=== PATIENT | female | born 1930 | race Caucasian/White ===

== ENCOUNTER 2020-09-17 20:46 | Inpatient (IN) ==
[2020-09-17] MEDS ORDERED: ONDANSETRON INJ 2 MG/ML 2 ML VIAL IV STA (22:13)
[2020-09-17 22:37] LABS: Basophils # (auto) 0.02 K/uL (0-0.2); Basophils % (auto) 0.2 %; Eosinophils # (auto) 0.04 K/uL (0-0.5); Eosinophils % (auto) 0.3 %; Hematocrit (blood only) 42.7 % (37-47); Hemoglobin 14.4 g/dL (12.0-16.0); Immature Granulocytes # (auto) 0.03 K/uL (0.00-0.02); Immature Granulocytes % (auto) 0.3 %; Lymphocytes # (auto) 1.06 K/uL (1.2-3.4); Mean Corpuscular Hgb Conc 33.7 g/dL (32-36); Mean Corpuscular Volume 94.9 fL (80-100); Monocytes # (auto) 0.58 K/uL (0.11-0.59); Monocytes % (auto) 4.9 %; Neutrophils # (auto) 10.07 K/uL (1.4-6.5); Neutrophils % (auto) 85.3 %; Platelet Count 250 K/uL (130-400); RDW Coefficient of Variation 13.2 % (11.5-14.5); RDW Standard Deviation 45.8 fL (36.4-46.3)
[2020-09-17 22:56] LABS: Appearance Urine Cloudy (Clear); Bacteria Urine Automated 4+ (Negative); Bilirubin Urine Negative (Negative); Blood Urine Trace (Negative); Color Urine Dark Yellow; Epithelial Cell Urine Auto 20-30 /lpf (0-5); Glucose Urine UA Negative (Negative); Ketones Urine Trace (Negative); Leukocyte Esterase Urine Negative (Negative); Nitrite Urine Positive (Negative); Protein Urine 3+ (Negative); RBC Urine Automated 0-4 /hpf (0-4); Specific Gravity Urine 1.024 (1.000-1.030); Urobilinogen Urine Negative (Negative); pH Urine 5.5 (4.5-7.5)
[2020-09-17 22:58] LABS: Albumin Level 3.4 gm/dl (3.4-5.0); BUN Creatinine Ratio 24.5 (10-20); Calcium 9.1 mg/dl (8.5-10.1); Creatinine Clr Calc Pharmacy 27.9 ml/min; Est GFR (Non-African American) 38.9 ml/min; Potassium 3.6 mmol/L (3.5-5.1)
[2020-09-17 23:01] LABS: Albumin Globulin Ratio 0.7 (0.9-2); Bilirubin,Total 0.4 mg/dl (0.2-1); Globulin 4.6 gm/dl (2.5-4.0)
[2020-09-17] MEDS ORDERED: OPTIRAY 320 100ml IV ONE (23:10)
[2020-09-17] MEDS ORDERED: cefTRIAXone SODIUM 1,000 MG/50 ML BAG IV STA (23:12)
[2020-09-17] MEDS ORDERED: SODIUM CHLORIDE 0.9% 500 ML IV ONE (23:12)
[2020-09-17] MEDS ORDERED: DAPTOmycin 350 MG in SYRINGE 0 ML IV ONE (23:23)
--- NOTE | 2020-09-18 00:32 | Emergency Department Note ---
History of Present Illness General Chief complaint: Nausea Stated complaint: n/v/d Time Seen by Provider: 09/17/20 22:03 Source: EMS Mode of arrival: EMS Limitations: other (baseline dementia) History of Present Illness Maximum Pain Intensity: 4 This patient is an 89-year-old female who presents via EMS for evaluation of nausea, vomiting and diarrhea. Patient is a resident at [facility] and staff there reported symptoms started tonight. On arrival, patient was incontinent of stool. Patient has dementia at baseline and is unable to contribute to the history. Home Medications Medication Instructions Recorded Confirmed Type aspirin 81 mg tablet,delayed 81 mg PO QAM 08/27/19 09/17/20 History release (Aspirin Low Dose) metoprolol succinate 25 mg 25 mg PO QAM 08/27/19 09/17/20 History tablet,extended release 24 hr risperidone 0.5 mg tablet 0.5 mg PO BID 08/27/19 09/17/20 History acetaminophen 325 mg tablet 650 mg PO Q8H PRN MDD 3 GMS 11/13/19 09/17/20 History APAP/24 HOURS multivitamin (Daily-Shaunna) 1 tab PO QAM 11/13/19 09/17/20 History melatonin 3 mg tablet 3 mg PO HS 04/09/20 09/17/20 History furosemide 20 mg tablet 20 mg PO MOWEFR 07/30/20 09/17/20 History lorazepam 0.5 mg tablet 0.5 mg PO BID 09/05/20 09/17/20 History mirtazapine 15 mg disintegrating 15 mg PO HS 09/05/20 09/17/20 History tablet Allergies Allergy/AdvReac Type Severity Reaction Status Date / Time clonidine Allergy Unknown Verified 09/17/20 22:07 hydrochlorothiazide Allergy Unknown Verified 09/17/20 22:07 nitrofurantoin Allergy Unknown Verified 09/17/20 22:07 Sulfa (Sulfonamide Allergy Unknown Verified 09/17/20 22:07 Antibiotics) milk AdvReac Gastrointestinal Verified 09/17/20 22:07 Upset Past Med/Surg History Medical History (Updated 09/18/20 @ 06:38 by Shaista Vargas PA-C) Anxiety with depression Dementia Fall HTN (hypertension) Social History Smoking Status: Never smoker Hx Substance Use: No Preferred Language: St Helenian Communication 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 Beliefs That Will Affect Care: None Current Living Situation: Personal Care Facility Feels Safe at Home: Yes Assistive Devices: None Review of Systems A total of 10 systems reviewed and were otherwise negative Physical Exam Vital Signs Vital Signs - 24 hr 09/17/20 20:53 09/17/20 20:56 09/17/20 21:00 Temperature 36.9 C Temperature Source Oral Pulse Rate 88 82 86 Pulse Rate from SpO2 Sensor Pulse Rhythm Irregular Pulse Strength Normal Respiratory Rate 27 H 20 13 Respiratory Effort / Characteristics Non-Labored Respiratory Depth Normal Blood Pressure 180/76 H 180/76 H Blood Pressure Mean 110 110 Blood Pressure Position Lying Pulse Oximetry 98 Oxygen Delivery Method Room Air Sepsis Recent Fever Within 48 Hours No Sepsis New/Unexplained Change in Mental Status No Sepsis Action Taken by Nursing No Action Required 09/17/20 22:01 09/17/20 22:31 09/17/20 23:01 Temperature Temperature Source Pulse Rate 88 89 84 Pulse Rate from SpO2 Sensor 90 110 H Pulse Rhythm Pulse Strength Respiratory Rate 9 L 26 H 27 H Respiratory Effort / Characteristics Respiratory Depth Blood Pressure 193/102 H 211/69 H Blood Pressure Mean 132 116 Blood Pressure Position Pulse Oximetry 97 97 90 Oxygen Delivery Method Room Air Room Air Room Air Sepsis Recent Fever Within 48 Hours Sepsis New/Unexplained Change in Mental Status Sepsis Action Taken by Nursing 09/17/20 23:30 Temperature Temperature Source Pulse Rate 87 Pulse Rate from SpO2 Sensor 85 Pulse Rhythm Pulse Strength Respiratory Rate 0 L Respiratory Effort / Characteristics Respiratory Depth Blood Pressure 211/105 H Blood Pressure Mean 140 Blood Pressure Position Pulse Oximetry 94 Oxygen Delivery Method Sepsis Recent Fever Within 48 Hours Sepsis New/Unexplained Change in Mental Status Sepsis Action Taken by Nursing VITALS: Vitals are noted on the nurse's note and reviewed by myself. GENERAL: This is an 89-year-old female, laying on her side in bed. SKIN: The skin was without rashes. EARS: External auditory canals clear, tympanic membranes pearly christine without erythema or effusion bilaterally. EYES: Pupils equal round and reactive to light and accommodation. NOSE: Patent, turbinates without inflammation or discharge. MOUTH: Mucous membranes slightly dry. NECK: Supple without nuchal rigidity. No lymphadenopathy. HEART: Regular rate and rhythm without murmurs gallops or rubs. LUNGS: Clear to auscultation bilaterally without wheezes, rales or rhonchi. ABDOMEN: Positive bowel sounds x 4. Soft, no apparent tenderness to palpation. NEURO: Patient is oriented to person only. Course Administered Medications Pantoprazole Sodium 40 mg/ (Syringe) 10 mls @ 5 mls/min IV BID MINI Stop: 10/18/20 02:44 Last Admin: 09/18/20 03:20 Dose: 5 mls/min Documented by: [id number] Parenteral Electrolytes (Normosol-R) 1,000 mls @ 100 mls/hr IV .Q10H MINI Stop: 10/18/20 03:29 Last Admin: 09/18/20 04:11 Dose: 100 mls/hr Documented by: [id number] Risperidone (Risperidone 0.5 Mg Tablet) 0.5 mg PO BID MINI Stop: 10/18/20 02:36 Last Admin: 09/18/20 04:00 Dose: Not Given Documented by: [id number] Discontinued Medications Sodium Chloride (Nss) 500 mls @ 999 mls/hr IV .Q31M ONE Stop: 09/17/20 23:42 Last Infusion: 09/18/20 03:00 Dose: 0 mls/hr Documented by: [id number] Admin: 09/18/20 00:29 Dose: 999 mls/hr Documented by: [id number] Ceftriaxone Sodium (Rocephin) 1,000 mg in 50 mls @ 100 mls/hr IV NOW STA Stop: 09/17/20 23:41 Last Infusion: 09/18/20 00:58 Dose: 0 mls/hr Documented by: [id number] Admin: 09/18/20 00:27 Dose: 100 mls/hr Documented by: [id number] Daptomycin 350 mg/ Syringe 7 mls @ 3.5 mls/min IV NOW ONE; Protocol Stop: 09/17/20 23:24 Last Admin: 09/18/20 00:22 Dose: 3.5 mls/min Documented by: [id number] Sodium Chloride (Nss 1000ml) 1,000 mls @ 100 mls/hr IV .Q10H MINI Stop: 10/18/20 03:14 Last Admin: 09/18/20 04:02 Dose: Not Given Documented by: [id number] Desmopressin Acetate 18 mcg/ (Sodium Chloride) 54.5 mls @ 100 mls/hr IV NOW STA Stop: 09/18/20 03:48 Last Infusion: 09/18/20 04:44 Dose: 0 mls/hr Documented by: [id number] Admin: 09/18/20 04:09 Dose: 100 mls/hr Documented by: [id number] Ioversol (Optiray 320 100ml) 94 ml IV ONCE ONE Stop: 09/17/20 23:11 Last Admin: 09/17/20 23:11 Dose: 94 ml Documented by: [id number] Metoprolol Tartrate (Metoprolol Tartrate 1 Mg/Ml Vial) 5 mg IV NOW STA Stop: 09/18/20 01:40 Last Admin: 09/18/20 01:53 Dose: 5 mg Documented by: [id number] Ondansetron HCl (Ondansetron Inj 2 Mg/Ml 2 Ml Vial) 4 mg IV NOW STA Stop: 09/17/20 22:14 Last Admin: 09/17/20 22:31 Dose: 4 mg Documented by: [id number] Medical Decision Making Differential Diagnosis Sepsis, UTI, pneumonia, metabolic, electrolyte abnormalities, cardiac sources, intracerebral event, toxicologic, neurologic, as well as other pathologies. Home Medications Current Medication List: was personally reviewed by me Laboratory Data Attestation: I reviewed the patient's lab results. Result diagrams: 09/18/20 03:07 09/17/20 22:28 Lab Results 09/17/20 09/17/20 09/17/20 Range/Units 20:15 20:20 22:25 WBC (4.8-10.8) K/uL RBC (4.2-5.4) M/uL Hgb (12.0-16.0) g/dL Hct (37-47) % MCV (80-100) fL MCH (25-34) pg MCHC (32-36) g/dL RDW Std Deviation (36.4-46.3) fL RDW Coeff of Lissa (11.5-14.5) % Plt Count (130-400) K/uL MPV (7.4-10.4) fL Immature Gran % (Auto) % Neut % (Auto) % Lymph % (Auto) % [place] % (Auto) % Eos % (Auto) % Baso % (Auto) % Neut # (Auto) (1.4-6.5) K/uL Lymph # (Auto) (1.2-3.4) K/uL [place] # (Auto) (0.11-0.59) K/uL Eos # (Auto) (0-0.5) K/uL Baso # (Auto) (0-0.2) K/uL Immature Gran # (Auto) (0.00-0.02) K/uL Sodium (136-145) mmol/L Potassium (3.5-5.1) mmol/L Chloride (98-107) mmol/L Carbon Dioxide (21-32) mmol/L Anion Gap (3-11) BUN (7-18) mg/dl Creatinine (0.6-1.2) mg/dl Est Cr Clr Drug Dosing ml/min Est GFR ( Amer) ml/min Est GFR (Non-Af Amer) ml/min BUN/Creatinine Ratio (10-20) Glucose (70-99) mg/dl Lactate (0.4-2.0) mmol/L Calcium (8.5-10.1) mg/dl Total Bilirubin (0.2-1) mg/dl AST (15-37) U/L ALT (12-78) U/L Alkaline Phosphatase (45-117) U/L Total Protein (6.4-8.2) gm/dl Albumin (3.4-5.0) gm/dl Globulin (2.5-4.0) gm/dl Albumin/Globulin Ratio (0.9-2) Lipase (73-393) U/L Urine Color Dark Yellow Urine Appearance Cloudy A (Clear) Urine pH 5.5 (4.5-7.5) Ur Specific [place] 1.024 (1.000-1.030) Urine Protein 3+ H (Negative) Urine Glucose (UA) Negative (Negative) Urine Ketones Trace H (Negative) Urine Blood Trace H (Negative) Urine Nitrite Positive A (Negative) Urine Bilirubin Negative (Negative) Urine Urobilinogen Negative (Negative) Ur Leukocyte Esterase Negative (Negative) Urine WBC (Auto) 10-30 H (0-5) /hpf Urine RBC (Auto) 0-4 (0-4) /hpf U Hyaline Cast (Auto) 1-5 (0-5) /lpf U Epithel Cells (Auto) 20-30 H (0-5) /lpf Urine Bacteria (Auto) 4+ H (Negative) Urine Yeast Not Reportable Stl C. diff Tox B Gene Negative Cdiff Gene (Neg) COVID-19 Eval Order Covid19 at [facility] SARS-CoV-2 (PCR) (Negative) 09/17/20 09/17/20 09/17/20 Range/Units 22:25 22:28 22:28 WBC 11.80 H (4.8-10.8) K/uL RBC 4.50 (4.2-5.4) M/uL Hgb 14.4 (12.0-16.0) g/dL Hct 42.7 (37-47) % MCV 94.9 (80-100) fL MCH 32.0 (25-34) pg MCHC 33.7 (32-36) g/dL RDW Std Deviation 45.8 (36.4-46.3) fL RDW Coeff of Lissa 13.2 (11.5-14.5) % Plt Count 250 (130-400) K/uL MPV 10.0 (7.4-10.4) fL Immature Gran % (Auto) 0.3 % Neut % (Auto) 85.3 % Lymph % (Auto) 9.0 % [place] % (Auto) 4.9 % Eos % (Auto) 0.3 % Baso % (Auto) 0.2 % Neut # (Auto) 10.07 H (1.4-6.5) K/uL Lymph # (Auto) 1.06 L (1.2-3.4) K/uL [place] # (Auto) 0.58 (0.11-0.59) K/uL Eos # (Auto) 0.04 (0-0.5) K/uL Baso # (Auto) 0.02 (0-0.2) K/uL Immature Gran # (Auto) 0.03 H (0.00-0.02) K/uL Sodium 139 (136-145) mmol/L Potassium 3.6 (3.5-5.1) mmol/L Chloride 108 H (98-107) mmol/L Carbon Dioxide 22 (21-32) mmol/L Anion Gap 10.0 (3-11) BUN 30 H (7-18) mg/dl Creatinine 1.23 H (0.6-1.2) mg/dl Est Cr Clr Drug Dosing 27.9 ml/min Est GFR ( Amer) 45.0 ml/min Est GFR (Non-Af Amer) 38.9 ml/min BUN/Creatinine Ratio 24.5 H (10-20) Glucose 177 H (70-99) mg/dl Lactate (0.4-2.0) mmol/L Calcium 9.1 (8.5-10.1) mg/dl Total Bilirubin 0.4 (0.2-1) mg/dl AST 65 H (15-37) U/L ALT 26 (12-78) U/L Alkaline Phosphatase 95 (45-117) U/L Total Protein 8.0 (6.4-8.2) gm/dl Albumin 3.4 (3.4-5.0) gm/dl Globulin 4.6 H (2.5-4.0) gm/dl Albumin/Globulin Ratio 0.7 L (0.9-2) Lipase 238 (73-393) U/L Urine Color Urine Appearance (Clear) Urine pH (4.5-7.5) Ur Specific [place] (1.000-1.030) Urine Protein (Negative) Urine Glucose (UA) (Negative) Urine Ketones (Negative) Urine Blood (Negative) Urine Nitrite (Negative) Urine Bilirubin (Negative) Urine Urobilinogen (Negative) Ur Leukocyte Esterase (Negative) Urine WBC (Auto) (0-5) /hpf Urine RBC (Auto) (0-4) /hpf U Hyaline Cast (Auto) (0-5) /lpf U Epithel Cells (Auto) (0-5) /lpf Urine Bacteria (Auto) (Negative) Urine Yeast Stl C. diff Tox B Gene (Neg) COVID-19 Eval Order SARS-CoV-2 (PCR) NEGATIVE (Negative) 09/17/20 09/18/20 Range/Units 22:28 00:29 WBC (4.8-10.8) K/uL RBC (4.2-5.4) M/uL Hgb (12.0-16.0) g/dL Hct (37-47) % MCV (80-100) fL MCH (25-34) pg MCHC (32-36) g/dL RDW Std Deviation (36.4-46.3) fL RDW Coeff of Lissa (11.5-14.5) % Plt Count (130-400) K/uL MPV (7.4-10.4) fL Immature Gran % (Auto) % Neut % (Auto) % Lymph % (Auto) % [place] % (Auto) % Eos % (Auto) % Baso % (Auto) % Neut # (Auto) (1.4-6.5) K/uL Lymph # (Auto) (1.2-3.4) K/uL [place] # (Auto) (0.11-0.59) K/uL Eos # (Auto) (0-0.5) K/uL Baso # (Auto) (0-0.2) K/uL Immature Gran # (Auto) (0.00-0.02) K/uL Sodium (136-145) mmol/L Potassium (3.5-5.1) mmol/L Chloride (98-107) mmol/L Carbon Dioxide (21-32) mmol/L Anion Gap (3-11) BUN (7-18) mg/dl Creatinine (0.6-1.2) mg/dl Est Cr Clr Drug Dosing ml/min Est GFR ( Amer) ml/min Est GFR (Non-Af Amer) ml/min BUN/Creatinine Ratio (10-20) Glucose (70-99) mg/dl Lactate 3.0 H* 3.4 H* (0.4-2.0) mmol/L Calcium (8.5-10.1) mg/dl Total Bilirubin (0.2-1) mg/dl AST (15-37) U/L ALT (12-78) U/L Alkaline Phosphatase (45-117) U/L Total Protein (6.4-8.2) gm/dl Albumin (3.4-5.0) gm/dl Globulin (2.5-4.0) gm/dl Albumin/Globulin Ratio (0.9-2) Lipase (73-393) U/L Urine Color Urine Appearance (Clear) Urine pH (4.5-7.5) Ur Specific [place] (1.000-1.030) Urine Protein (Negative) Urine Glucose (UA) (Negative) Urine Ketones (Negative) Urine Blood (Negative) Urine Nitrite (Negative) Urine Bilirubin (Negative) Urine Urobilinogen (Negative) Ur Leukocyte Esterase (Negative) Urine WBC (Auto) (0-5) /hpf Urine RBC (Auto) (0-4) /hpf U Hyaline Cast (Auto) (0-5) /lpf U Epithel Cells (Auto) (0-5) /lpf Urine Bacteria (Auto) (Negative) Urine Yeast Stl C. diff Tox B Gene (Neg) COVID-19 Eval Order SARS-CoV-2 (PCR) (Negative) Imaging Data Attestation: I personally reviewed and interpreted this imaging study as follows: Radiologist's Impression: CT ABDOMEN & PELVIS With Contrast: Small hiatal hernia. No obstruction. The solid organs are within normal limits. Age-indeterminate T12, L2, L3 and L4 compression fractures. Radiologist: Toshia Cooper MD MDM Narrative Continuous cardiac exercise physiologist: Order was placed for continuous cardiac exercise physiologist. Patient was placed on the cardiac exercise physiologist. Patient was noted to be in normal sinus rhythm at an initial rate of 90 bpm. The patient is an 89-year-old female who presents today for evaluation of nausea/vomiting and diarrhea. Patient appears dehydrated on exam. Her lactate was found to be elevated at 3.0. Urinalysis is suggestive of infection. Patient treated with Rocephin and daptomycin. She was given a 500 mL fluid bolus, further fluids held due to atrial fibrillation. [facility], who agreed to evaluate the patient for further care. Impression & Plan Urinary tract infection, Elevated lactic acid level Discharge Plan Visit Data Chief Complaint: Nausea Stated Complaint: n/v/d ED Provider: Glenn Zamorano ED Midlevel Provider: Shaista aVrgas Discharge Problem: Urinary tract infection, Elevated lactic acid level Patient Disposition: Admitted As Inpatient Discharge Instructions Interventions: ED Discharge Assessment Last Done: 09/18/20 02:01 Discharge Problem: Urinary tract infection Qualifiers: Urinary tract infection type: site unspecified Hematuria presence: without hematuria Qualified Code(s): N39.0 - Urinary tract infection, site not specified
--- NOTE | 2020-09-18 01:04 | History & Physical Report ---
Date of Service September 18, 2020 Assessment & Plan (1) Urinary tract infection: Plan: Follow urine culture and sensitivity Empiric ceftriaxone 1 g IV daily NSS + KCl 20 mEq at 100 mils per hour (2) HTN (hypertension): Plan: Given Lopressor 5 mg IV in ED with improved control. If able to swallow, continue metoprolol succinate 25 mg every morning if not, will switch to IV treatment. (3) AMS (altered mental status): Plan: Mental status change/underlying dementia- Continue usual medications as long as able to take p.o. in the morning (4) Dementia: (5) Anxiety with depression: Plan: Continue usual medications (6) Diarrhea: Plan: Stool for C. difficile negative. Stool culture pending Placed on cholestyramine 4 g p.o. twice daily with meals Famotidine 20 mg IV every 12 hours History of Present Illness Chief Complaint: The patient is referred to the emergency department from [facility] due to issues with nausea, vomiting and diarrhea which occurred earlier in the day today [facility] The patient is an 89 yo female with a PMH including HTN, AMS, COVID-19, insomnia, dementia, CHF, anxiety with depression who is referred from [facility] due to the above symptoms.. Work-up in the emergency department included the following abnormalities: AST 65, creatinine 1.23, glucose 177, WBC 11.80, C. difficile negative. Urinalysis was positive for UTI, and patient received ceftriaxone 1 g IV in the ED Allergies Allergy/AdvReac Type Severity Reaction Status Date / Time clonidine Allergy Unknown Verified 09/17/20 22:07 hydrochlorothiazide Allergy Unknown Verified 09/17/20 22:07 nitrofurantoin Allergy Unknown Verified 09/17/20 22:07 Sulfa (Sulfonamide Allergy Unknown Verified 09/17/20 22:07 Antibiotics) milk AdvReac Gastrointestinal Verified 09/17/20 22:07 Upset Home Medications Medication Instructions Recorded Confirmed Type aspirin 81 mg tablet,delayed 81 mg PO QAM 08/27/19 09/17/20 History release (Aspirin Low Dose) metoprolol succinate 25 mg 25 mg PO QAM 08/27/19 09/17/20 History tablet,extended release 24 hr risperidone 0.5 mg tablet 0.5 mg PO BID 08/27/19 09/17/20 History acetaminophen 325 mg tablet 650 mg PO Q8H PRN MDD 3 GMS 11/13/19 09/17/20 History APAP/24 HOURS multivitamin (Daily-Shaunna) 1 tab PO QAM 11/13/19 09/17/20 History melatonin 3 mg tablet 3 mg PO HS 04/09/20 09/17/20 History furosemide 20 mg tablet 20 mg PO MOWEFR 07/30/20 09/17/20 History lorazepam 0.5 mg tablet 0.5 mg PO BID 09/05/20 09/17/20 History mirtazapine 15 mg disintegrating 15 mg PO HS 09/05/20 09/17/20 History tablet Past Med/Surg History Medical History (Updated 09/18/20 @ 02:[address]man MD) Anxiety with depression Dementia Fall HTN (hypertension) Social History Smoking Status: Never smoker Hx Substance Use: No Preferred Language: Lithuanian Communication Ability: Effective Current Living Situation: [facility] Feels Safe at Home: Yes Assistive Devices: None Review of Systems Review of Systems: Unobtainable due to cognitive status Physical Exam Physical Exam: The patient is awake and unresponsive, normocephalic and atraumatic, lying in bed and in no acute distress. HEENT--PERRL, EOMI, mucous membranes and oropharynx dry. Neck--supple. No JVD. No bruits. Thyroid normal, trachea midline, no adenopathy. Heart--normal S1 and S2. No murmurs, rubs or gallops. Lungs--clear bilaterally, no respiratory distress, no accessory muscle use. Abdomen--normal bowel sounds and soft. Nontender. Nondistended, no hernias or masses, no organomegaly. Extremities--no cyanosis or clubbing. No edema. Dermatologic--normal skin turgor, normal color, no abnormal lymph nodes, no rash. Neurologic--cranial nerves II through XII grossly intact. Rheumatologic--limited exam Psychiatric--unresponsive Results & Data Results & Data ([facility]) Vital Signs (Past 12 Hours) Vital Signs Temp Pulse Resp BP Pulse Ox 09/17/20 23:30 87 0 L 211/105 H 94 09/17/20 23:01 84 27 H 211/69 H 90 09/17/20 22:31 89 26 H 97 09/17/20 22:01 88 9 L 193/102 H 97 09/17/20 21:00 86 13 09/17/20 20:56 98.4 F 82 20 180/76 H 98 09/17/20 20:53 88 27 H 180/76 H Laboratory Results Laboratory Results WBC 11.80 K/uL (4.8-10.8) H 09/17/20 22:28 RBC 4.50 M/uL (4.2-5.4) 09/17/20 22:28 Hgb 14.4 g/dL (12.0-16.0) 09/17/20 22: Hct 42.7 % (37-47) 09/17/20 22: MCV 94.9 fL (80-100) 09/17/20 22: MCH 32.0 pg (25-34) 09/17/20 22: MCHC 33.7 g/dL (32-36) 09/17/20 22: RDW Std Deviation 45.8 fL (36.4-46.3) 09/17/20 22: RDW Coeff of Lissa 13.2 % (11.5-14.5) 09/17/20 22: Plt Count 250 K/uL (130-400) 09/17/20 22: MPV 10.0 fL (7.4-10.4) 09/17/20 22: Immature Gran % (Auto) 0.3 % 09/17/20 22: Neut % (Auto) 85.3 % 09/17/20 22: Lymph % (Auto) 9.0 % 09/17/20: [place] % (Auto) 4.9 % 09/17/20 22: Eos % (Auto) 0.3 % 09/17/20 22: Baso % (Auto) 0.2 % 09/17/20: Neut # (Auto) 10.07 K/uL (1.4-6.5) H 09/17/20 22: Lymph # (Auto) 1.06 K/uL (1.2-3.4) L 09/17/20 22: [place] # (Auto) 0.58 K/uL (0.11-0.59) 09/17/20 22:28 Eos # (Auto) 0.04 K/uL (0-0.5) 09/17/20 22:28 Baso # (Auto) 0.02 K/uL (0-0.2) 09/17/20 22:28 Immature Gran # (Auto) 0.03 K/uL (0.00-0.02) H 09/17/20 22:28 Sodium 139 mmol/L (136-145) 09/17/20 22:28 Potassium 3.6 mmol/L (3.5-5.1) 09/17/20 22:28 Chloride 108 mmol/L (98-107) H 09/17/20 22:28 Carbon Dioxide 22 mmol/L (21-32) 09/17/20 22:28 Anion Gap 10.0 (3-11) 09/17/20 22:28 BUN 30 mg/dl (7-18) H 09/17/20 22:28 Creatinine 1.23 mg/dl (0.6-1.2) H 09/17/20 22:28 Est Cr Clr Drug Dosing 27.9 ml/min 09/17/20 22:28 Est GFR ( Amer) 45.0 ml/min 09/17/20 22:28 Est GFR (Non-Af Amer) 38.9 ml/min 09/17/20 22:28 BUN/Creatinine Ratio 24.5 (10-20) H 09/17/20 22:28 Glucose 177 mg/dl (70-99) H 09/17/20 22:28 Lactate 3.4 mmol/L (0.4-2.0) H* 09/18/20 00:29 Calcium 9.1 mg/dl (8.5-10.1) 09/17/20 22: Total Bilirubin 0.4 mg/dl (0.2-1) 09/17/20 22:28 AST 65 U/L (15-37) H 09/17/20 22:28 ALT 26 U/L (12-78) 09/17/20 22:28 Alkaline Phosphatase 95 U/L (45-117) 09/17/20 22:28 Total Protein 8.0 gm/dl (6.4-8.2) 09/17/20 22:28 Albumin 3.4 gm/dl (3.4-5.0) 09/17/20 22:28 Globulin 4.6 gm/dl (2.5-4.0) H 09/17/20 22:28 Albumin/Globulin Ratio 0.7 (0.9-2) L 09/17/20 22:28 Lipase 238 U/L (73-393) 09/17/20 22:28 Urine Color Dark Yellow 09/17/20 20:20 Urine Appearance Cloudy (Clear) A 09/17/20 20:20 Urine pH 5.5 (4.5-7.5) 09/17/20 20:20 Ur Specific [place] 1.024 (1.000-1.030) 09/17/20 20:20 Urine Protein 3+ (Negative) H 09/17/20 20:20 Urine Glucose (UA) Negative (Negative) 09/17/20 20:20 Urine Ketones Trace (Negative) H 09/17/20 20:20 Urine Blood Trace (Negative) H 09/17/20 20:20 Urine Nitrite Positive (Negative) A 09/17/20 20:20 Urine Bilirubin Negative (Negative) 09/17/20 20:20 Urine Urobilinogen Negative (Negative) 09/17/20 20:20 Ur Leukocyte Esterase Negative (Negative) 09/17/20 20:20 Urine WBC (Auto) 10-30 /hpf (0-5) H 09/17/20 20:20 Urine RBC (Auto) 0-4 /hpf (0-4) 09/17/20 20:20 U Hyaline Cast (Auto) 1-5 /lpf (0-5) 09/17/20 20:20 U Epithel Cells (Auto) 20-30 /lpf (0-5) H 09/17/20 20:20 Urine Bacteria (Auto) 4+ (Negative) H 09/17/20 20:20 Urine Yeast Not Reportable 09/17/20 20:20 Stl C. diff Tox B Gene Negative Cdiff Gene (Neg) 09/17/20 20:15 COVID-19 Eval Order Cov[facility]19 at [facility] 09/17/20 22:25 SARS-CoV-2 (PCR) NEGATIVE (Negative) 09/17/20 22:25 Code Status & VTE Plan Code Status DNR/DNI VTE Prophylaxis Plan VTE Prophylaxis will be ordered: Yes PG Care Time/CCT Total # of Minutes Spent Total Time Spent with Patient: Total time spent is greater than 50% in coordination of care (as documented) at patient's floor/unit and/or counseling patient: Coding Level of Care Code 77781 Initial Inpt Care Lvl 2 Diagnoses HTN (hypertension) I10 AMS (altered mental status) R41.82 Dementia F03.90 Dementia behavioral disturbance: without behavioral disturbance Dementia type: unspecified type Urinary tract infection N39.0 Anxiety with depression F41.8 Diarrhea R19.7 (1) Dementia Dementia behavioral disturbance: without behavioral disturbance Dementia type: unspecified type Qualified Code(s): F03.90 - Unspecified dementia without behavioral disturbance
[2020-09-18] MEDS ORDERED: METOPROLOL TARTRATE 1 MG/ML VIAL IV STA (01:39)
[2020-09-18] MEDS ORDERED: ACETAMINOPHEN 325 MG TAB PO PRN ×2 (02:37)
[2020-09-18] MEDS ORDERED: ONDANSETRON INJ 2 MG/ML 2 ML VIAL IV PRN (02:37)
[2020-09-18 03:15] LABS: Hematocrit (blood only) 43.8 % (37-47); Hemoglobin 14.1 g/dL (12.0-16.0)
[2020-09-18] MEDS ORDERED: SODIUM CHLORIDE 0.9% 1000ML 1,000 ML IV SCH (03:15)
[2020-09-18] MEDS ORDERED: DESMOPRESSIN ACETATE 18 MCG in SODIUM CHLORIDE 0.9% 50 ML IV STA (03:19)
[2020-09-18] MEDS: PANTOprazole 40 MG in SYRINGE 0 ML IV SCH ×2 (03:20→08:38)
[2020-09-18] MEDS ORDERED: NORMOSOL-R 1,000 ML IV SCH (03:30)
[2020-09-18] MEDS: risperiDONE 0.5 MG TABLET PO SCH ×2 (04:00→20:23)
[2020-09-18] MEDS: MULTIVITAMIN TAB PO SCH (08:17)
[2020-09-18] MEDS ORDERED: PANTOPRAZOLE BOLUS/DRIP 1 EA IV STA (08:33)
[2020-09-18] MEDS ORDERED: hydrALAZINE HCL 20 MG/ML VIAL IV ONE (08:43)
[2020-09-18] MEDS ORDERED: hydrALAZINE HCL 20 MG/ML VIAL IV PRN (08:44)
[2020-09-18] MEDS ORDERED: PANTOprazole 80 MG in DEXTROSE 5% 100 ML IV ONE (08:45)
--- NOTE | 2020-09-18 08:53 | CT Scan Report ---
ABDOMEN AND PELVIS CT WITH IV CONTRAST CT DOSE: 328.55 mGy.cm HISTORY: Acute generalized abdominal pain with vomiting abdominal pain, vomiting TECHNIQUE: Multiaxial CT images of the abdomen and pelvis were performed following the IV administrat ion of 93 cc of Optiray, A dose lowering technique was utilized adhering to the principles of ALARA. COMPARISON STUDY: CT abdomen and pelvis 08/29/2019 FINDINGS: Cardiomegaly. Extensive coronary artery calcifications. Bibasilar bronchial wall thickening with opacities suggestive of atelectasis. Limited study secondary to upper extremity positioning and respiratory motion artifact. No pneumatosis or pneumoperitoneum. Unremarkable spleen, pancreas, adre nal glands and gallbladder. Unremarkable liver. Patency of the hepatic and portal veins. The kidneys are within normal limits. There is no hydronephrosis. Mild urinary bladder distention. Vascular calci fications of the uterus. Extensive atherosclerotic plaque of the aorta. No aneurysm. No adenopathy. Small to moderate hiatal hernia. Mild circumferential wall thickening of the rectum. Scattered large bowel air-fluid levels. No bowel obstruction. Mild colonic diverticulosis. The appendix is not diagno stically visualized. Scattered small bowel air-fluid levels. Degenerative changes of the spine, pelvi s and hips. Demineralized appearance of the bones. Chronic L3 and T12 compression deformities. Mild i nferior endplate compression of less than 20% at L2 with 30% L4 compression deformities, new from [facility]. IMPRESSION: 1. No bowel obstruction or pneumoperitoneum. 2. Scattered small large bowel air-fluid levels may be physiologic or represent enteritis with diarrh eal illness. 3. Mild rectal wall thickening. Correlate clinically to exclude proctitis. 4. Small to moderate hiatal hernia. 5. Age-indeterminate mild inferior compression of L2 with L4 compression deformity, new from 0. Correlate with point tenderness and patient history. 6. Additional findings as above. ACT 112: Negative or not required by law. The above report was generated using voice recognition software. It may contain grammatical, syntax o r spelling errors. Electronically signed by: Solis Bustillos M.D. 09/18/2020 8:51 AM
[2020-09-18] MEDS ORDERED: HEPARIN SOD 5,000 UNIT/0.5 ML VIAL SQ SCH (09:00)
[2020-09-18] MEDS ORDERED: METOPROLOL SUCC 25MG EXT REL TAB PO SCH (09:00)
[2020-09-18] MEDS ORDERED: ASPIRIN 81 MG ECTAB PO SCH (09:00)
[2020-09-18 09:03] LABS: Hematocrit (blood only) 43.1 % (37-47); Mean Corpuscular Hemoglobin 31.7 pg (25-34); Mean Corpuscular Hgb Conc 32.5 g/dL (32-36); Mean Corpuscular Volume 97.7 fL (80-100); Mean Platelet Volume 10.3 fL (7.4-10.4); Platelet Count 248 K/uL (130-400); RDW Coefficient of Variation 13.4 % (11.5-14.5); RDW Standard Deviation 47.8 fL (36.4-46.3); Red Blood Count 4.41 M/uL (4.2-5.4); White Blood Count 13.74 K/uL (4.8-10.8)
[2020-09-18 09:18] LABS: Albumin Level 3.2 gm/dl (3.4-5.0); BUN Creatinine Ratio 22.8 (10-20); Est GFR (African American) 48.3 ml/min; Est GFR (Non-African American) 41.7 ml/min; Potassium 3.9 mmol/L (3.5-5.1)
[2020-09-18 09:21] LABS: Albumin Globulin Ratio 0.7 (0.9-2); Bilirubin,Total 0.4 mg/dl (0.2-1); Globulin 4.3 gm/dl (2.5-4.0); Total Protein 7.5 gm/dl (6.4-8.2)
[2020-09-18] MEDS: SODIUM CHLORIDE 0.9% 1000ML 1,000 ML IV SCH ×2 (09:28→17:08)
[2020-09-18] MEDS: PANTOprazole 40 MG in DEXTROSE 5% 100 ML IV SCH ×3 (09:28→20:39)
--- NOTE | 2020-09-18 09:49 | Gastrointestinal Consultation ---
Date of Consultation September 18, 2020 Assessment & Plan (1) Rectal bleeding: Protonix Drip. Spoke with Granddaughter who lives in [place]. Explained indication for EGD, that if upper GI bleeding is present then we would likely be able to stop the bleeding during the EGD. Risks discussed. She is definitely at higher risk due to age, and demented patient sometimes have increased confusion for a few days after sedation. Given the alternative of protonix drip, IV fluids and continuing to watch the pt, and reconsider EGD later if bleeding worsens. The Granddaughter is unsure if the family wants to go forward with an EGD. She will speak to the pt's son who is her uncle, then get back to us. While family deciding on EGD, will arrange GI bleeding scan. If the source of the bleeding is identified on the scan than we could reconsider targeted procedures for the site of bleeding. Supervising Physician Co-Signing Physician Notes I saw and evaluated the patient. We were consulted for question of melena and is elderly patient with an underlying history of severe dementia. After discussion with the patient's family they would like us to proceed with upper endoscopy for further evaluation. We have discussed the risks and benefits to include bleeding, infection, perforation and need for follow-up studies Physical examination Elderly female no obvious distress No scleral icterus Impression: Patient presenting with symptoms suggestive of a gastrointestinal bleed we will proceed with upper endoscopy this afternoon to ensure she does not have an upper GI source. If the upper endoscopy is negative then perhaps the patient would benefit from a GI bleeding scan to look for an alternate etiology. Recommendations Upper endoscopy pending today, consent obtained from the patient's granddaughter via telephone earlier this afternoon. History of Present Illness Reason for Consultation: GI bleeding Requesting Physician: Dr. Zhao Attending Physician: Radha Martinez, History of Present Illness Ms. Deedee Max is an 89 yr old female pt of Dr. Beckman who lives at [facility] and was transferred here early today for maroon diarrhea. There was also note of nausea/vomiting prior to arrival. She carries a hx of dementia, HTN. Since arrival, several loose michaela BMs. BUN is mildly elevated at 30 but Hb remains stable at 14. She is not verbal and not able to provide a history. She is hypertensive with irregular HR in the 90's. O2 sat is 96%on room air. Allergies Allergy/AdvReac Type Severity Reaction Status Date / Time clonidine Allergy Unknown Verified 09/17/20 22:07 hydrochlorothiazide Allergy Unknown Verified 09/17/20 22:07 nitrofurantoin Allergy Unknown Verified 09/17/20 22:07 Sulfa (Sulfonamide Allergy Unknown Verified 09/17/20 22:07 Antibiotics) milk AdvReac Gastrointestinal Verified 09/17/20 22:07 Upset Home Medications Medication Instructions Recorded Confirmed Type aspirin 81 mg tablet,delayed 81 mg PO QAM 08/27/19 09/17/20 History release (Aspirin Low Dose) metoprolol succinate 25 mg 25 mg PO QAM 08/27/19 09/17/20 History tablet,extended release 24 hr risperidone 0.5 mg tablet 0.5 mg PO BID 08/27/19 09/17/20 History acetaminophen 325 mg tablet 650 mg PO Q8H PRN MDD 3 GMS 11/13/19 09/17/20 History APAP/24 HOURS multivitamin (Daily-Shaunna) 1 tab PO QAM 11/13/19 09/17/20 History melatonin 3 mg tablet 3 mg PO HS 04/09/20 09/17/20 History furosemide 20 mg tablet 20 mg PO MOWEFR 07/30/20 09/17/20 History lorazepam 0.5 mg tablet 0.5 mg PO BID 09/05/20 09/17/20 History mirtazapine 15 mg disintegrating 15 mg PO HS 09/05/20 09/17/20 History tablet Patient History Medical History Anxiety with depression Dementia Fall HTN (hypertension) Social History Smoking Status: Never smoker Hx Substance Use: No Preferred Language: Azeri Communication Ability: Impaired Truck Loader Required: No Beliefs That Will Affect Care: None Current Living Situation: Personal Care Facility Feels Safe at Home: Yes Assistive Devices: None Review of Systems Review of Systems: Unable to obtain ROS from pt. Physical Exam Constitutional: Frail white female who is reactive to sound, touch but not verbal and does not attempt to answer any questions. ENMT: Ears: no external ear abnormality Nose: + external nose abnormality Neck: trachea midline, no thyromegaly Thyroid: normal thyroid; no thyroid nodules and thyroid nontender Respiratory: normal respiratory effort, lungs clear to auscultation Cardiovascular: Irregular, rate in the 90's, no murmurs; no significant peripheral edema Gastrointestinal (Abdomen): normal bowel sounds, soft, nontender, no hepatosplenomegaly Skin: warm, dry, no pallor, no skin breakdown/ulcerations Neurologic: Does not attempt to speak or communicate non verbally. Results & Data ([facility]) Vital Signs (Past 12 Hours) Vital Signs Temp Pulse Pulse Resp BP BP BP 09/18/20 08:01 36.8 C 91 H 16 194/112 H 09/18/20 04:12 36.6 C 88 16 09/18/20 03:11 36.4 C L 96 H 18 176/59 H 09/18/20 02:38 36.4 C L 98 H 20 166/86 H 09/18/20 02:01 113 H 22 216/116 H 09/18/20 01:58 89 22 214/86 H 09/18/20 01:53 93 H 206/115 H 09/18/20 01:31 99 H 23 206/115 H 09/17/20 23:30 87 0 L 211/105 H 09/17/20 23:01 84 27 H 211/69 H 09/17/20 22:31 89 26 H 09/17/20 22:01 88 9 L 193/102 H BP Pulse Ox 09/18/20 08:01 205/119 H 96 09/18/20 04:12 189/74 H 95 09/18/20 03:11 96 09/18/20 02:38 95 09/18/20 02:01 96 09/18/20 01:58 95 09/18/20 01:53 09/18/20 01:31 96 09/17/20 23:30 94 09/17/20 23:01 90 09/17/20 22:31 97 09/17/20 22:01 97 Laboratory Results WBC 11, Hb 14, Hct 43, Plts 250, Na 139, K 3.6, BUN 30, Cr 1.23 Diagnostic Findings CTAP 09/17/20: 1. No bowel obstruction or pneumoperitoneum. 2. Scattered small large bowel air-fluid levels may be physiologic or represent enteritis with diarrheal illness. 3. Mild rectal wall thickening. Correlate clinically to exclude proctitis. 4. Small to moderate hiatal hernia. 5. Age-indeterminate mild inferior compression of L2 with L4 compression deformity, new from 08/29/2019. Correlate with point tenderness and patient history. 6. Additional findings as above. Medications Administered Protonix drip started
[2020-09-18] MEDS ORDERED: SODIUM CHLORIDE 0.9% 1000ML 250 ML IV ONE (10:12)
[2020-09-18] MEDS: CHOLESTYRAMINE LIGHT 4 GM PKT PO SCH ×2 (10:14→23:19)
--- NOTE | 2020-09-18 10:54 | Anesthesiology Consultation ---
Date of Service September 18, 2020 History Height/Weight Height: 5 ft 2 in Weight: 59.5 kg Allergies Allergy/AdvReac Type Severity Reaction Status Date / Time clonidine Allergy Unknown Verified 09/17/20 22:07 hydrochlorothiazide Allergy Unknown Verified 09/17/20 22:07 nitrofurantoin Allergy Unknown Verified 09/17/20 22:07 Sulfa (Sulfonamide Allergy Unknown Verified 09/17/20 22:07 Antibiotics) milk AdvReac Gastrointestinal Verified 09/17/20 22:07 Upset Medications Home Medications Medication Instructions Recorded Confirmed Last Taken aspirin 81 mg tablet,delayed 81 mg PO QAM 08/27/19 09/17/20 09/17/20 08:00 release (Aspirin Low Dose) metoprolol succinate 25 mg 25 mg PO QAM 08/27/19 09/17/20 09/17/20 08:00 tablet,extended release 24 hr risperidone 0.5 mg tablet 0.5 mg PO BID 08/27/19 09/17/20 09/17/20 08:00 acetaminophen 325 mg tablet 650 mg PO Q8H PRN MDD 3 GMS 11/13/19 09/17/20 Unkn own APAP/24 HOURS multivitamin (Daily-Shaunna) 1 tab PO QAM 11/13/19 09/17/20 09/17/20 08:00 melatonin 3 mg tablet 3 mg PO HS 04/09/20 09/17/20 09/16/20 19:00 furosemide 20 mg tablet 20 mg PO MOWEFR 07/30/20 09/17/20 09/16/20 08:00 lorazepam 0.5 mg tablet 0.5 mg PO BID 09/05/20 09/17/20 09/17/20 08:00 mirtazapine 15 mg disintegrating 15 mg PO HS 09/05/20 09/17/20 09/16/20 19:00 tablet Active Medications Generic Name Dose Route Start Last Admin Trade Name Freq PRN Reason Stop Dose Admin Cholestyramine Resin 4 gm 09/18/20 10:00 09/18/20 10:14 Cholestyramine Light 4 Gm Pkt PO 10/18/20 09:59 Not Given BID@1000,2200 MINI Pantoprazole Sodium 40 mg/ 100 mls @ 20 mls/hr 09/18/20 09:00 09/18/20 09:28 Dextrose IV 10/18/20 08:59 8 mg/hr Q5H MINI 20 mls/hr Administration 8 MG/HR Sodium Chloride 1,000 mls @ 125 mls/hr 09/18/20 08:45 09/18/20 09:28 Nss 1000ml IV 10/18/20 08:44 125 mls/hr .Q8H MINI Administration Multivitamins 1 tab 09/18/20 09:00 09/18/20 08:17 Multivitamin Tab PO 10/18/20 08:59 Not Given QAM MINI Risperidone 0.5 mg 09/18/20 02:37 09/18/20 04:00 Risperidone 0.5 Mg Tablet PO 10/18/20 02:36 Not Given BID MINI Past Medical History Medical History Anxiety with depression Dementia Fall HTN (hypertension) Social History Smoking Status: Never smoker Hx Substance Use: No substance use type: does not use Physical Exam Vital Signs Last Vital Signs Temp 97.9 F 09/18/20 10:17 Pulse 122 H 09/18/20 10:17 Resp 22 09/18/20 10:17 BP 96/78 L 09/18/20 10:17 Pulse Ox 95 09/18/20 10:17 Testing Laboratory Results 09/18/20 08:37 09/18/20 08:37 Urine Color Dark Yellow 09/17/20 20:20 Urine Appearance Cloudy (Clear) A 09/17/20 20:20 Urine pH 5.5 (4.5-7.5) 09/17/20 20:20 Ur Specific [place] 1.024 (1.000-1.030) 09/17/20 20:20 Urine Protein 3+ (Negative) H 09/17/20 20:20 Urine Glucose (UA) Negative (Negative) 09/17/20 20:20 Urine Ketones Trace (Negative) H 09/17/20 20:20 Urine Nitrite Positive (Negative) A 09/17/20 20:20 Ur Leukocyte Esterase Negative (Negative) 09/17/20 20:20 Urine WBC (Auto) 10-30 /hpf (0-5) H 09/17/20 20:20 Urine RBC (Auto) 0-4 /hpf (0-4) 09/17/20 20:20 U Hyaline Cast (Auto) 1-5 /lpf (0-5) 09/17/20 20:20 U Epithel Cells (Auto) 20-30 /lpf (0-5) H 09/17/20 20:20 Urine Bacteria (Auto) 4+ (Negative) H 09/17/20 20:20 Blood Type A Positive 09/17/20 23:35 Antibody Screen NEGATIVE 09/17/20 23:35 Laboratory Tests 09/17/20 22:25 SARS-CoV-2 (PCR) NEGATIVE Electrocardiogram Date: 09/17/20 Atrial fibrillation, rate 91 bpm Rightward axis Anterior infarct , age undetermined ST & T wave abnormality, consider inferior ischemia Abnormal ECG When compared with ECG of 05-SEP-2020 14:01, T wave inversion now evident in Inferior leads Chest X-Ray Date: 07/28/20 IMPRESSION: 1. Cardiomegaly. 2. Slight elevation of interstitium. Mild pulmonary vascular congestion not excluded 2. Increase left mid and lower lung zone markings likely atelectatic.
[2020-09-18] MEDS: METOPROLOL TARTRATE 1 MG/ML VIAL IV SCH ×3 (11:52→23:20)
--- NOTE | 2020-09-18 13:15 | Electrocardiogram Report ---
Test Reason : Blood Pressure : / mmHG Vent. Rate : 091 BPM Atrial Rate : 087 BPM P-R Int : 000 ms QRS Dur : 094 ms QT Int : 378 ms P-R-T Axes : 000 106 -62 degrees QTc Int : 464 ms Atrial fibrillation Rightward axis Abnormal ECG When compared with ECG of 05-SEP-2020 14:01, T wave inversion now evident in Inferior leads Confirmed by Lenin Alves ([id number]) on 09/18/2020 1:15:02 PM [facility] By: [email or web address] Confirmed By:Brent Alves
--- NOTE | 2020-09-18 14:02 | Communication Note ---
Date of Service: September 18, 2020 The patient underwent upper endoscopy this afternoon after consent was obtained from her family. She was found to have a medium size hiatal hernia of appro ximately 5 cm. She was found to have severe gastritis of the gastric body, biopsies were obtained. Recommendations Protonix 40 mg twice daily for 4 weeks then 1 time daily thereafter Carafate 1 g 4 times daily for 2 weeks Await pathology results Consider a repeat upper endoscopy in 8 to 12 weeks If significant hematochezia persists would consider a tagged RBC study
[2020-09-18] MEDS ORDERED: PROPOFOL IV EMULSION 10 MG/ML 20 ML VIAL IV ONE (14:03)
[2020-09-18] MEDS ORDERED: LIDOCAINE 2% 2 ML VIAL/AMP(20MG/ML) INFIL ONE (14:03)
--- NOTE | 2020-09-18 14:10 | GI REPORT ---
Patient Name: Deedee Max Procedure Date: 09/18/2020 1:33 PM Date of : 1930 Admit Type: Inpatient Age: 89 Gender: Female Attending MD: Dustin Steiner DO Procedure: Upper GI endoscopy Providers: Dustin Steiner DO Referring MD: Augustine Zhao Indications: Melena Medicines: Monitored Anesthesia Care Complications: No immediate complications. Estimated blood loss: Minimal. Estimated Blood Loss: Estimated blood loss was minimal. Procedure: Pre-Anesthesia Assessment: - Prior to the procedure, a History and Physical was performed, and patient medications, allergies and sensitivities were reviewed. The patient's tolerance of previous anesthesia was reviewed. - The patient is unable to give consent secondary to the patient's altered mental status. The alternatives, risks and benefits of the procedure were discussed at length with the patient's relative. The patient's proxy verbalized understanding of the risks as well as the alternatives and wished to proceed with the procedure. - Patient identification and proposed procedure were verified prior to the procedure by the physician, the nurse and the pole cutter. The procedure was verified in the procedure room. - Pre-procedure physical examination revealed no contraindications to sedation. - ASA Grade Assessment: IV - A patient with severe systemic disease that is a constant threat to life. - After reviewing the risks and benefits, the patient was deemed in satisfactory condition to undergo the procedure. - The anesthesia plan was to use monitored anesthesia care (MAC). - Immediately prior to administration of medications, the patient was re-assessed for adequacy to receive sedatives. - The heart rate, respiratory rate, oxygen saturations, blood pressure, adequacy of pulmonary ventilation, and response to care were monitored throughout the procedure. After obtaining informed consent, the endoscope was passed under direct vision. Throughout the procedure, the patient's blood pressure, pulse, and oxygen saturations were monitored continuously. The Scope was introduced through the mouth, and advanced to the third part of duodenum. The upper GI endoscopy was accomplished without difficulty. The patient tolerated the procedure well. Findings: The middle third of the esophagus and lower third of the esophagus were moderately tortuous. A medium-sized hiatal hernia was found. The proximal extent of the gastric folds (end of tubular esophagus) was 33 cm from the incisors. The hiatal narrowing was 38 cm from the incisors. The Z-line was 33 cm from the incisors. Localized severe inflammation characterized by adherent blood, congestion (edema), erythema and granularity was found on the greater curvature of the gastric body. Biopsies were taken with a cold forceps for histology. The pathology specimen was placed into Bottle B. Estimated blood loss was minimal. The gastric fundus, gastric antrum and pylorus were normal. The examined duodenum was normal. A non-obstructing Schatzki ring was found at the gastroesophageal junction. Impression: - Tortuous esophagus. - Medium-sized hiatal hernia. - Gastritis. Biopsied. - Normal gastric fundus, antrum and pylorus. - Normal examined duodenum. - Non-obstructing Schatzki ring. Recommendation: - [facility]. - Use Protonix (pantoprazole) 40 mg PO BID for 4 weeks to reduce to 20 mg per day. - Use sucralfate tablets 1 gram PO QID for 2 weeks. - Await pathology results. - Would normally recommend a repeat upper endoscopy in 8 to 12 weeks for surveillance however given the patient's age comorbidities this may not be in her best interest. Would defer this decision to her primary care provider Dustin Steiner D.O. Dustin Steiner, 09/18/2020 2:09:24 PM This report has been signed electronically. Note Initiated On: 09/18/2020 1:33 PM Number of Addenda: 0 I attest to the content of the Intraoperative Record and orders documented therein, exceptions below {[id number]}
--- NOTE | 2020-09-18 14:17 | Anesthesiology Progress Note ---
Date of Service September 18, 2020 Anesthesia Post Procedure Vital Signs Vital Signs: Temp Pulse Pulse Resp BP BP BP 09/18/20 14:07 98.1 F 117 H 16 09/18/20 13:30 98.1 F 112 H 20 09/18/20 12:36 92 H 09/18/20 12:05 114 H 18 127/62 09/18/20 11:52 110 H 146/56 H 09/18/20 11:51 110 H 09/18/20 11:33 112 H 09/18/20 10:17 97.9 F 122 H 22 09/18/20 08:01 98.2 F 91 H 16 194/112 H 09/18/20 04:12 97.9 F 88 16 09/18/20 03:11 97.5 F L 96 H 18 176/59 H 09/18/20 02:38 97.5 F L 98 H 20 166/86 H 09/18/20 02:01 113 H 22 216/116 H 09/18/20 01:58 89 22 214/86 H 09/18/20 01:53 93 H 206/115 H 09/18/20 01:31 99 H 23 206/115 H 09/17/20 23:30 87 0 L 211/105 H 09/17/20 23:01 84 27 H 211/69 H 09/17/20 22:31 89 26 H 09/17/20 22:01 88 9 L 193/102 H 09/17/20 21:00 86 13 09/17/20 20:56 98.4 F 82 20 180/76 H 09/17/20 20:53 88 27 H 180/76 H BP Pulse Ox 09/18/20 14:07 143/99 H 97 09/18/20 13:30 158/95 H 97 09/18/20 12:36 138/71 09/18/20 12:05 96 09/18/20 11:52 09/18/20 11:51 146/56 H 09/18/20 11:33 09/18/20 10:17 96/78 L 95 09/18/20 08:01 205/119 H 96 09/18/20 04:12 189/74 H 95 09/18/20 03:11 96 09/18/20 02:38 95 09/18/20 02:01 96 09/18/20 01:58 95 07/16/21 01:53 09/18/20 01:31 96 09/17/20 23:30 94 09/17/20 23:01 90 09/17/20 22:31 97 09/17/20 22:01 97 09/17/20 21:00 09/17/20 20:56 98 09/17/20 20:53 Pain Intensity Abdomen: Pain Intensity: 5 Transfer of Care Handoff Completed per policy Notes Mental Status: alert / awake / arousable and participated in evaluation Patient Amnestic to Procedure: Yes Nausea / Vomiting: adequately controlled Pain: adequately controlled Airway Patency, RR, SpO2: stable & adequate BP & HR: stable & adequate Hydration State: stable & adequate Anesthetic Complications: no major complications apparent and Pt Satisfied with anesthetic care
[2020-09-18] MEDS: SUCRALFATE 1 GM TAB PO SCH ×2 (16:38→21:12)
[2020-09-18 18:08] LABS: Hematocrit (blood only) 39.8 % (37-47)
--- NOTE | 2020-09-18 18:29 | Hospitalist Progress Note ---
Date of Service September 18, 2020 Assessment & Plan (1) GI bleed: Plan: In 10-year-old female with history of dementia and atrial fibrillation on aspirin presenting with diarrhea and melena. Acute GI bleed Hemoglobin stable around 14 Monitor every 6 hours Status post EGD: Positive for medium sized hiatal hernia, gastritis, nonobstructing Schatzi's ring Biopsy result pending Maintain Protonix IV tonight, transition to 40 mg p.o. twice daily tomorrow (x4 weeks then 20 mg daily) Sucralfate 1 g p.o. 4 times daily x2 weeks GI recommending decision for repeat EGD in 8 to 12 weeks to be determined by PCP given advanced age Diarrhea Likely secondary to #1 C. difficile negative Stool cultures pending Possible UTI Urine culture pending Continue ceftriaxone Hypertension Patient noted to be hypotensive systolic 80s to 90s after hydralazine 5 mg IV given this morning Hydralazine 2.5 mg IV as needed, monitor for hypotension Chronic A. fib No other anticoagulation secondary to bleeding Usually on metoprolol p.o. and aspirin Convert metoprolol to IV for now Aspirin unknown secondary to GI bleed Dementia Monitor for delirium Disposition Return to care home facility when medically stable Follow-up with PCP in 1 week Admission and Anticipated Discharge Date Admission Date: September 18, 2020 Subjective Follow-up for diarrhea, GI bleed, etc. Seen resting in bed, awake and alert, but confused, not in distress Was having loose stools, melanotic per RN, every hour Blood pressure also elevated, hydralazine IV given Review of systems unobtainable secondary to patient's underlying dementia No signs of distress, pain, shortness of breath No other issues per ostomy care nurse of Systems Review of Systems: Unable to obtain secondary to dementia Physical Exam Physical Exam: General-awake, alert, confused, not in distress, speaks in sentences with no effort or accessory muscle use Head- atraumatic Eyes- PERRL, EOMI, anicteric ENT- oropharynx clear Neck- supple, no JVD, no adenopathy, no thyromegaly; carotids +2/2, no bruits appreciated Lungs- clear to auscultation bilaterally, no rales/wheezes Heart- normal rate, regular rhythm; no murmur, no gallop, no rub appreciated Abdomen- normal bowel sounds, nondistended, soft, nontender, no masses or hepatosplenomegaly Extremities- no pretibial edema, no calf tenderness; peripheral pulses intact Neuro- alert, oriented x 0; no gross focal neurologic deficit noted Skin- warm & dry Results & Data Results & Data ([facility]) Vital Signs (Past 12 Hours) Vital Signs Temp Pulse Pulse Resp BP BP BP 09/18/20 17:04 110 H 158/80 H 09/18/20 15:04 36.2 C L 119 H 18 167/94 H 09/18/20 14:36 105 H 18 143/79 H 09/18/20 14:21 112 H 16 135/52 L 09/18/20 14:07 36.7 C 117 H 16 143/99 H 09/18/20 13:30 36.7 C 112 H 20 158/95 H 09/18/20 12:36 92 H 138/71 09/18/20 12:05 114 H 18 127/62 09/18/20 11:52 110 H 146/56 H 09/18/20 11:51 110 H 146/56 H 09/18/20 11:33 112 H 09/18/20 10:17 36.6 C 122 H 22 96/78 L 09/18/20 08:01 36.8 C 91 H 16 194/112 H 205/119 H Pulse Ox 09/18/20 17:04 09/18/20 15:04 97 09/18/20 14:36 99 09/18/20 14:21 98 09/18/20 14:07 97 09/18/20 13:30 97 09/18/20 12:36 09/18/20 12:05 96 09/18/20 11:52 09/18/20 11:51 09/18/20 11:33 09/18/20 10:17 95 09/18/20 08:01 96 all noted and reviewed including below
[2020-09-18 18:30] LABS: BUN Creatinine Ratio 22.1 (10-20); Calcium 8.2 mg/dl (8.5-10.1); Creatinine Clr Calc Pharmacy 25.1 ml/min; Est GFR (African American) 46.4 ml/min; Potassium 3.8 mmol/L (3.5-5.1)
[2020-09-18] MEDS: cefTRIAXone SODIUM 1,000 MG in DEXTROSE 5% 50 ML IV SCH (20:22)
[2020-09-18] MEDS: MELATONIN 3 MG TAB PO SCH (20:23)
[2020-09-18] MEDS: MIRTAZAPINE SOLTAB 15 MG PO SCH (20:23)
[2020-09-19 00:44] LABS: Hematocrit (blood only) 37.9 % (37-47); Hemoglobin 12.5 g/dL (12.0-16.0)
[2020-09-19] MEDS: SODIUM CHLORIDE 0.9% 1000ML 1,000 ML IV SCH ×2 (01:20→11:17)
[2020-09-19] MEDS: PANTOprazole 40 MG in DEXTROSE 5% 100 ML IV SCH ×2 (01:20→06:02)
[2020-09-19] MEDS: METOPROLOL TARTRATE 1 MG/ML VIAL IV SCH ×4 (06:02→23:22)
[2020-09-19 06:14] LABS: Basophils # (auto) 0.01 K/uL (0-0.2); Basophils % (auto) 0.1 %; Hematocrit (blood only) 37.3 % (37-47); Hemoglobin 12.3 g/dL (12.0-16.0); Immature Granulocytes # (auto) 0.06 K/uL (0.00-0.02); Immature Granulocytes % (auto) 0.4 %; Lymphocytes # (auto) 0.89 K/uL (1.2-3.4); Lymphocytes % (auto) 5.7 %; Mean Corpuscular Hemoglobin 31.5 pg (25-34); Mean Corpuscular Volume 95.6 fL (80-100); Mean Platelet Volume 10.3 fL (7.4-10.4); Monocytes # (auto) 1.37 K/uL (0.11-0.59); Monocytes % (auto) 8.8 %; Neutrophils # (auto) 13.32 K/uL (1.4-6.5); Platelet Count 220 K/uL (130-400); RDW Coefficient of Variation 13.8 % (11.5-14.5); RDW Standard Deviation 48.2 fL (36.4-46.3); White Blood Count 15.65 K/uL (4.8-10.8)
[2020-09-19 06:49] LABS: Albumin Level 2.8 gm/dl (3.4-5.0); BUN Creatinine Ratio 23.5 (10-20); Calcium 7.9 mg/dl (8.5-10.1); Creatinine Clr Calc Pharmacy 32.4 ml/min; Est GFR (African American) 63.2 ml/min; Est GFR (Non-African American) 54.5 ml/min; Potassium 3.3 mmol/L (3.5-5.1)
[2020-09-19 06:59] LABS: Albumin Globulin Ratio 0.8 (0.9-2); Bilirubin,Total 0.6 mg/dl (0.2-1); Globulin 3.4 gm/dl (2.5-4.0); Total Protein 6.2 gm/dl (6.4-8.2)
[2020-09-19] MEDS: hydrALAZINE HCL 20 MG/ML VIAL IV PRN ×2 (07:36→16:17)
[2020-09-19] MEDS: POTASSIUM CHLORIDE / WTR 10 MEQ/100 ML PLCT IV SCH ×4 (08:43→12:57)
[2020-09-19] MEDS ORDERED: PANTOprazole 40 MG TAB PO SCH (09:00)
[2020-09-19] MEDS: risperiDONE 0.5 MG TABLET PO SCH ×2 (10:13→20:31)
[2020-09-19] MEDS: MULTIVITAMIN TAB PO SCH (10:13)
[2020-09-19] MEDS: SUCRALFATE 1 GM TAB PO SCH ×4 (10:13→20:32)
[2020-09-19] MEDS: CHOLESTYRAMINE LIGHT 4 GM PKT PO SCH ×2 (10:14→20:32)
[2020-09-19] MEDS: PANTOprazole 40 MG in SYRINGE 0 ML IV SCH ×2 (11:28→20:29)
[2020-09-19 12:07] LABS: Hematocrit (blood only) 37.5 % (37-47); Hemoglobin 12.5 g/dL (12.0-16.0)
--- NOTE | 2020-09-19 18:05 | Hospitalist Progress Note ---
Date of Service September 19, 2020 Assessment & Plan (1) GI bleed: Plan: In 10-year-old female with history of dementia and atrial fibrillation on aspirin presenting with diarrhea and melena. Acute GI bleed, likely from Gastritis Hemoglobin 14 --> 12, 12 Status post EGD: Positive for medium sized hiatal hernia, gastritis, nonobstructing Schatzi's ring Biopsy result pending Protonix IV--> 40 mg IV twice daily tomorrow (x4 weeks then 20 mg daily) Sucralfate 1 g p.o. 4 times daily x2 weeks GI recommending decision for repeat EGD in 8 to 12 weeks to be determined by PCP given advanced age Diarrhea Likely secondary to #1 C. difficile negative Stool cultures pending Possible UTI Urine culture gram negative bacilli Continue ceftriaxone Hypertension PRN Hydralazine Chronic A. fib No anticoagulation secondary to bleeding Usually on metoprolol p.o. and aspirin Convert metoprolol to IV for now Aspirin on hold secondary to GI bleed Dementia Monitor for delirium [facility] Follow-up with PCP in 1 week Admission and Anticipated Discharge Date Admission Date: September 18, 2020 Subjective ff up for GI bleed, etc seen resting in bed, sleeping, easily awakened mostly staring, does not follow simple commands no signs of new focal neurologic deficit had maroon colored stools in AM per RN no other issues Review of Systems Review of Systems: all negative except above Physical Exam Physical Exam: General- awake, not in distress Eyes- anicteric Neck- no JVD Lungs- clear breath sounds bilaterally, no rales/wheezes Heart- normal rate, regular rhythm; no murmurs Abdomen- normal bowel sounds, nondistended, soft, nontender Extremities- no pretibial edema, no calf tenderness Neuro- alert, oriented x 0; no new gross focal neurologic deficits Skin- warm & dry Results & Data Results & Data ([facility]) Vital Signs (Past 12 Hours) Vital Signs Temp Pulse Pulse Resp BP BP BP 09/19/20 17:24 101 H 125/90 09/19/20 15:59 37.1 C 110 H 20 190/85 H 09/19/20 14:20 108 H 09/19/20 11:31 37.1 C 111 H 16 187/88 H 09/19/20 11:22 108 H 187/88 H 09/19/20 07:41 36.7 C 99 H 20 172/102 H 195/85 H 09/19/20 07:00 93 H 09/19/20 06:02 102 H 188/93 H Pulse Ox 09/19/20 17:24 09/19/20 15:59 96 09/19/20 14:20 09/19/20 11:31 95 09/19/20 11:22 09/19/20 07:41 94 09/19/20 07:00 09/19/20 06:02
[2020-09-19 18:38] LABS: Hematocrit (blood only) 38.9 % (37-47); Hemoglobin 12.8 g/dL (12.0-16.0)
[2020-09-19] MEDS: cefTRIAXone SODIUM 1,000 MG in DEXTROSE 5% 50 ML IV SCH (20:29)
[2020-09-19] MEDS: MIRTAZAPINE SOLTAB 15 MG PO SCH (20:31)
[2020-09-19] MEDS: MELATONIN 3 MG TAB PO SCH (20:31)
[2020-09-20] MEDS: SODIUM CHLORIDE 0.9% 1000ML 1,000 ML IV SCH (03:20)
[2020-09-20] MEDS: hydrALAZINE HCL 20 MG/ML VIAL IV PRN ×3 (04:04→12:56)
[2020-09-20] MEDS: METOPROLOL TARTRATE 1 MG/ML VIAL IV SCH ×3 (05:01→13:09)
[2020-09-20 06:55] LABS: Hematocrit (blood only) 39.1 % (37-47); Hemoglobin 12.7 g/dL (12.0-16.0); Mean Corpuscular Hemoglobin 31.2 pg (25-34); Mean Corpuscular Hgb Conc 32.5 g/dL (32-36); Mean Corpuscular Volume 96.1 fL (80-100); Mean Platelet Volume 10.4 fL (7.4-10.4); Platelet Count 197 K/uL (130-400); RDW Coefficient of Variation 14.2 % (11.5-14.5); RDW Standard Deviation 50.4 fL (36.4-46.3); Red Blood Count 4.07 M/uL (4.2-5.4); White Blood Count 14.64 K/uL (4.8-10.8)
[2020-09-20 07:23] LABS: Basophils # (auto) 0.01 K/uL (0-0.2); Basophils % (auto) 0.1 %; Dohle Bodies 1+; Immature Granulocytes # (auto) 0.09 K/uL (0.00-0.02); Immature Granulocytes % (auto) 0.6 %; Lymphocytes # (auto) 1.01 K/uL (1.2-3.4); Lymphocytes % (auto) 6.9 %; Monocytes % (auto) 8.2 %; Neutrophils # (auto) 12.33 K/uL (1.4-6.5); Neutrophils % (auto) 84.2 %
[2020-09-20 07:31] LABS: Albumin Level 2.4 gm/dl (3.4-5.0); BUN Creatinine Ratio 24.2 (10-20); Calcium 8.2 mg/dl (8.5-10.1); Creatinine Clr Calc Pharmacy 33.9 ml/min; Est GFR (African American) 66.6 ml/min; Est GFR (Non-African American) 57.5 ml/min; Potassium 3.4 mmol/L (3.5-5.1)
[2020-09-20 07:34] LABS: Albumin Globulin Ratio 0.6 (0.9-2); Bilirubin,Total 0.4 mg/dl (0.2-1); Globulin 3.8 gm/dl (2.5-4.0); Total Protein 6.2 gm/dl (6.4-8.2)
[2020-09-20] MEDS: MULTIVITAMIN TAB PO SCH (08:09)
[2020-09-20] MEDS: SUCRALFATE 1 GM TAB PO SCH ×4 (08:10→21:52)
[2020-09-20] MEDS: risperiDONE 0.5 MG TABLET PO SCH (08:10)
[2020-09-20] MEDS: PANTOprazole 40 MG in SYRINGE 0 ML IV SCH ×2 (08:40→22:40)
[2020-09-20] MEDS: POTASSIUM CHLORIDE / WTR 10 MEQ/100 ML PLCT IV SCH ×4 (09:13→13:26)
--- NOTE | 2020-09-20 10:10 | CT Scan Report ---
CT OF THE HEAD WITHOUT CONTRAST CLINICAL HISTORY: altered mental status, r/o CVA COMPARISON STUDY: Head CT September 05, 2020. CT DOSE: 614.27 mGy.cm TECHNIQUE: Helical axial images of the head were obtained without IV contrast. Automated exposure con trol was utilized for the study. A dose lowering technique was utilized adhering to the principles o f ALARA. FINDINGS: No acute intracranial, midline shift or mass effect is present. Ventricular system is stabl e. Basal cisterns are patent. There are no extra-axial collections. Extensive white matter hypodensit ies are similar to prior exam. These favor small vessel disease. There are no findings to suggest acu te dural sinus thrombosis or acute territorial infarct. There are no significant calvarial abnormalit ies. There is mild ethmoid sinus mucosal thickening. IMPRESSION: No acute intracranial findings. No change in appearance of the brain. ACT 112: Negative or not required by law. Electronically signed by: Mick Serrano M.D. 09/20/2020 10:08 AM
[2020-09-20] MEDS: risperiDONE ODT 0.5 MG SOLTAB PO SCH ×2 (12:37→21:52)
[2020-09-20] MEDS: METOPROLOL SUCC 25MG EXT REL TAB PO SCH (14:37)
[2020-09-20] MEDS: D5NSS + 20MEQ KCL 20 MEQ/1,000 ML BAG IV SCH (15:29)
[2020-09-20] MEDS ORDERED: MICONAZOLE NITRATE POWDER 43 GM EXT PRN (16:42)
[2020-09-20 17:01] LABS: Hematocrit (blood only) 38.7 % (37-47); Hemoglobin 12.6 g/dL (12.0-16.0)
--- NOTE | 2020-09-20 17:12 | Hospitalist Progress Note ---
Date of Service September 20, 2020 Assessment & Plan (1) GI bleed: Plan: In 10-year-old female with history of dementia and atrial fibrillation on aspirin presenting with diarrhea and melena. Acute GI bleed, likely from Gastritis Hemoglobin 14 --> 12, 12 Status post EGD: Positive for medium sized hiatal hernia, gastritis, nonobstructing Schatzi's ring Biopsy result pending Protonix IV--> 40 mg IV twice daily (x4 weeks then 20 mg daily) Sucralfate 1 g p.o. 4 times daily x2 weeks GI recommending decision for repeat EGD in 8 to 12 weeks to be determined by PCP given advanced age Diarrhea Likely secondary to #1 C. difficile negative Stool cultures negative Possible UTI Urine culture E. coli Ceftriaxone day #3 Hypertension PRN Hydralazine We will add amlodipine 5 mg p.o. daily Chronic A. fib No anticoagulation secondary to bleeding Usually on metoprolol p.o. and aspirin Continue usual metoprolol 25 mg p.o. daily Aspirin on hold secondary to GI bleed Dementia Patient mostly lethargic since last night Risperidone ordered to be sublingual, with improvement of mental status Always assist with feeding Disposition Return to [facility] facility when medically stable Follow-up with PCP in 1 week Admission and Anticipated Discharge Date Admission Date: September 18, 2020 Subjective Follow-up for acute GI bleed, etc. Seen resting bed, sleeping, arousable to verbal stimuli Patient opens eyes, said good morning, otherwise no verbal output today, does not follow commands Occasionally moves extremities, no signs of focal deficits Mostly lethargic, not able to take p.o. medications or meals per RN since last night Discussed with [facility] nursing [facility] Patient has baseline dementia, has episodes of lethargy-related to not taking her risperidone No other issues per bathhouse keeper of Systems Review of Systems: Noted and reviewed, negative except for above Physical Exam Physical Exam: General-not oriented, not in distress, breathing with no effort or accessory muscle use Eyes- anicteric Neck- no JVD Lungs- clear breath sounds bilaterally, no crackles Heart- normal rate, regular rhythm; no murmurs Abdomen- normal bowel sounds, nondistended, soft, nontender Extremities- no pretibial edema, no calf tenderness Neuro- alert, oriented x 0; no new gross focal neurologic deficits Skin- warm & dry Results & Data Results & Data ([facility]) Vital Signs (Past 12 Hours) Vital Signs Temp Pulse Pulse Resp BP BP Pulse Ox 09/20/20 15:57 37.3 C 114 H 16 156/97 H 95 09/20/20 13:09 140 H 174/75 H 09/20/20 12:55 84 174/75 H 09/20/20 11:28 37.2 C 133 H 16 179/83 H 97 09/20/20 11:20 133 H 179/83 H 09/20/20 08:42 96 H 149/92 H 09/20/20 07:22 37.4 C 97 H 20 194/106 H 92 09/20/20 07:15 99 H 09/20/20 06:02 163/82 H
[2020-09-20 17:13] LABS: Magnesium 1.7 mg/dl (1.8-2.4)
[2020-09-20] MEDS ORDERED: PANTOprazole 40 MG in SYRINGE 0 ML IV SCH (17:15)
[2020-09-20] MEDS: cefTRIAXone SODIUM 1,000 MG in DEXTROSE 5% 50 ML IV SCH (19:53)
[2020-09-20] MEDS: MIRTAZAPINE SOLTAB 15 MG PO SCH (21:50)
[2020-09-20] MEDS: MELATONIN 3 MG TAB PO SCH (21:53)
[2020-09-20] MEDS: MAGNESIUM OXIDE 400 MG TAB PO SCH (21:53)
[2020-09-21] MEDS: METOPROLOL TARTRATE 1 MG/ML VIAL IV PRN ×2 (01:07→17:08)
[2020-09-21] MEDS: D5NSS + 20MEQ KCL 20 MEQ/1,000 ML BAG IV SCH (04:29)
[2020-09-21] MEDS: hydrALAZINE HCL 20 MG/ML VIAL IV PRN (04:30)
[2020-09-21 09:08] LABS: Hematocrit (blood only) 36.4 % (37-47); Hemoglobin 11.6 g/dL (12.0-16.0); Mean Corpuscular Hemoglobin 30.8 pg (25-34); Mean Corpuscular Hgb Conc 31.9 g/dL (32-36); Mean Corpuscular Volume 96.6 fL (80-100); Mean Platelet Volume 10.8 fL (7.4-10.4); Platelet Count 210 K/uL (130-400); RDW Coefficient of Variation 14.3 % (11.5-14.5); RDW Standard Deviation 51.1 fL (36.4-46.3); Red Blood Count 3.77 M/uL (4.2-5.4); White Blood Count 9.38 K/uL (4.8-10.8)
[2020-09-21 09:26] LABS: ALC (manual) 0.83 K/uL (1.2-3.4); ANC (manual) 7.57 K/uL (1.4-6.5); Dohle Bodies 1+; Lymphocytes # (manual) 0.83 K/uL (1.2-3.4); Lymphocytes % (manual) 8.8 %; Monocytes # (manual) 0.98 K/uL (0.11-0.59); Monocytes % (manual) 10.5 %; Neutrophils # (manual) 7.57 K/uL (1.4-6.5); Neutrophils % (manual) 80.7 %
[2020-09-21 09:27] LABS: BUN Creatinine Ratio 24.5 (10-20); Calcium 8.4 mg/dl (8.5-10.1); Est GFR (African American) 58.6 ml/min; Est GFR (Non-African American) 50.5 ml/min; Magnesium 2.1 mg/dl (1.8-2.4); Potassium 3.7 mmol/L (3.5-5.1)
[2020-09-21] MEDS: SUCRALFATE 1 GM TAB PO SCH ×4 (10:10→20:49)
[2020-09-21] MEDS: PANTOprazole 40 MG in SYRINGE 0 ML IV SCH ×2 (10:10→20:39)
[2020-09-21] MEDS: MULTIVITAMIN TAB PO SCH (10:10)
[2020-09-21] MEDS: amLODIPine BESYLATE 5 MG TAB PO SCH (10:10)
[2020-09-21] MEDS: MAGNESIUM OXIDE 400 MG TAB PO SCH ×2 (10:10→20:50)
[2020-09-21] MEDS: METOPROLOL SUCC 25MG EXT REL TAB PO SCH (10:10)
[2020-09-21] MEDS: risperiDONE ODT 0.5 MG SOLTAB PO SCH ×2 (10:11→20:49)
--- NOTE | 2020-09-21 17:16 | Hospitalist Progress Note ---
Date of Service September 21, 2020 Assessment & Plan (1) GI bleed: Plan: In 10-year-old female with history of dementia and atrial fibrillation on aspirin presenting with diarrhea and melena. Acute GI bleed, likely from Gastritis Hemoglobin 14 --> 12, 12--11.6 Status post EGD: Positive for medium sized hiatal hernia, gastritis, nonobstructing Schatzi's ring Biopsy result pending Protonix IV--> 40 mg IV twice daily (x4 weeks then 20 mg daily) Sucralfate 1 g p.o. 4 times daily x2 weeks GI recommending decision for repeat EGD in 8 to 12 weeks to be determined by PCP given advanced age Hemoglobin slightly decreased but no signs of repeat GI bleed Repeat H&H tomorrow Diarrhea Likely secondary to #1 C. difficile negative Stool cultures negative E. coli UTI Urine culture E. coli Ceftriaxone day #4/5 Hypertension PRN Hydralazine Increase hydralazine to 10 mg p.o. daily Chronic A. fib No anticoagulation secondary to bleeding Usually on metoprolol p.o. and aspirin Continue usual metoprolol 25 mg p.o. daily Aspirin on hold secondary to GI bleed Dementia Patient mostly lethargic since last night Risperidone ordered to be sublingual, with improvement of mental status Always assist with feeding --Mental status improving Disposition Return to nursing home facility when medically stable Follow-up with PCP in 1 week Admission and Anticipated Discharge Date Admission Date: September 18, 2020 Subjective Follow-up for acute GI bleed, etc. Seen resting in bed, sleeping but easily awakened Opens eyes but does not follow commands, but seems to be moving all extremities equally Was able to take medications for this morning No report of melena or hematochezia No other symptoms Review of Systems Review of Systems: All other negative except for above Physical Exam Physical Exam: General- oriented x 0, not in distress, breathing with no effort or accessory muscle use Eyes- anicteric Neck- no JVD Lungs- clear breath sounds bilaterally, no crackles or wheezing noted Heart- normal rate, regular rhythm; no murmurs Abdomen- normal bowel sounds, nondistended, soft, nontender Extremities- no pretibial edema, no calf tenderness Neuro-no new neurologic deficits Skin- warm & dry Results & Data Results & Data ([facility]) Vital Signs (Past 12 Hours) Vital Signs Temp Pulse Pulse Pulse Resp BP BP 07/19/21 15:50 36.3 C L 116 H 19 176/75 H 09/21/20 15:11 109 H 09/21/20 11:49 36.7 C 111 H 20 161/62 H 09/21/20 08:36 37.2 C 115 H 19 170/85 H 09/21/20 07:10 100 H Pulse Ox 09/21/20 15:50 96 09/21/20 15:11 09/21/20 11:49 97 09/21/20 08:36 96 09/21/20 07:10 all noted and reviewed including below
[2020-09-21] MEDS ORDERED: amLODIPine BESYLATE 5 MG TAB PO ONE (17:30)
[2020-09-21] MEDS: cefTRIAXone SODIUM 1,000 MG in DEXTROSE 5% 50 ML IV SCH (20:32)
[2020-09-21] MEDS: MIRTAZAPINE SOLTAB 15 MG PO SCH (20:49)
[2020-09-21] MEDS: MELATONIN 3 MG TAB PO SCH (20:50)
[2020-09-22] MEDS: amLODIPine BESYLATE 5 MG TAB PO SCH (08:12)
[2020-09-22] MEDS: METOPROLOL SUCC 25MG EXT REL TAB PO SCH (08:12)
[2020-09-22] MEDS: SUCRALFATE 1 GM TAB PO SCH ×4 (08:12→19:44)
[2020-09-22 08:13] LABS: Hematocrit (blood only) 36.5 % (37-47); Hemoglobin 11.4 g/dL (12.0-16.0); Mean Corpuscular Hemoglobin 30.5 pg (25-34); Mean Corpuscular Hgb Conc 31.2 g/dL (32-36); Mean Corpuscular Volume 97.6 fL (80-100); Mean Platelet Volume 9.6 fL (7.4-10.4); Platelet Count 202 K/uL (130-400); RDW Coefficient of Variation 14.6 % (11.5-14.5); RDW Standard Deviation 52.8 fL (36.4-46.3); Red Blood Count 3.74 M/uL (4.2-5.4)
[2020-09-22] MEDS: MAGNESIUM OXIDE 400 MG TAB PO SCH ×2 (08:13→19:44)
[2020-09-22] MEDS: risperiDONE ODT 0.5 MG SOLTAB PO SCH ×2 (08:13→19:44)
[2020-09-22] MEDS: MULTIVITAMIN TAB PO SCH (08:13)
[2020-09-22] MEDS: PANTOprazole 40 MG in SYRINGE 0 ML IV SCH (08:17)
[2020-09-22 08:48] LABS: ALC (manual) 0.93 K/uL (1.2-3.4); ANC (manual) 5.88 K/uL (1.4-6.5); Dohle Bodies 1+; Lymphocytes # (manual) 0.93 K/uL (1.2-3.4); Lymphocytes % (manual) 10.4 %; Metamyelocytes # (manual) 0.08 K/uL (0-0); Metamyelocytes % (manual) 0.9 %; Monocytes # (manual) 1.86 K/uL (0.11-0.59); Monocytes % (manual) 20.9 %; Myelocytes # (manual) 0.15 K/uL (0-0); Myelocytes % (manual) 1.7 %; Neutrophils # (manual) 5.88 K/uL (1.4-6.5); Neutrophils % (manual) 66.1 %
[2020-09-22 09:53] LABS: Calcium 8.5 mg/dl (8.5-10.1); Creatinine Clr Calc Pharmacy 32.6 ml/min; Est GFR (African American) 57.2 ml/min; Est GFR (Non-African American) 49.3 ml/min; Potassium 3.7 mmol/L (3.5-5.1)
[2020-09-22] MEDS: DEXTROSE 5% 1,000 ML IV SCH (15:57)
--- NOTE | 2020-09-22 17:42 | Hospitalist Progress Note ---
Date of Service September 22, 2020 Assessment & Plan (1) GI bleed: Plan: In 10-year-old female with history of dementia and atrial fibrillation on aspirin presenting with diarrhea and melena. Acute GI bleed, likely from Gastritis Hemoglobin 14 --> 11 Hemoglobin slightly decreased , occasional maroon stools- likely residual Hg stable around 11 for 2 days now Status post EGD: Positive for medium sized hiatal hernia, gastritis, nonobstructing Schatzi's ring Biopsy result pending Protonix IV--> 40 mg PO twice daily x4 weeks, then 20 mg daily Sucralfate 1 g p.o. 4 times daily x2 weeks GI recommending decision for repeat EGD in 8 to 12 weeks to be determined by PCP given advanced age Repeat H&H tomorrow Diarrhea Likely secondary to #1 C. difficile negative Stool cultures negative resolved E. coli UTI Urine culture E. coli Ceftriaxone day #07/08 Hypertension PRN Hydralazine Added Amlodipine 10 mg p.o. daily BP improving Chronic A. fib No anticoagulation secondary to bleeding Usually on metoprolol p.o. and aspirin Continue usual metoprolol 25 mg p.o. daily Aspirin on hold secondary to GI bleed discuss with GI re: timing of Aspirin resumption Dementia Patient lethargic when unable to take Risperidone per [facility] staff, patient is mostly awake but can be lethargic at time Always assist with feeding --Mental status improving Hypernatremia Na 141--> 150 D5W at 60cc/hr PRP daily Disposition Return to long-term facility when medically stable, Na normalizes Follow-up with PCP in 1 week Admission and Anticipated Discharge Date Admission Date: September 18, 2020 Subjective ff up for GI bleed, etc seen resting in bed, awake, but no eye contact, speaks random words does not follow commands not in distress, no signs of pain had maroon colored stools today again- Hg stable minimal food intake, taking oral medications no other symptoms Review of Systems Review of Systems: all noted and negative except for above Physical Exam Physical Exam: General- oriented x 0, not in distress, speaks in phrases with no effort or accessory muscle use Eyes- anicteric Neck- no JVD Lungs- clear breath sounds bilaterally Heart- normal rate, regular rhythm; no murmurs Abdomen- normal bowel sounds, nondistended, soft, nontender Extremities- no pretibial edema, no calf tenderness Neuro- alert, oriented x 0; no new gross focal neurologic deficits Skin- warm & dry Results & Data Results & Data ([facility]) Vital Signs (Past 12 Hours) Vital Signs Temp Pulse Pulse Pulse Resp BP Pulse Ox 09/22/20 15:32 37.2 C 101 H 18 147/68 H 96 09/22/20 15:18 97 H 09/22/20 11:50 36.9 C 106 H 20 129/76 95 09/22/20 09:25 117 H 09/22/20 07:46 36.7 C 53 L 109 H 20 147/75 H 96 all noted and reviewed including below
[2020-09-22] MEDS: cefTRIAXone SODIUM 1,000 MG in DEXTROSE 5% 50 ML IV SCH (19:41)
[2020-09-22] MEDS: PANTOprazole 40 MG TAB PO SCH (19:44)
[2020-09-22] MEDS: MIRTAZAPINE SOLTAB 15 MG PO SCH (19:44)
[2020-09-22] MEDS: METOPROLOL TARTRATE 1 MG/ML VIAL IV PRN (23:52)
[2020-09-23] MEDS: amLODIPine BESYLATE 5 MG TAB PO SCH (08:33)
[2020-09-23] MEDS: SUCRALFATE 1 GM TAB PO SCH ×4 (08:33→22:03)
[2020-09-23] MEDS: PANTOprazole 40 MG TAB PO SCH (08:33)
[2020-09-23] MEDS: METOPROLOL SUCC 25MG EXT REL TAB PO SCH (08:33)
[2020-09-23] MEDS: MAGNESIUM OXIDE 400 MG TAB PO SCH ×2 (08:33→22:03)
[2020-09-23] MEDS: MULTIVITAMIN TAB PO SCH (08:33)
[2020-09-23] MEDS: risperiDONE ODT 0.5 MG SOLTAB PO SCH ×2 (08:33→22:03)
[2020-09-23 08:42] LABS: BUN Creatinine Ratio 28.3 (10-20); Calcium 8.2 mg/dl (8.5-10.1); Creatinine Clr Calc Pharmacy 32.1 ml/min; Est GFR (African American) 62.3 ml/min; Est GFR (Non-African American) 53.8 ml/min; Potassium 3.3 mmol/L (3.5-5.1)
[2020-09-23] MEDS ORDERED: POTASSIUM CHLORIDE CRTAB 20 MEQ TABCR PO STA (09:08)
--- NOTE | 2020-09-23 09:11 | Hospitalist Progress Note ---
Date of Service September 23, 2020 Assessment & Plan (1) GI bleed: Plan: In 10-year-old female with history of dementia and atrial fibrillation on aspirin presenting with diarrhea and melena. Acute GI bleed, likely from Gastritis Hemoglobin 14 --> 11 Hemoglobin slightly decreased , occasional maroon stools- likely residual Hg stable around 11 for 2 days now Status post EGD: Positive for medium sized hiatal hernia, gastritis, nonobstructing Schatzi's ring Biopsy result pending Protonix IV--> 40 mg PO twice daily x4 weeks, then daily Sucralfate 1 g p.o. 4 times daily x2 weeks GI recommending decision for repeat EGD in 8 to 12 weeks to be determined by PCP given advanced age Repeat H&H tomorrow Aspiration? 09/23/2020 -This morning observed by nursing staff that patient had difficulty swallowing, and sounded gurgly She was suctioned by nursing staff Speech therapist was contacted, and speech eval obtained at bedside recommend n.p.o. Contacted pt's granddaughter, she says no to any feeding tubes Asked her about palliative medicine consultation She is especially concerned about her psychiatric medications, says that this has been been managed and sometimes changed without psychiatry notice Reports that pt had a catatonic episode in May, and so psychiatry consultation requested Update: In the evening of September 23 patient developed fever Blood cultures, urine, stool cultx, c. diff, chest x-ray obtained Antibiotics changed to Zosyn from ceftriaxone for poss. aspiration Diarrhea Likely secondary to #1 C. difficile negative Stool cultures negative resolved E. coli UTI Urine culture E. coli Ceftriaxone day #5/5 - finished (now antibiotics broadened) Hypertension PRN Hydralazine Added Amlodipine 10 mg p.o. daily BP was improving Now BP low Chronic A. fib No anticoagulation secondary to bleeding Usually on metoprolol p.o. and aspirin Continue usual metoprolol 25 mg p.o. daily (now NPO) Aspirin on hold secondary to GI bleed discuss with GI re: timing of Aspirin resumption Dementia Patient lethargic when unable to take Risperidone per [facility] staff, patient is mostly awake but can be lethargic at time Always assist with feeding --Mental status improving - Now npo d/t high risk of aspiration Hypernatremia Na 141--> 150 D5W at 60cc/hr PRP daily Now Na 146 -147 Disposition Not clear at this time Previous plan was Return to [facility] facility when medically stable, Na normalizes Follow-up with PCP in 1 week Admission and Anticipated Discharge Date Admission Date: September 18, 2020 Subjective Pt seen in follow-up for GI bleed, etc Patient is sitting up in bed, in no acute distress however her eyes are closed, and she is barely responsive She was also having difficulty with swallowing any liquids, speech does not follow commands not in distress, no signs of pain had maroon colored stools today again- Hg stable minimal food intake, taking oral medications no other symptoms Ask for speech evaluation, patient is currently n.p.o. Updated granddaughter, about current status, per granddaughter no feeding tubes She is worried that it could be caused by her psychiatric medications, and is requesting psychiatry eval, reports that patient had a "catatonic episode in May" Review of Systems Review of Systems: Unable to obtain review of systems from this patient Physical Exam Physical Exam: General- elderly F, not in distress, however barely responsive Eyes- anicteric Neck- no JVD Lungs- clear breath sounds bilaterally Heart- normal rate, regular rhythm; no murmurs Abdomen- normal bowel sounds, nondistended, soft, nontender Extremities- no pretibial edema, no calf tenderness Neuro- barely responsive, only answers very few questions, gives 1 word answers Skin- warm & dry Results & Data Results & Data ([facility]) Vital Signs (Past 12 Hours) Vital Signs Temp Pulse Pulse Resp BP BP BP 09/23/20 08:35 36.5 C 106 H 20 145/67 H 09/23/20 07:14 93 H 09/23/20 03:22 36.9 C 98 H 19 143/69 H 09/23/20 00:00 101 H 18 120/65 09/22/20 23:52 120 H 134/74 09/22/20 23:00 98 H 09/22/20 22:13 37 C 98 H 18 131/64 Pulse Ox 09/23/20 08:35 96 09/23/20 07:14 09/23/20 03:22 95 09/23/20 00:00 09/22/20 23:52 09/22/20 23:00 09/22/20 22:13 95 Laboratory Results 09/23/20 09/22/20 Range/Units 07:47 08:00 Sodium 148 H 150 H (136-145) mmol/L Potassium 3.3 L 3.7 (3.5-5.1) mmol/L Chloride 122 H 124 H (98-107) mmol/L Carbon Dioxide 20 L 19 L (21-32) mmol/L Anion Gap 7.0 8.0 (3-11) BUN 27 H 28 H (7-18) mg/dl Creatinine 0.94 1.01 (0.6-1.2) mg/dl Est Cr Clr Drug Dosing 32.1 32.6 ml/min Est GFR ( Amer) 62.3 57.2 ml/min Est GFR (Non-Af Amer) 53.8 49.3 ml/min BUN/Creatinine Ratio 28.3 H 28.0 H (10-20) Glucose 113 H 87 (70-99) mg/dl Calcium 8.2 L 8.5 (8.5-10.1) mg/dl Medications Administered Current Inpatient Medications Acetaminophen (Acetaminophen 325 Mg Tab) 650 mg PO Q4H PRN PRN Reason: pain/fever Stop: 10/18/20 02:36 Amlodipine Besylate (Amlodipine Besylate 5 Mg Tab) 5 mg PO QAM [facility] Stop: 10/21/20 08:59 Last Admin: 09/23/20 08:33 Dose: 5 mg Documented by: Hydralazine HCl (Hydralazine Hcl 20 Mg/Ml Vial) 2.5 mg IV Q6H PRN PRN Reason: hypertension Stop: 10/18/20 08:44 Last Admin: 09/21/20 04:30 Dose: 2.5 mg Documented by: Ceftriaxone Sodium 1,000 mg/ (Dextrose) 50 mls @ 100 mls/hr IV Q24H [facility]; Protocol Stop: 09/27/20 19:59 Last Infusion: 09/22/20 20:15 Dose: Infused Documented by: Dextrose (D5w) 1,000 mls @ 60 mls/hr IV .[id number] [facility] Stop: 10/22/20 15:29 Last Infusion: 09/23/20 07:41 Dose: Infused Documented by: Magnesium Oxide (Magnesium Oxide 400 Mg Tab) 400 mg PO BID [facility] Stop: 10/20/20 20:59 Last Admin: 09/23/20 08:33 Dose: 400 mg Documented by: Melatonin (Melatonin 3 Mg Tab) 3 mg PO HS [facility] Stop: 10/18/20 20:59 Last Admin: 09/21/20 20:50 Dose: Not Given Documented by: Metoprolol Succinate (Metoprolol Succ 25mg Ext Rel Tab) 25 mg PO QAM [facility] Stop: 10/20/20 13:44 Last Admin: 09/23/20 08:33 Dose: 25 mg Documented by: Metoprolol Tartrate (Metoprolol Tartrate 1 Mg/Ml Vial) 2.5 mg IV Q6 PRN PRN Reason: tachycardia Stop: 10/18/20 11:29 Last Admin: 09/22/20 23:52 Dose: 2.5 mg Documented by: Miconazole Nitrate (Miconazole Nitrate Powder 43 Gm) 1 appln EXT PRN PRN PRN Reason: Affected Skin Folds Stop: 10/20/20 16:41 Mirtazapine (Mirtazapine Soltab 15 Mg) 15 mg PO [facility] Stop: 10/18/20 20:59 Last Admin: 09/22/20 19:44 Dose: 15 mg Documented by: Multivitamins (Multivitamin Tab) [facility] Stop: 10/18/20 08:59 Last Admin: 09/23/20 08:33 Dose: 1 tab Documented by: Ondansetron HCl (Ondansetron Inj 2 Mg/Ml 2 Ml Vial) 4 mg IV Q6H PRN PRN Reason: Nausea Stop: 10/18/20 02:36 Pantoprazole Sodium (Pantoprazole 40 Mg Tab) 40 mg PO BID [facility] Stop: 10/22/20 20:59 Last Admin: 09/23/20 08:33 Dose: 40 mg Documented by: Potassium Chloride (Potassium Chloride Crtab 20 Meq Tabcr) 40 meq PO NOW STA Stop: 09/23/20 09:09 Risperidone (Risperidone Odt 0.5 Mg Soltab) 0.5 mg PO BID [facility] Stop: 10/20/20 12:29 Last Admin: 09/23/20 08:33 Dose: 0.5 mg Documented by: Sucralfate (Sucralfate 1 Gm Tab) 1 gm PO QID [facility] Stop: 10/18/20 16:59 Last Admin: 09/23/20 08:33 Dose: 1 gm Documented by:
[2020-09-23] MEDS ORDERED: CONSULT PHARMACY STA (18:56)
[2020-09-23 19:06] LABS: Appearance Urine Clear (Clear); Bacteria Urine Automated 1+ (Negative); Blood Urine Trace (Negative); Color Urine Dark Yellow; Epithelial Cell Urine Auto >30 /lpf (0-5); Glucose Urine UA Negative (Negative); Ketones Urine Trace (Negative); Leukocyte Esterase Urine Trace (Negative); Nitrite Urine Positive (Negative); Protein Urine 2+ (Negative); Specific Gravity Urine 1.034 (1.000-1.030); Urobilinogen Urine Negative (Negative)
[2020-09-23 19:09] LABS: Bilirubin Urine 1+ (Negative)
[2020-09-23] MEDS ORDERED: ACETAMINOPHEN 1000 MG/100 ML IV IV PRN (19:18)
[2020-09-23 19:25] LABS: Mucus Urine Present (None Prsent); RBC Urine Automated 0-4 /hpf (0-4)
--- NOTE | 2020-09-23 19:36 | XRay Report ---
XR chest 1V portable CLINICAL HISTORY: fever, poss. aspiration COMPARISON STUDY: Chest radiograph July 28, 2020. FINDINGS: Patient is rotated. There is no pneumothorax or pleural effusion. There is pulmonary vascul ar congestion with suspected mild pulmonary edema. Mild left lower lung opacities are present. Cardio mediastinal silhouette is stable. IMPRESSION: 1. Interstitial thickening suggestive of mild pulmonary edema. 2. Mild left lower lung opacities. This could reflect an infectious process or atelectasis. ACT 112: Negative or not required by law. Electronically signed by: Mick Serrano M.D. 09/23/2020 7:34 PM
[2020-09-23] MEDS ORDERED: PIPERACILL/TAZOBAC CONSULT ACTIVE PRN (19:43)
[2020-09-23] MEDS ORDERED: PIPERACILLIN/TAZOBACTAM 3.375 GM in DEXTROSE 5% 100 ML IV ONE (20:00)
[2020-09-23] MEDS: cefTRIAXone SODIUM 1,000 MG in DEXTROSE 5% 50 ML IV SCH (20:48)
[2020-09-23] MEDS: MIRTAZAPINE SOLTAB 15 MG PO SCH (22:02)
[2020-09-23] MEDS: PANTOprazole 40 MG in SYRINGE 0 ML IV SCH (22:13)
[2020-09-24] MEDS ORDERED: SODIUM CHLORIDE 0.9% 500 ML IV SCH ×2 (00:16→04:45)
[2020-09-24] MEDS ORDERED: VANCOMYCIN CONSULT ACTIVE PRN (01:12)
[2020-09-24] MEDS ORDERED: VANCOMYCIN HCL 1,000 MG in SODIUM CHLORIDE 0.9% 250 ML IV SCH (01:15)
[2020-09-24] MEDS ORDERED: VANCOMYCIN HCL 1,250 MG in SODIUM CHLORIDE 0.9% 250 ML IV STA (01:15)
[2020-09-24 01:39] LABS: Hematocrit (blood only) 29.7 % (37-47); Hemoglobin 9.4 g/dL (12.0-16.0); Mean Corpuscular Hemoglobin 31.2 pg (25-34); Mean Corpuscular Hgb Conc 31.6 g/dL (32-36); Mean Corpuscular Volume 98.7 fL (80-100); Mean Platelet Volume 9.7 fL (7.4-10.4); Platelet Count 178 K/uL (130-400); RDW Coefficient of Variation 14.5 % (11.5-14.5); RDW Standard Deviation 52.1 fL (36.4-46.3); Red Blood Count 3.01 M/uL (4.2-5.4); White Blood Count 9.16 K/uL (4.8-10.8)
[2020-09-24 01:44] LABS: Base Excess ABG -4.5 mEq/L (-9-1.8); HCO3 ABG 20 mmol/L (19-24); Oxygen Saturation ABG 98.2 % (90-95); PCO2 ABG 32 mmHg (35-46); PO2 ABG 110 mmHg (80-95)
[2020-09-24 01:48] LABS: Allen Test POS (Pos)
[2020-09-24] MEDS: PIPERACILLIN/TAZOBACTAM 3.375 GM in DEXTROSE 5% 100 ML IV SCH ×2 (01:54→09:43)
[2020-09-24 02:00] LABS: Albumin Level 1.6 gm/dl (3.4-5.0); BUN Creatinine Ratio 22.4 (10-20); Calcium 7.6 mg/dl (8.5-10.1); Creatinine Clr Calc Pharmacy 22.5 ml/min; Est GFR (African American) 40.6 ml/min
[2020-09-24 02:04] LABS: ALC (manual) 0.95 K/uL (1.2-3.4); ANC (manual) 7.09 K/uL (1.4-6.5); Dohle Bodies 3+; Eosinophils # (manual) 0.32 K/uL (0-0.5); Eosinophils % (manual) 3.5 %; Lymphocytes # (manual) 0.95 K/uL (1.2-3.4); Lymphocytes % (manual) 10.4 %; Metamyelocytes # (manual) 0.08 K/uL (0-0); Metamyelocytes % (manual) 0.9 %; Monocytes # (manual) 0.71 K/uL (0.11-0.59); Monocytes % (manual) 7.8 %; Neutrophils # (manual) 7.09 K/uL (1.4-6.5); Neutrophils % (manual) 77.4 %
[2020-09-24 02:06] LABS: Albumin Globulin Ratio 0.5 (0.9-2); Bilirubin,Total 0.7 mg/dl (0.2-1); Globulin 3.3 gm/dl (2.5-4.0); Total Protein 4.9 gm/dl (6.4-8.2)
[2020-09-24] MEDS: DEXTROSE 5% 1,000 ML IV SCH ×2 (02:34→17:52)
--- NOTE | 2020-09-24 05:32 | Pharmacy Report ---
Pharmacy Abx Dose Short Note - Date of Service September 24, 2020 - Assessment & Plan Assessment 89 year old F admitted on 09/18/20 from [facility] secondary to nausea/vomiting/diarrhea. * PMHx significant for HTN, dementia, Covid-19 history * Found to have a UTI upon admission which grew E. coli that was resistant to Augmentin, Ampicillin, Unasyn and intermediated to Zosyn. She received 6 days of Rocephin to treat this infection. * This evening, patient was febrile x 1 at 38.3oC and she was hypotensive. Her renal fxn was significantly worse today. * Repeat cultures were drawn and patient was started on empiric Vancomycin and Zosyn. * If renal fxn continues to worsen, would recommend against the combination of Vancomycin and Zosyn. Plan Vancomycin * Loading Dose: 1250 mg (22 mg/kg) IV x 1 * Maintenance Dose: 750 mg (13 mg/kg) IV every 24 hours * Goal trough level: ~ 15 mcg/mL * No trough level was ordered at this time. If Vancomycin is to continue beyond 48 hours of therapy, will order a trough level. Zosyn * 3.375 g IV bolus over 30 minutes followed by 3.375 g IV every 8 hours for CrCl greater than 20 mL/min Pharmacy will continue to follow and will adjust dose/frequency as necessary. Thank you.
--- NOTE | 2020-09-24 07:03 | CT Scan Report ---
CT OF THE HEAD WITHOUT CONTRAST CLINICAL HISTORY: Altered mental status. COMPARISON STUDY: Head CT September 20, 2020. CT DOSE: 844.62 mGy.cm TECHNIQUE: Helical axial images of the head were obtained without IV contrast. Automated exposure con trol was utilized for the study. A dose lowering technique was utilized adhering to the principles o f ALARA. FINDINGS: No acute intracranial hemorrhage, midline shift or mass effect is present. The ventricular system is stable. Extensive atrophy and White matter small vessel disease is again noted. The basal c isterns are patent. No extra-axial collections are present. There are no findings to suggest acute du ral sinus thrombosis or acute territorial infarct. No significant calvarial abnormalities are present . IMPRESSION: No acute intracranial findings. No change in appearance of the brain. ACT 112: Negative or not required by law. Electronically signed by: Mick Serrano M.D. 09/24/2020 7:02 AM
[2020-09-24 08:24] LABS: Hematocrit (blood only) 32.3 % (37-47); Hemoglobin 10.3 g/dL (12.0-16.0); Mean Corpuscular Hemoglobin 31.9 pg (25-34); Mean Corpuscular Hgb Conc 31.9 g/dL (32-36); Mean Platelet Volume 10.2 fL (7.4-10.4); Platelet Count 174 K/uL (130-400); RDW Coefficient of Variation 14.7 % (11.5-14.5); RDW Standard Deviation 53.2 fL (36.4-46.3); Red Blood Count 3.23 M/uL (4.2-5.4); White Blood Count 9.68 K/uL (4.8-10.8)
[2020-09-24 08:41] LABS: BUN Creatinine Ratio 23.4 (10-20); Calcium 7.8 mg/dl (8.5-10.1); Est GFR (African American) 41.7 ml/min; Potassium 3.9 mmol/L (3.5-5.1)
[2020-09-24] MEDS: risperiDONE ODT 0.5 MG SOLTAB PO SCH ×2 (08:44→20:21)
[2020-09-24] MEDS: MAGNESIUM OXIDE 400 MG TAB PO SCH ×2 (08:44→20:19)
[2020-09-24] MEDS: MULTIVITAMIN TAB PO SCH (08:44)
[2020-09-24] MEDS: SUCRALFATE 1 GM TAB PO SCH ×4 (08:44→20:21)
[2020-09-24] MEDS: amLODIPine BESYLATE 5 MG TAB PO SCH (08:44)
[2020-09-24] MEDS: METOPROLOL SUCC 25MG EXT REL TAB PO SCH (08:44)
[2020-09-24] MEDS: PANTOprazole 40 MG in SYRINGE 0 ML IV SCH ×2 (08:44→22:47)
[2020-09-24] MEDS: ALBUMIN 25% 12.5 GM/50 ML VIAL IV SCH ×2 (10:43→11:29)
--- NOTE | 2020-09-24 10:49 | Hospitalist Progress Note ---
Date of Service September 24, 2020 Assessment & Plan (1) GI bleed: Plan: In 10-year-old female with history of dementia and atrial fibrillation on aspirin presenting with diarrhea and melena. Acute GI bleed, likely from Gastritis Hemoglobin 14 --> 11 Hemoglobin slightly decreased , occasional maroon stools- likely residual Hg around 9-10, cont. to monitor Status post EGD: Positive for medium sized hiatal hernia, gastritis, nonobstructing Schatzi's ring Biopsy result pending Protonix IV--> 40 mg PO twice daily x4 weeks, then daily Sucralfate 1 g p.o. 4 times daily x2 weeks GI recommending decision for repeat EGD in 8 to 12 weeks to be determined by PCP given advanced age Aspiration? 09/23/2020 - AM observed by nursing staff that patient had difficulty swallowing, and sounded gurgly She was suctioned by nursing staff Speech therapist was contacted, and speech eval obtained at bedside recommend n.p.o. Contacted pt's granddaughter, she says "no" to any feeding tubes Asked her about palliative medicine consultation She is especially concerned about her psychiatric medications, says that this has been been managed and sometimes changed without psychiatry notice Reports that pt had a catatonic episode in May, and so psychiatry consultation requested Psych consulted - Hold risperidone for now. Hold Remeron for now. No need for urgent psychiatric medication administration. Continue to search for and treat sources of infection Continue to correct patient's electrolytes, there are numerous abnormalities that may be contributing to her poor mental state including hypocalcemia, hypernatremia. Consider palliative consult Palliative medicine consulted - appreciate their help Add glycopyrrolate to reduce secretions as she is aspiration risk and unable to clear her secretions Fever In the evening of September 23 patient developed fever Blood cultures, urine, stool cultx, c. diff, chest x-ray obtained Antibiotics changed to Zosyn from ceftriaxone for poss. aspiration, received dose of vancomycin No other fever Blood cultx - NGTD UA c/w UTI U cultx - pending Stool cultx - pending CXR 1. Interstitial thickening suggestive of mild pulmonary edema. 2. Mild left lower lung opacities. This could reflect an infectious process or atelectasis. Diarrhea Likely secondary to #1 C. difficile negative Stool cultures negative resolved Stool cultx repeated and pending d/t fever E. coli UTI Urine culture E. coli Ceftriaxone day #5/ - finished (now antibiotics broadened) Follow repeat UA, U cultx Hypertension PRN Hydralazine Added Amlodipine 10 mg p.o. daily BP was improving Now BP low Chronic A. fib No anticoagulation secondary to bleeding Usually on metoprolol p.o. and aspirin Continue usual metoprolol 25 mg p.o. daily (now NPO) Aspirin on hold secondary to GI bleed discuss with GI re: timing of Aspirin resumption Dementia Patient lethargic when unable to take Risperidone per [facility] staff, patient is mostly awake but can be lethargic at time Always assist with feeding --Mental status improving - Now npo d/t high risk of aspiration Hypernatremia Na 141--> 150 D5W at 60cc/hr PRP daily Now Na 146 -147 Disposition Not clear at this time Previous plan was Return to [facility] facility when medically stable, Na normalizes Follow-up with PCP in 1 week Admission and Anticipated Discharge Date Admission Date: September 18, 2020 Subjective Pt seen in follow-up for GI bleed, UTI, ?aspiration Patient is sitting up in bed, in no acute distress sleeping soundly however able to awake and she answers a few simple questions appropriately, she gives mostly one-word answers Yesterday noted significant difficulty with swallowing Speech therapist evaluated the patient and recommended n.p.o. as she is very high risk for aspiration Currently not in distress, no signs of pain She also denies any pain or discomfort Yesterday updated granddaughter over the phone, about current status, per granddaughter no feeding tubes She is worried that it could be caused by her psychiatric medications, requested psychiatry eval, reports that patient had a "catatonic episode in May" Palliative medicine also consulted Review of Systems Review of Systems: Unable to obtain full review of system due to cognitive status, however patient denies any pain or discomfort Physical Exam Physical Exam: General- elderly F, not in distress, however difficult to respond, only answers in 1 word answers Eyes- anicteric Neck- no JVD Lungs- + mild rhonchi/ +upper breath sounds Heart- normal rate, regular rhythm; no murmurs Abdomen- normal bowel sounds, nondistended, soft, nontender Extremities- no pretibial edema, no calf tenderness Neuro-responds only after little prompting, only answers very few questions, gives 1 word answers Skin- warm & dry Results & Data Results & Data ([facility]) Vital Signs (Past 12 Hours) Vital Signs Temp Pulse Pulse Resp BP BP Pulse Ox 09/24/20 07:57 36.7 C 89 20 90/54 L 97 09/24/20 07:18 88 09/24/20 06:41 89 16 132/63 09/24/20 05:56 91 H 18 120/70 110/72 09/24/20 04:43 74 16 88/52 L 80/42 L 94 09/24/20 03:07 37.0 C 82 15 88/50 L 90/52 L 97 09/24/20 01:40 75 15 121/71 110/75 99 09/23/20 23:57 88 09/23/20 23:10 89 95/65 L 09/23/20 22:56 37.5 C 92 H 16 99/63 L 94 Laboratory Results 09/24/20 09/24/20 09/24/20 Range/Units 07:35 07:35 01:27 WBC 9.68 (4.8-10.8) K/uL RBC 3.23 L (4.2-5.4) M/uL Hgb 10.3 L (12.0-16.0) g/dL Hct 32.3 L (37-47) % MCV 100.0 (80-100) fL MCH 31.9 (25-34) pg MCHC 31.9 L (32-36) g/dL RDW Std Deviation 53.2 H (36.4-46.3) fL RDW Coeff of Lissa 14.7 H (11.5-14.5) % Plt Count 174 (130-400) K/uL MPV 10.2 (7.4-10.4) fL Neutrophils % (Manual) % Lymphocytes % (Manual) % Monocytes % (Manual) % Eosinophils % (Manual) % Metamyelocytes % (Man) % Neutrophils # (Manual) (1.4-6.5) K/uL Total Absolute Neuts (1.4-6.5) K/uL Lymphocytes # (Manual) (1.2-3.4) K/uL Total Abs Lymphocytes (1.2-3.4) K/uL Monocytes # (Manual) (0.11-0.59) K/uL Eosinophils # (Manual) (0-0.5) K/uL Metamyelocytes # (Man) (0-0) K/uL Dohle Bodies ABG pH (7.35-7.45) ABG pCO2 (35-46) mmHg ABG pO2 (80-95) mmHg ABG HCO3 (19-24) mmol/L ABG O2 Saturation (90-95) % ABG Base Excess (-9-1.8) mEq/L Huan Test (Pos) Barometric Pressure mm/Hg Oxygen Given Sodium 147 H (136-145) mmol/L Potassium 3.9 (3.5-5.1) mmol/L Chloride 120 H (98-107) mmol/L Carbon Dioxide 20 L (21-32) mmol/L Anion Gap 6.0 (3-11) BUN 31 H (7-18) mg/dl Creatinine 1.31 H (0.6-1.2) mg/dl Est Cr Clr Drug Dosing 23.0 ml/min Est GFR ( Amer) 41.7 ml/min Est GFR (Non-Af Amer) 36.0 ml/min BUN/Creatinine Ratio 23.4 H (10-20) Glucose 116 H (70-99) mg/dl Lactate (0.4-2.0) mmol/L Calcium 7.8 L (8.5-10.1) mg/dl Total Bilirubin (0.2-1) mg/dl AST (15-37) U/L ALT (12-78) U/L Alkaline Phosphatase (45-117) U/L Ammonia 17.0 (11-32) umol/L Total Protein (6.4-8.2) gm/dl Albumin (3.4-5.0) gm/dl Globulin (2.5-4.0) gm/dl Albumin/Globulin Ratio (0.9-2) Urine Color Urine Appearance (Clear) Urine pH (4.5-7.5) Ur Specific [place] (1.000-1.030) Urine Protein (Negative) Urine Glucose (UA) (Negative) Urine Ketones (Negative) Urine Blood (Negative) Urine Nitrite (Negative) Urine Bilirubin (Negative) Urine Urobilinogen (Negative) Ur Leukocyte Esterase (Negative) Urine WBC (Auto) (0-5) /hpf Urine RBC (Auto) (0-4) /hpf U Hyaline Cast (Auto) (0-5) /lpf U Epithel Cells (Auto) (0-5) /lpf Urine Bacteria (Auto) (Negative) Ur Renal Epithelial Cell Urine Mucus (None Prsent) Urine Yeast Stl C. diff Tox B Gene (Neg) 09/24/20 09/24/20 09/24/20 Range/Units 01:27 01:27 01:27 WBC 9.16 (4.8-10.8) K/uL RBC 3.01 L (4.2-5.4) M/uL Hgb 9.4 L (12.0-16.0) g/dL Hct 29.7 L (37-47) % MCV 98.7 (80-100) fL MCH 31.2 (25-34) pg MCHC 31.6 L (32-36) g/dL RDW Std Deviation 52.1 H (36.4-46.3) fL RDW Coeff of Lissa 14.5 (11.5-14.5) % Plt Count 178 (130-400) K/uL MPV 9.7 (7.4-10.4) fL Neutrophils % (Manual) 77.4 % Lymphocytes % (Manual) 10.4 % Monocytes % (Manual) 7.8 % Eosinophils % (Manual) 3.5 % Metamyelocytes % (Man) 0.9 % Neutrophils # (Manual) 7.09 H (1.4-6.5) K/uL Total Absolute Neuts 7.09 H (1.4-6.5) K/uL Lymphocytes # (Manual) 0.95 L (1.2-3.4) K/uL Total Abs Lymphocytes 0.95 L (1.2-3.4) K/uL Monocytes # (Manual) 0.71 H (0.11-0.59) K/uL Eosinophils # (Manual) 0.32 (0-0.5) K/uL Metamyelocytes # (Man) 0.08 H (0-0) K/uL Dohle Bodies 3+ ABG pH 7.40 (7.35-7.45) ABG pCO2 32 L (35-46) mmHg ABG pO2 110 H (80-95) mmHg ABG HCO3 20 (19-24) mmol/L ABG O2 Saturation 98.2 H (90-95) % ABG Base Excess -4.5 (-9-1.8) mEq/L Huan Test POS (Pos) Barometric Pressure 735.1 mm/Hg Oxygen Given 2 L Sodium 146 H (136-145) mmol/L Potassium 4.0 D (3.5-5.1) mmol/L Chloride 121 H (98-107) mmol/L Carbon Dioxide 23 (21-32) mmol/L Anion Gap 2.0 L (3-11) BUN 30 H (7-18) mg/dl Creatinine 1.34 H D (0.6-1.2) mg/dl Est Cr Clr Drug Dosing 22.5 ml/min Est GFR ( Amer) 40.6 ml/min Est GFR (Non-Af Amer) 35.0 ml/min BUN/Creatinine Ratio 22.4 H (10-20) Glucose 117 H (70-99) mg/dl Lactate (0.4-2.0) mmol/L Calcium 7.6 L (8.5-10.1) mg/dl Total Bilirubin 0.7 (0.2-1) mg/dl AST 44 H (15-37) U/L ALT 29 (12-78) U/L Alkaline Phosphatase 89 (45-117) U/L Ammonia (11-32) umol/L Total Protein 4.9 L (6.4-8.2) gm/dl Albumin 1.6 L (3.4-5.0) gm/dl Globulin 3.3 (2.5-4.0) gm/dl Albumin/Globulin Ratio 0.5 L (0.9-2) Urine Color Urine Appearance (Clear) Urine pH (4.5-7.5) Ur Specific [place] (1.000-1.030) Urine Protein (Negative) Urine Glucose (UA) (Negative) Urine Ketones (Negative) Urine Blood (Negative) Urine Nitrite (Negative) Urine Bilirubin (Negative) Urine Urobilinogen (Negative) Ur Leukocyte Esterase (Negative) Urine WBC (Auto) (0-5) /hpf Urine RBC (Auto) (0-4) /hpf U Hyaline Cast (Auto) (0-5) /lpf U Epithel Cells (Auto) (0-5) /lpf Urine Bacteria (Auto) (Negative) Ur Renal Epithelial Cell Urine Mucus (None Prsent) Urine Yeast Stl C. diff Tox B Gene (Neg) 09/24/20 09/24/20 09/23/20 Range/Units 01:27 01:00 Unknown WBC (4.8-10.8) K/uL RBC (4.2-5.4) M/uL Hgb (12.0-16.0) g/dL Hct (37-47) % MCV (80-100) fL MCH (25-34) pg MCHC (32-36) g/dL RDW Std Deviation (36.4-46.3) fL RDW Coeff of Lissa (11.5-14.5) % Plt Count (130-400) K/uL MPV (7.4-10.4) fL Neutrophils % (Manual) % Lymphocytes % (Manual) % Monocytes % (Manual) % Eosinophils % (Manual) % Metamyelocytes % (Man) % Neutrophils # (Manual) (1.4-6.5) K/uL Total Absolute Neuts (1.4-6.5) K/uL Lymphocytes # (Manual) (1.2-3.4) K/uL Total Abs Lymphocytes (1.2-3.4) K/uL Monocytes # (Manual) (0.11-0.59) K/uL Eosinophils # (Manual) (0-0.5) K/uL Metamyelocytes # (Man) (0-0) K/uL Dohle Bodies ABG pH (7.35-7.45) ABG pCO2 (35-46) mmHg ABG pO2 (80-95) mmHg ABG HCO3 (19-24) mmol/L ABG O2 Saturation (90-95) % ABG Base Excess (-9-1.8) mEq/L Huan Test (Pos) Barometric Pressure mm/Hg Oxygen Given Sodium (136-145) mmol/L Potassium (3.5-5.1) mmol/L Chloride (98-107) mmol/L Carbon Dioxide (21-32) mmol/L Anion Gap (3-11) BUN (7-18) mg/dl Creatinine (0.6-1.2) mg/dl Est Cr Clr Drug Dosing ml/min Est GFR ( Amer) ml/min Est GFR (Non-Af Amer) ml/min BUN/Creatinine Ratio (10-20) Glucose (70-99) mg/dl Lactate 1.1 (0.4-2.0) mmol/L Calcium (8.5-10.1) mg/dl Total Bilirubin (0.2-1) mg/dl AST (15-37) U/L ALT (12-78) U/L Alkaline Phosphatase (45-117) U/L Ammonia (11-32) umol/L Total Protein (6.4-8.2) gm/dl Albumin (3.4-5.0) gm/dl Globulin (2.5-4.0) gm/dl Albumin/Globulin Ratio (0.9-2) Urine Color Dark Yellow Urine Appearance Clear (Clear) Urine pH 6.0 (4.5-7.5) Ur Specific [place] 1.034 H (1.000-1.030) Urine Protein 2+ H (Negative) Urine Glucose (UA) Negative (Negative) Urine Ketones Trace H (Negative) Urine Blood Trace H (Negative) Urine Nitrite Positive A (Negative) Urine Bilirubin 1+ H (Negative) Urine Urobilinogen Negative (Negative) Ur Leukocyte Esterase Trace H (Negative) Urine WBC (Auto) 1-5 (0-5) /hpf Urine RBC (Auto) 0-4 (0-4) /hpf U Hyaline Cast (Auto) 10-30 H (0-5) /lpf U Epithel Cells (Auto) >30 H (0-5) /lpf Urine Bacteria (Auto) 1+ H (Negative) Ur Renal Epithelial Cell Not Reportable Urine Mucus Present A (None Prsent) Urine Yeast Not Reportable Stl C. diff Tox B Gene Negative Cdiff Gene (Neg) Medications Administered Current Inpatient Medications Acetaminophen (Acetaminophen 325 Mg Tab) 650 mg PO Q4H PRN PRN Reason: pain/fever Stop: 10/18/20 02:36 Acetaminophen (Acetaminophen 1000 Mg/100 Ml Iv) 1,000 mg IV Q8H PRN PRN Reason: pain, fever, discomfort Stop: 09/26/20 19:17 Last Admin: 09/23/20 20:05 Dose: 1,000 mg Documented by: Amlodipine Besylate (A[facility]odipine Besylate 5 Mg Tab) [facility] Stop: 10/21/20 08:59 Last Admin: 09/24/20 08:44 Dose: Not Given Documented by: Hydralazine HCl (Hydralazine Hcl 20 Mg/Ml Vial) 2.5 mg IV Q6H PRN PRN Reason: hypertension Stop: 10/18/20 08:44 Last Admin: 09/21/20 04:30 Dose: 2.5 mg Documented by: Dextrose (D5w) 1,000 mls @ 60 mls/hr IV .[id number] [facility] Stop: 10/22/20 15:29 Last Admin: 09/24/20 02:34 Dose: 60 mls/hr Documented by: Pantoprazole Sodium 40 mg/ (Syringe) 10 mls @ 5 mls/min IV BID [facility] Stop: 10/23/20 20:59 Last Admin: 09/24/20 08:44 Dose: Not Given Documented by: Piperacillin Sod/Tazobactam (Sod 3.375 gm/ Dextrose) 115 mls @ 28.75 mls/hr IV Q8H [facility]; Protocol Stop: 09/26/20 01:59 Last Admin: 09/24/20 09:43 Dose: 28.8 mls/hr Documented by: Vancomycin HCl 750 mg/ Sodium (Chloride) 265 mls @ 200 mls/hr IV UD [facility] Stop: 09/25/20 02:20 Albumin Human (Albumin 25%) 12.5 gm in 50 mls @ 50 mls/hr IV Q1H [facility] Stop: 09/24/20 12:44 Last Admin: 09/24/20 10:43 Dose: 50 mls/hr Documented by: Magnesium Oxide (Magnesium Oxide 400 Mg Tab) 400 mg PO BID [facility] Stop: 10/20/20 20:59 Last Admin: 09/24/20 08:44 Dose: Not Given Documented by: Melatonin (Melatonin 3 Mg Tab) 3 mg PO HS [facility] Stop: 10/18/20 20:59 Last Admin: 09/21/20 20:50 Dose: Not Given Documented by: Metoprolol Succinate (Metoprolol Succ 25mg Ext Rel Tab) 25 mg PO QAM [facility] Stop: 10/20/20 13:44 Last Admin: 09/24/20 08:44 Dose: Not Given Documented by: Metoprolol Tartrate (Metoprolol Tartrate 1 Mg/Ml Vial) 2.5 mg IV Q6 PRN PRN Reason: tachycardia Stop: 10/18/20 11:29 Last Admin: 09/22/20 23:52 Dose: 2.5 mg Documented by: Miconazole Nitrate (Miconazole Nitrate Powder 43 Gm) 1 appln EXT PRN PRN PRN Reason: Affected Skin Folds Stop: 10/20/20 16:41 Mirtazapine (Mirtazapine Soltab 15 Mg) 15 mg PO HS [facility] Stop: 10/18/20 20:59 Last Admin: 09/23/20 22:02 Dose: Not Given Documented by: Miscellaneous Information (Piperacill/Tazobac Consult Active) 1 ea N/A UD PRN PRN Reason: Consult Stop: 10/23/20 19:42 Miscellaneous Information (Vancomycin Consult Active) 1 ea N/A UD PRN PRN Reason: Consult Stop: 10/24/20 01:11 Multivitamins (Multivitamin Tab) 1 tab PO QAM [facility] Stop: 10/18/20 08:59 Last Admin: 09/24/20 08:44 Dose: Not Given Documented by: Ondansetron HCl (Ondansetron Inj 2 Mg/Ml 2 Ml Vial) 4 mg IV Q6H PRN PRN Reason: Nausea Stop: 10/18/20 02:36 Risperidone (Risperidone Odt 0.5 Mg Soltab) 0.5 mg PO BID [facility] Stop: 10/20/20 12:29 Last Admin: 09/24/20 08:44 Dose: Not Given Documented by: Sucralfate (Sucralfate 1 Gm Tab) 1 gm PO QID [facility] Stop: 10/18/20 16:59 Last Admin: 09/24/20 08:44 Dose: Not Given Documented by:
[2020-09-24] MEDS ORDERED: CEFEPIME CONSULT ACTIVE PRN (12:10)
[2020-09-24] MEDS: metroNIDAZOLE 500 MG/100 ML BAG IV SCH ×2 (12:54→22:46)
[2020-09-24] MEDS ORDERED: CEFEPIME 2,000 MG in SYRINGE 0 ML IV SCH (13:00)
[2020-09-24] MEDS ORDERED: GLYCOPYRROLATE 0.2 MG/ML VIAL IV PRN (14:19)
--- NOTE | 2020-09-24 14:19 | Palliative Care Consultation ---
Date of Consultation September 24, 2020 Assessment & Plan (1) Palliative care encounter: Mrs. Max is not able to participate in goals of care discussion. I did reach out to her granddaughter, Maya, who is her POA several times but was unable to connect with her. Palliative care will follow. (2) Increased tracheal secretions: Add glycopyrrolate to reduce secretions as she is aspiration risk and unable to clear her secretions (3) GI bleed: (4) Diarrhea: (5) Anxiety with depression: (6) Dementia: Dementia behavioral disturbance: without behavioral disturbance Dementia type: unspecified type Qualified Code(s): F03.90 - Unspecified dementia without behavioral disturbance (7) AMS (altered mental status): History of Present Illness Reason for Consultation: goals of care Requesting Physician: Dr. Calixto Attending Physician: Sky Calixto MD History of Present Illness 89 yo lady with dementia who resides at [facility]. She has a history of covid pneumonia and heart failure. She has admitted with nausea, vomiting and diarrhea and mental status change. She was found to have UTI and is currently on cefipime. During her stay she is noted to have maroon stools. Her hemoglobin has been stable but she has had hypotension. She did have an EGD which showed gastritis and is on protonix. Unfortunately it appears that she has also aspirated. She is lethargic and unable to provide any history. Per RN, her baseline is that she is somewhat verbal. Allergies Allergy/AdvReac Type Severity Reaction Status Date / Time clonidine Allergy Unknown Unknown Verified 09/20/20 13:40 hydrochlorothiazide Allergy Unknown Unknown Verified 09/20/20 13:40 nitrofurantoin Allergy Unknown Unknown Verified 09/20/20 13:40 Sulfa (Sulfonamide Allergy Unknown Unknown Verified 09/20/20 13:40 Antibiotics) milk AdvReac Mild Gastrointestinal Verified 09/20/20 13:40 Upset Home Medications Medication Instructions Recorded Confirmed Type aspirin 81 mg tablet,delayed 81 mg PO QAM 08/27/19 09/17/20 History release (Aspirin Low Dose) metoprolol succinate 25 mg 25 mg PO QAM 08/27/19 09/17/20 History tablet,extended release 24 hr risperidone 0.5 mg tablet 0.5 mg PO BID 08/27/19 09/17/20 History acetaminophen 325 mg tablet 650 mg PO Q8H PRN MDD 3 GMS 09/09/20 07/15/21 History APAP/24 HOURS multivitamin (Daily-Shaunna) 1 tab PO QAM 11/13/19 09/17/20 History melatonin 3 mg tablet 3 mg PO HS 04/09/20 09/17/20 History furosemide 20 mg tablet 20 mg PO MOWEFR 07/30/20 09/17/20 History lorazepam 0.5 mg tablet 0.5 mg PO BID 09/05/20 09/17/20 History mirtazapine 15 mg disintegrating 15 mg PO HS 09/05/20 09/17/20 History tablet Patient History Medical History Anxiety with depression Dementia Fall HTN (hypertension) Social History Smoking Status: Never smoker Hx Substance Use: No Preferred Language: Syriac Communication Ability: Unable Outside [employer] Required: No Beliefs That Will Affect Care: None Current Living Situation: Personal Care Facility Feels Safe at Home: Yes Assistive Devices: Denture - Upper, Denture - Lower and Oxygen - Continuous Review of Systems Review of Systems: Unobtainable due to cognitive status and Unobtainable due to reduced consciousness [place] Symptom Assessment Scale PainAD 1/3 Dyspnea by observation 03/08 Palliative Performance Score 20% Physical Exam Constitutional: + ill appearing furrowed brow Respiratory: + labored breathing and + uses accessory muscles audible rhonchi Gastrointestinal (Abdomen): Percussion/Palpation: + abdomen tender Neurologic: + not awake Speech / Cognition: + abnormal cognition Results & Data ([facility]) Vital Signs (Past 12 Hours) Vital Signs Temp Pulse Pulse Resp BP BP Pulse Ox 09/24/20 11:58 97.9 F 90 20 112/67 97 09/24/20 11:55 97.9 F 88 20 103/68 97 09/24/20 11:30 97.9 F 100 H 20 105/67 97 09/24/20 11:25 97.9 F 91 H 20 115/75 98 09/24/20 10:48 94 H 20 136/65 95 09/24/20 07:57 98.1 F 89 20 90/54 L 97 09/24/20 07:18 88 09/24/20 06:41 89 16 132/63 09/24/20 05:56 91 H 18 120/70 110/72 09/24/20 04:43 74 16 88/52 L 80/42 L 94 09/24/20 03:07 98.6 F 82 15 88/50 L 90/52 L 97 09/24/20 01:40 75 15 121/71 110/75 99 PG Care Time/CCT Total # of Minutes Spent Total Time Spent with Patient: Total time spent is greater than 50% in coordination of care (as documented) at patient's floor/unit and/or counseling patient: Coding Level of Care Code 67363 Initial Inpt Care Lvl 2 Diagnoses Palliative care encounter Z51.5 Increased tracheal secretions J39.8 GI bleed K92.2 Diarrhea R19.7 Anxiety with depression F41.8 Dementia F03.90 Dementia behavioral disturbance: without behavioral disturbance Dementia type: unspecified type AMS (altered mental status) R41.82
--- NOTE | 2020-09-24 14:53 | Psychiatric Consultation ---
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 Patient recently was treated for UTI infection and is likely still delirious from that episode. Looking at past psychiatric records there is a history of catatonia which appears to have been responsive to Ativan. Sap Senior Developer believes it is unlikely that this is catatonia responsible for patient's current clinical picture. Furthermore her standing medications of risperidone and Remeron seem unnecessary given her current state. In case patient were to become agitated we can substitute risperidone for IV Haldol, although there has been no reported agitation since being in the hospital. Ativan can be switched to IV formulation as opposed to p.o., although the utility of this is questionable since patient is currently nonverbal and appears obtunded. Recommendations: Hold risperidone for now. Hold Remeron for now. No need for urgent psychiatric medication administration. Continue to search for and treat sources of infection Continue to correct patient's electrolytes, there are numerous abnormalities that may be contributing to her poor mental state including hypocalcemia, hypernatremia. Consider palliative consult Psych History Identifying Data 89 year old female who presented with severe infection now currently nonverbal and unable to swallow PO medications. Psychiatry consulted for medication recommendations Chief Complaint Patient non-verbal currently History of Present Illness Hpi as per psychiatric liaison "Received call from Dr. Calixto earlier in shift regarding reason for consult for patient. Pt. currently having difficulty swallowing at this time. She is unable to take her PO medications at this time without difficulty. She has been consulted for medication recommendations and is prescribed Remeron, and Risperdal as well as other PO medications. It was recommended to get updated list from [facility] or [facility] to confirm medications. It was also reported that Pt's granddaughter is person of contact. Patient is an 89 y/o female from [facility]. She was admitted for diarrhea, a UTI and having a GI work-up. Patient is unable to engage with meaningful conversation. Patient was consulted for catatonia and did have a previous work-up for catatonia on 05/25/[address] Lin Valladares. Patient has a past medical history of Afib, dementia and covid + on 02/2020. Current psychiatric medications are risperdal 0.5 mg BID, Remeron 15 mg HS, and ativan 0.5 mg bid. patient is currently NPO" Upon evaluation patient is nonverbal. Per nursing report patient has been calm and cooperative without any episodes of agitation or aggression. She continues to not be able to tolerate p.o. medication at this time. Nursing is reporting no change in behavior since having stopped psychiatric medications. Allergies Allergy/AdvReac Type Severity Reaction Status Date / Time clonidine Allergy Unknown Unknown Verified 09/20/20 13:40 hydrochlorothiazide Allergy Unknown Unknown Verified 09/20/20 13:40 nitrofurantoin Allergy Unknown Unknown Verified 09/20/20 13:40 Sulfa (Sulfonamide Allergy Unknown Unknown Verified 09/20/20 13:40 Antibiotics) milk AdvReac Mild Gastrointestinal Verified 09/20/20 13:40 Upset Home Medications Medication Instructions Recorded Confirmed Type aspirin 81 mg tablet,delayed 81 mg PO QAM 08/27/19 09/17/20 History release (Aspirin Low Dose) metoprolol succinate 25 mg 25 mg PO QAM 08/27/19 09/17/20 History tablet,extended release 24 hr risperidone 0.5 mg tablet 0.5 mg PO BID 08/27/19 09/17/20 History acetaminophen 325 mg tablet 650 mg PO Q8H PRN MDD 3 GMS 11/13/19 09/17/20 History APAP/24 HOURS multivitamin (Daily-Shaunna) 1 tab PO QAM 11/13/19 09/17/20 History melatonin 3 mg tablet 3 mg PO HS 04/09/20 09/17/20 History furosemide 20 mg tablet 20 mg PO MOWEFR 07/30/20 09/17/20 History lorazepam 0.5 mg tablet 0.5 mg PO BID 09/05/20 09/17/20 History mirtazapine 15 mg disintegrating 15 mg PO HS 09/05/20 09/17/20 History tablet Personal History Beliefs That Will Affect Care: None Patient History Medical History Anxiety with depression Dementia Fall HTN (hypertension) Social History Smoking Status: Never smoker Hx Substance Use: No Preferred Language: Azeri Communication Ability: Unable Military Technician Required: No Beliefs That Will Affect Care: None Current Living Situation: Personal Care Facility Feels Safe at Home: Yes Assistive Devices: Denture - Upper, Denture - Lower and Oxygen - Continuous Physical Exam Psychiatric: Orientation: + not alert and + not oriented to place cachectic appearing Eye Contact: + poor eye contact Motor Behavior: + psychomotor retardation Speech: + mute Cognition: + attention not intact Vital Signs (Past 24 Hours): Last Vital Signs Temp 36.6 C 09/24/20 11:58 Pulse 90 09/24/20 11:58 Resp 20 09/24/20 11:58 BP 112/67 09/24/20 11:58 Pulse Ox 97 09/24/20 11:58 Review of Systems Unobtainable due to reduced consciousness Results & Data (PSY) Medications Administered Acetaminophen (Acetaminophen 1000 Mg/100 Ml Iv) 1,000 mg IV Q8H PRN PRN Reason: pain, fever, discomfort Stop: 09/26/20 19:17 Last Admin: 09/23/20 20:05 Dose: 1,000 mg Documented by: [id number] Amlodipine Besylate (Amlodipine Besylate 5 Mg Tab) 5 mg PO QAM [facility] Stop: 10/21/20 08:59 Last Admin: 09/24/20 08:44 Dose: Not Given Documented by: [id number] Admin: 09/23/20 08:33 Dose: 5 mg Documented by: [id number] Admin: 09/22/20 08:12 Dose: 5 mg Documented by: [id number] Admin: 09/21/20 10:10 Dose: 5 mg Documented by: [id number] Hydralazine HCl (Hydralazine Hcl 20 Mg/Ml Vial) 2.5 mg IV Q6H PRN PRN Reason: hypertension Stop: 10/18/20 08:44 Last Admin: 09/21/20 04:30 Dose: 2.5 mg Documented by: [id number] Admin: 09/20/20 12:56 Dose: 2.5 mg Documented by: [id number] Admin: 09/20/20 07:30 Dose: 2.5 mg Documented by: [id number] Admin: 09/20/20 04:04 Dose: 2.5 mg Documented by: [id number] Admin: 09/19/20 16:17 Dose: 2.5 mg Documented by: [id number] Admin: 09/19/20 07:36 Dose: 2.5 mg Documented by: [id number] Dextrose (D5w) 1,000 mls @ 60 mls/hr IV .[id number] [facility] Stop: 10/22/20 15:29 Last Admin: 09/24/20 02:34 Dose: 60 mls/hr Documented by: [id number] Infusion: 09/23/20 07:41 Dose: 0 mls/hr Documented by: [id number] Admin: 09/22/20 15:57 Dose: 60 mls/hr Documented by: [id number] Pantoprazole Sodium 40 mg/ (Syringe) 10 mls @ 5 mls/min IV BID [facility] Stop: 10/23/20 20:59 Last Admin: 09/24/20 08:44 Dose: Not Given Documented by: [id number] Admin: 09/23/20 22:13 Dose: 5 mls/min Documented by: [id number] Cefepime HCl 2,000 mg/ Syringe 20 mls @ 5 mls/min IV Q24H [facility]; Protocol Stop: 09/26/20 12:59 Last Admin: 09/24/20 12:54 Dose: 5 mls/min Documented by: [id number] Metronidazole (Flagyl) 500 mg in 100 mls @ 100 mls/hr IV Q8 [facility] Stop: 09/26/20 13:59 Last Infusion: 09/24/20 13:54 Dose: 0 mls/hr Documented by: [id number] Admin: 09/24/20 12:54 Dose: 100 mls/hr Documented by: [id number] Magnesium Oxide (Magnesium Oxide 400 Mg Tab) 400 mg PO BID [facility] Stop: 10/20/20 20:59 Last Admin: 09/24/20 08:44 Dose: Not Given Documented by: [id number] Admin: 09/23/20 22:03 Dose: Not Given Documented by: [id number] Admin: 09/23/20 08:33 Dose: 400 mg Documented by: [id number] Admin: 09/22/20 19:44 Dose: 400 mg Documented by: [id number] Admin: 09/22/20 08:13 Dose: 400 mg Documented by: [id number] Admin: 09/21/20 20:50 Dose: Not Given Documented by: [id number] Admin: 09/21/20 10:10 Dose: 400 mg Documented by: [id number] Admin: 09/20/20 21:53 Dose: 400 mg Documented by: [id number] Melatonin (Melatonin 3 Mg Tab) 3 mg PO HS MINI Stop: 10/18/20 20:59 Last Admin: 09/21/20 20:50 Dose: Not Given Documented by: [id number] Admin: 09/20/20 21:53 Dose: 3 mg Documented by: [id number] Admin: 09/19/20 20:31 Dose: Not Given Documented by: [id number] Admin: 09/18/20 20:23 Dose: 3 mg Documented by: [id number] Metoprolol Succinate (Metoprolol Succ 25mg Ext Rel Tab) 25 mg PO QAM [facility] Stop: 10/20/20 13:44 Last Admin: 09/24/20 08:44 Dose: Not Given Documented by: [id number] Admin: 09/23/20 08:33 Dose: 25 mg Documented by: [id number] Admin: 09/22/20 08:12 Dose: 25 mg Documented by: [id number] Admin: 09/21/20 10:10 Dose: 25 mg Documented by: [id number] Admin: 09/20/20 14:37 Dose: 25 mg Documented by: [id number] Metoprolol Tartrate (Metoprolol Tartrate 1 Mg/Ml Vial) 2.5 mg IV Q6 PRN PRN Reason: tachycardia Stop: 10/18/20 11:29 Last Admin: 09/22/20 23:52 Dose: 2.5 mg Documented by: [id number] Admin: 09/21/20 17:08 Dose: 2.5 mg Documented by: [id number] Admin: 09/21/20 01:07 Dose: 2.5 mg Documented by: [id number] Mirtazapine (Mirtazapine Soltab 15 Mg) 15 mg PO [facility] Stop: 10/18/20 20:59 Last Admin: 09/23/20 22:02 Dose: Not Given Documented by: [id number] Admin: 09/22/20 19:44 Dose: 15 mg Documented by: [id number] Admin: 09/21/20 20:49 Dose: Not Given Documented by: [id number] Admin: 09/20/20 21:50 Dose: 15 mg Documented by: [id number] Admin: 09/19/20 20:31 Dose: Not Given Documented by: [id number] Admin: 09/18/20 20:23 Dose: 15 mg Documented by: [id number] Multivitamins (Multivitamin Tab) 1 [facility] [place] Stop: 10/18/20 08:59 Last Admin: 09/24/20 08:44 Dose: Not Given Documented by: [id number] Admin: 09/23/20 08:33 Dose: 1 tab Documented by: [id number] Admin: 09/22/20 08:13 Dose: 1 tab Documented by: [id number] Admin: 09/21/20 10:10 Dose: 1 tab Documented by: [id number] Admin: 09/20/20 08:09 Dose: Not Given Documented by: [id number] Admin: 09/19/20 10:13 Dose: Not Given Documented by: [id number] Admin: 09/18/20 08:17 Dose: Not Given Documented by: [id number] Risperidone (Risperidone Odt 0.5 Mg Soltab) 0.5 mg PO BID [facility] Stop: 10/20/20 12:29 Last Admin: 09/24/20 08:44 Dose: Not Given Documented by: [id number] Admin: 09/23/20 22:03 Dose: Not Given Documented by: [id number] Admin: 09/23/20 08:33 Dose: 0.5 mg Documented by: [id number] Admin: 09/22/20 19:44 Dose: 0.5 mg Documented by: [id number] Admin: 09/22/20 08:13 Dose: 0.5 mg Documented by: [id number] Admin: 09/21/20 20:49 Dose: Not Given Documented by: [id number] Admin: 09/21/20 10:11 Dose: 0.5 mg Documented by: [id number] Admin: 09/20/20 21:52 Dose: 0.5 mg Documented by: [id number] Admin: 09/20/20 12:37 Dose: 0.5 mg Documented by: [id number] Sucralfate (Sucralfate 1 Gm Tab) 1 gm PO QID [facility] Stop: 10/18/20 16:59 Last Admin: 09/24/20 12:36 Dose: Not Given Documented by: [id number] Admin: 09/24/20 08:44 Dose: Not Given Documented by: [id number] Admin: 09/23/20 22:03 Dose: Not Given Documented by: [id number] Admin: 09/23/20 16:35 Dose: Not Given Documented by: [id number] Admin: 09/23/20 13:19 Dose: Not Given Documented by: [id number] Admin: 09/23/20 08:33 Dose: 1 gm Documented by: [id number] Admin: 09/22/20 19:44 Dose: 1 gm Documented by: [id number] Admin: 09/22/20 17:17 Dose: Not Given Documented by: [id number] Admin: 09/22/20 13:03 Dose: 1 gm Documented by: [id number] Admin: 09/22/20 08:12 Dose: 1 gm Documented by: [id number] Admin: 09/21/20 20:49 Dose: Not Given Documented by: [id number] Admin: 09/21/20 16:14 Dose: 1 gm Documented by: [id number] Admin: 09/21/20 12:28 Dose: 1 gm Documented by: [id number] Admin: 09/21/20 10:10 Dose: 1 gm Documented by: [id number] Admin: 09/20/20 21:52 Dose: 1 gm Documented by: [id number] Admin: 09/20/20 18:28 Dose: Not Given Documented by: [id number] Admin: 09/20/20 12:41 Dose: 1 gm Documented by: [id number] Admin: 09/20/20 08:10 Dose: Not Given Documented by: [id number] Admin: 09/19/20 20:32 Dose: Not Given Documented by: [id number] Admin: 09/19/20 16:18 Dose: Not Given Documented by: [id number] Admin: 09/19/20 12:58 Dose: Not Given Documented by: [id number] Admin: 09/19/20 10:13 Dose: Not Given Documented by: [id number] Admin: 09/18/20 21:12 Dose: 1 gm Documented by: [id number] Admin: 09/18/20 16:38 Dose: 1 gm Documented by: [id number] Coding Level of Care Code 45011 [facility] Lvl 2
[2020-09-24] MEDS: MIRTAZAPINE SOLTAB 15 MG PO SCH (20:21)
[2020-09-25] MEDS ORDERED: SODIUM CHLORIDE 0.9% 500 ML IV SCH (00:15)
[2020-09-25] MEDS ORDERED: VANCOMYCIN HCL 750 MG in SODIUM CHLORIDE 0.9% 250 ML IV SCH ×2 (01:00→20:00)
[2020-09-25] MEDS ORDERED: VANCOMYCIN HCL 750 MG in SODIUM CHLORIDE 0.9% 250 ML IV ONE (01:30)
--- NOTE | 2020-09-25 02:15 | Pharmacy Report ---
Pharmacy Abx Dose Short Note - Date of Service September 25, 2020 - Assessment & Plan Assessment 89 year old F receiving Vancomycin, Cefepime, and Flagyl for empiric abx therapy Day #2 of antimicrobial therapy. SABINE developed overnight so trough was ordered after loading dose to assess patient's clearance Plan Vancomycin * Trough level of 8.9 mcg/mL is subtherapeutic * Give 750 mg IV x 1 dose now - this will be last dose for empiric indication (48 hr stop date) * Primary team to reassess in the AM if Vancomycin to be continued * Goal trough level: 15 mcg/mL * No further levels will be ordered unless Vancomycin duration is extended Pharmacy will continue to follow and will adjust dose/frequency as necessary. Thank you.
[2020-09-25] MEDS: metroNIDAZOLE 500 MG/100 ML BAG IV SCH ×3 (05:46→21:57)
[2020-09-25 06:27] LABS: Hematocrit (blood only) 30.8 % (37-47); Hemoglobin 9.8 g/dL (12.0-16.0); Mean Corpuscular Hemoglobin 30.8 pg (25-34); Mean Corpuscular Hgb Conc 31.8 g/dL (32-36); Mean Corpuscular Volume 96.9 fL (80-100); Mean Platelet Volume 10.2 fL (7.4-10.4); Platelet Count 188 K/uL (130-400); RDW Coefficient of Variation 14.6 % (11.5-14.5); RDW Standard Deviation 52.4 fL (36.4-46.3); Red Blood Count 3.18 M/uL (4.2-5.4); White Blood Count 7.21 K/uL (4.8-10.8)
[2020-09-25 07:06] LABS: BUN Creatinine Ratio 24.6 (10-20); Calcium 7.6 mg/dl (8.5-10.1); Creatinine Clr Calc Pharmacy 31.1 ml/min; Est GFR (Non-African American) 51.8 ml/min; Magnesium 2.3 mg/dl (1.8-2.4); Phosphorus 2.4 mg/dl (2.5-4.9); Potassium 3.5 mmol/L (3.5-5.1)
[2020-09-25] MEDS: PANTOprazole 40 MG in SYRINGE 0 ML IV SCH ×2 (09:35→20:33)
[2020-09-25] MEDS: CEFEPIME 2,000 MG in SYRINGE 0 ML IV SCH ×2 (09:35→20:24)
[2020-09-25] MEDS: SUCRALFATE 1 GM TAB PO SCH ×5 (09:36→20:33)
[2020-09-25] MEDS: amLODIPine BESYLATE 5 MG TAB PO SCH ×2 (09:36→11:26)
[2020-09-25] MEDS: METOPROLOL SUCC 25MG EXT REL TAB PO SCH (09:37)
[2020-09-25] MEDS: risperiDONE ODT 0.5 MG SOLTAB PO SCH ×3 (09:37→20:32)
[2020-09-25] MEDS: MULTIVITAMIN TAB PO SCH ×2 (09:37→11:26)
[2020-09-25] MEDS: MAGNESIUM OXIDE 400 MG TAB PO SCH ×3 (09:38→20:33)
[2020-09-25] MEDS: DEXTROSE 5% 1,000 ML IV SCH (09:46)
[2020-09-25] MEDS ORDERED: POTASSIUM PHOS 3 MMOL/1 ML INFUSION IV STA (10:59)
--- NOTE | 2020-09-25 11:17 | Hospitalist Progress Note ---
Date of Service September 25, 2020 Assessment & Plan (1) GI bleed: Plan: Pt is 89-year-old female with history of dementia and atrial fibrillation on aspirin presenting with diarrhea and melena. Acute GI bleed, likely from Gastritis Hemoglobin 14 --> 11 Hemoglobin slightly decreased , occasional maroon stools- likely residual Hg around 9-10, cont. to monitor Status post EGD: Positive for medium sized hiatal hernia, gastritis, nonobstructing Schatzi's ring Biopsy result pending Protonix IV--> 40 mg PO twice daily x4 weeks, then daily Sucralfate 1 g p.o. 4 times daily x2 weeks GI recommending decision for repeat EGD in 8 to 12 weeks to be determined by PCP given advanced age Aspiration? poss. aspiration PNA 09/23/2020 - AM observed by nursing staff that patient had difficulty swallowing, and sounded gurgly She was suctioned by nursing staff Speech therapist was contacted, and speech eval obtained at bedside recommend n.p.o. Contacted pt's granddaughter, she says "no" to any feeding tubes Asked her about palliative medicine consultation She is especially concerned about her psychiatric medications, says that this has been been managed and sometimes changed without psychiatry notice Reports that pt had a catatonic episode in May, and so psychiatry consultation requested Psych consulted - Hold risperidone for now. Hold Remeron for now. No need for urgent psychiatric medication administration. Continue to search for and treat sources of infection Continue to correct patient's electrolytes, there are numerous abnormalities that may be contributing to her poor mental state including hypocalcemia, hypernatremia. Consider palliative consult Palliative medicine consulted - appreciate their help Add glycopyrrolate to reduce secretions as she is aspiration risk and unable to clear her secretions Fever In the evening of September 23 patient developed fever Blood cultures, urine, stool cultx, c. diff, chest x-ray obtained Antibiotics changed to Zosyn from ceftriaxone for poss. aspiration, received dose of vancomycin Now on cefepime + Flagyl for poss. aspiration No other fever Blood cultx - NGTD UA c/w UTI U cultx - pending Stool cultx - pending CXR 1. Interstitial thickening suggestive of mild pulmonary edema. 2. Mild left lower lung opacities. This could reflect an infectious process or atelectasis. Diarrhea Likely secondary to #1 C. difficile negative Stool cultures negative resolved Stool cultx repeated and pending d/t fever E. coli UTI Urine culture E. coli Ceftriaxone day #5/5 - finished (now antibiotics broadened) Follow repeat UA, U cultx Hypertension PRN Hydralazine Added Amlodipine 10 mg p.o. daily BP was improving Now BP low Chronic A. fib No anticoagulation secondary to bleeding Usually on metoprolol p.o. and aspirin Continue usual metoprolol 25 mg p.o. daily (now NPO) Aspirin on hold secondary to GI bleed discuss with GI re: timing of Aspirin resumption Dementia Patient lethargic when unable to take Risperidone per [facility] staff, patient is mostly awake but can be lethargic at time Always assist with feeding --Mental status improving - Now npo d/t high risk of aspiration Hypernatremia Na 141--> 150 D5W at 60cc/hr PRP daily Now Na 144 Disposition Not clear at this time Previous plan was Return to shelter facility when medically stable, Na normalizes Follow-up with PCP in 1 week Admission and Anticipated Discharge Date Admission Date: September 18, 2020 Subjective Pt seen in follow-up for GI bleed, UTI, ?aspiration Patient is sitting up in bed, in no acute distress sleeping but able to awake and she answers a few simple questions appropriately Currently not in distress She denies any pain or discomfort Review of Systems Review of Systems: Unable to obtain full review of system due to cognitive status, however patient denies any pain or discomfort Physical Exam Physical Exam: General- elderly F, not in distress, however difficult to respond, only answers in 1 word answers Eyes- anicteric Neck- no JVD Lungs- + mild rhonchi/ +upper breath sounds Heart- normal rate, regular rhythm; no murmurs Abdomen- normal bowel sounds, nondistended, soft, nontender Extremities- no pretibial edema, no calf tenderness Neuro-responds only after little prompting, only answers very few questions, gives 1 word answers Skin- warm & dry Results & Data Results & Data ([facility]) Vital Signs (Past 12 Hours) Vital Signs Temp Pulse Pulse Resp BP BP Pulse Ox 09/25/20 11:03 36.6 C 90 18 145/73 H 98 09/25/20 08:03 36.8 C 90 18 126/57 L 98 09/25/20 04:00 36.9 C 96 H 18 128/74 99 09/24/20 23:59 83 09/24/20 23:35 36.9 C 105 H 18 146/74 H 98 Laboratory Results 09/25/20 09/25/20 09/25/20 Range/Units 07:03 06:02 06:02 WBC 7.21 (4.8-10.8) K/uL RBC 3.18 L (4.2-5.4) M/uL Hgb 9.8 L (12.0-16.0) g/dL Hct 30.8 L (37-47) % MCV 96.9 (80-100) fL MCH 30.8 (25-34) pg MCHC 31.8 L (32-36) g/dL RDW Std Deviation 52.4 H (36.4-46.3) fL RDW Coeff of Lissa 14.6 H (11.5-14.5) % Plt Count 188 (130-400) K/uL MPV 10.2 (7.4-10.4) fL Sodium 144 (136-145) mmol/L Potassium 3.5 (3.5-5.1) mmol/L Chloride 118 H (98-107) mmol/L Carbon Dioxide 20 L (21-32) mmol/L Anion Gap 5.0 (3-11) BUN 24 H (7-18) mg/dl Creatinine 0.97 D (0.6-1.2) mg/dl Est Cr Clr Drug Dosing 31.1 ml/min Est GFR ( Amer) 60.0 ml/min Est GFR (Non-Af Amer) 51.8 ml/min BUN/Creatinine Ratio 24.6 H (10-20) Glucose 112 H (70-99) mg/dl Calcium 7.6 L (8.5-10.1) mg/dl Ionized Calcium 1.12 (1.12-1.32) mmol/L Phosphorus 2.4 L (2.5-4.9) mg/dl Magnesium 2.3 (1.8-2.4) mg/dl Vancomycin Trough (See Comment) mcg/ml 09/25/20 Range/Units 00:35 WBC (4.8-10.8) K/uL RBC (4.2-5.4) M/uL Hgb (12.0-16.0) g/dL Hct (37-47) % MCV (80-100) fL MCH (25-34) pg MCHC (32-36) g/dL RDW Std Deviation (36.4-46.3) fL RDW Coeff of Lissa (11.5-14.5) % Plt Count (130-400) K/uL MPV (7.4-10.4) fL Sodium (136-145) mmol/L Potassium (3.5-5.1) mmol/L Chloride (98-107) mmol/L Carbon Dioxide (21-32) mmol/L Anion Gap (3-11) BUN (7-18) mg/dl Creatinine (0.6-1.2) mg/dl Est Cr Clr Drug Dosing ml/min Est GFR ( Amer) ml/min Est GFR (Non-Af Amer) ml/min BUN/Creatinine Ratio (10-20) Glucose (70-99) mg/dl Calcium (8.5-10.1) mg/dl Ionized Calcium (1.12-1.32) mmol/L Phosphorus (2.5-4.9) mg/dl Magnesium (1.8-2.4) mg/dl Vancomycin Trough 8.9 (See Comment) mcg/ml Medications Administered Current Inpatient Medications Acetaminophen (Acetaminophen 325 Mg Tab) 650 mg PO Q4H PRN PRN Reason: pain/fever Stop: 10/18/20 02:36 Acetaminophen (Acetaminophen 1000 Mg/100 Ml Iv) 1,000 mg IV Q8H PRN PRN Reason: pain, fever, discomfort Stop: 09/26/20 19:17 Last Admin: 09/23/20 20:05 Dose: 1,000 mg Documented by: Amlodipine Besylate (Amlodipine Besylate 5 Mg Tab) [facility] [place]: 10/21/20 08:59 Last Admin: 09/24/20 08:44 Dose: Not Given Documented by: Glycopyrrolate (Glycopyrrolate 0.2 Mg/Ml Vial) 0.2 mg IV Q4H PRN PRN Reason: secretions Stop: 10/24/20 14:18 Hydralazine HCl (Hydralazine Hcl 20 Mg/Ml Vial) 2.5 mg IV Q6H PRN PRN Reason: hypertension Stop: 10/18/20 08:44 Last Admin: 09/21/20 04:30 Dose: 2.5 mg Documented by: Dextrose (D5w) 1,000 mls @ 60 mls/hr IV .[id number] [facility] Stop: 10/22/20 15:29 Last Admin: 09/25/20 09:46 Dose: 60 mls/hr Documented by: Pantoprazole Sodium 40 mg/ (Syringe) 10 mls @ 5 mls/min IV BID [facility] Stop: 10/23/20 20:59 Last Admin: 09/25/20 09:35 Dose: 5 mls/min Documented by: Metronidazole (Flagyl) 500 mg in 100 mls @ 100 mls/hr IV Q8 [facility] Stop: 09/26/20 13:59 Last Infusion: 09/25/20 07:59 Dose: Infused Documented by: Cefepime HCl 2,000 mg/ Syringe 20 mls @ 5 mls/min IV Q12 [facility]; Protocol Stop: 09/26/20 23:59 Last Admin: 09/25/20 09:35 Dose: 5 mls/min Documented by: Potassium Chloride (K Brandon / Wtr) 10 meq in 100 mls @ 100 mls/hr IV Q1H [facility] Stop: 09/25/20 12:59 Potassium Phosphate 9 mmol/ (Sodium Chloride) 253 mls @ 88 mls/hr IV ONE ONE Stop: 09/25/20 15:52 Magnesium Oxide (Magnesium Oxide 400 Mg Tab) 400 mg PO BID [facility] Stop: 10/20/20 20:59 Last Admin: 09/24/20 20:19 Dose: Not Given Documented by: Melatonin (Melatonin 3 Mg Tab) 3 mg PO HS [facility] Stop: 10/18/20 20:59 Last Admin: 09/21/20 20:50 Dose: Not Given Documented by: Metoprolol Succinate (Metoprolol Succ 25mg Ext Rel Tab) 25 mg PO QAM [facility] Stop: 10/20/20 13:44 Last Admin: 09/25/20 09:37 Dose: 25 mg Documented by: Metoprolol Tartrate (Metoprolol Tartrate 1 Mg/Ml Vial) 2.5 mg IV Q6 PRN PRN Reason: tachycardia Stop: 10/18/20 11:29 Last Admin: 09/22/20 23:52 Dose: 2.5 mg Documented by: Miconazole Nitrate (Miconazole Nitrate Powder 43 Gm) 1 appln EXT PRN PRN PRN Reason: Affected Skin Folds Stop: 10/20/20 16:41 Mirtazapine (Mirtazapine Soltab 15 Mg) 15 mg PO HS [facility] Stop: 10/18/20 20:59 Last Admin: 09/24/20 20:21 Dose: Not Given Documented by: Miscellaneous Information (Vancomycin Consult Active) 1 ea N/A UD PRN PRN Reason: Consult Stop: 10/24/20 01:11 Miscellaneous Information (Cefepime Consult Active) 1 ea N/A UD PRN PRN Reason: Consult Stop: 10/24/20 12:09 Multivitamins (Multivitamin Tab) 1 tab PO QAM [facility] Stop: 10/18/20 08:59 Last Admin: 09/24/20 08:44 Dose: Not Given Documented by: Ondansetron HCl (Ondansetron Inj 2 Mg/Ml 2 Ml Vial) 4 mg IV Q6H PRN PRN Reason: Nausea Stop: 10/18/20 02:36 Risperidone (Risperidone Odt 0.5 Mg Soltab) 0.5 mg PO BID [facility] Stop: 10/20/20 12:29 Last Admin: 09/25/20 09:37 Dose: 0.5 mg Documented by: Sucralfate (Sucralfate 1 Gm Tab) 1 gm PO QID [facility] Stop: 10/18/20 16:59 Last Admin: 09/24/20 20:21 Dose: Not Given Documented by:
[2020-09-25] MEDS ORDERED: POTASSIUM PHOSPHATE 9 MMOL in SODIUM CHLORIDE 0.9% 250 ML IV ONE (13:00)
--- NOTE | 2020-09-25 13:19 | Palliative Care Progress Note ---
Date of Service September 25, 2020 Assessment & Plan (1) Dysphagia: Plan: With improved mental status today, she is tolerating pureed consistency with thickened liquids per speech therapy. (2) Palliative care encounter: Plan: I spoke with her granddaughter, Maya, who is her POA. She has seen a gradual decline in Deedee over the last few months. We reviewed how Deedee was doing today and recommendations from speech therapy. There is some conflict in the family regarding goals for artificial feeding. Maya and her uncle feel that Deedee would not want any type of artificial feeding. But Deedee's daughter has said that she would want to do everything possible to keep her mother alive. Maya feels that a less agressive approach is more consistent with what Deedee would want. She notes that Deedee really enjoys eating and she feels that Deedee would want to be able to eat, knowing the risk of aspiration. She feels that it would not be in her best interest to repeatedly treat with antibiotics when this happens. She does want to discuss this with her uncle and we will f/u to discuss further. (3) GI bleed: (4) Dementia: Admission and Anticipated Discharge Date Admission Date: September 18, 2020 Subjective More alert today. Ate applesauce with speech therapist. Coughs with thin liquids. Answered "that would be ok" when I asked her if I could examine her. Review of Systems Review of Systems: Unobtainable due to cognitive status Hagerman Symptom Assessment Scale Pain 0/3 Dyspnea 0/3 Palliative Performance Score 20% Physical Exam Constitutional: + ill appearing and comfortable Respiratory: normal respiratory effort; no labored breathing Gastrointestinal (Abdomen): Inspection/Auscultation: abdomen not distended Percussion/Palpation: abdomen nontender Neurologic: Speech / Cognition: + abnormal cognition Results & Data ([facility]) Vital Signs (Past 12 Hours) Vital Signs Temp Pulse Resp BP BP Pulse Ox 09/25/20 11:03 97.9 F 90 18 145/73 H 98 09/25/20 08:03 98.2 F 90 18 126/57 L 98 09/25/20 04:00 98.4 F 96 H 18 128/74 99 PG Care Time/CCT Total # of Minutes Spent Total Time Spent with Patient: Total time spent is greater than 50% in coordination of care (as documented) at patient's floor/unit and/or counseling patient: Coding Level of Care Code 47693 Subseq Hosp Care Lvl 2 Diagnoses Dysphagia R13.10 Palliative care encounter Z51.5 GI bleed K92.2 Dementia F03.90 Dementia behavioral disturbance: without behavioral disturbance Dementia type: unspecified type (1) Dementia Dementia behavioral disturbance: without behavioral disturbance Dementia type: unspecified type Qualified Code(s): F03.90 - Unspecified dementia without behavioral disturbance
[2020-09-25] MEDS: POTASSIUM CHLORIDE / WTR 10 MEQ/100 ML PLCT IV SCH ×2 (13:30→13:31)
[2020-09-25] MEDS: MIRTAZAPINE SOLTAB 15 MG PO SCH (20:33)
[2020-09-26] MEDS: metroNIDAZOLE 500 MG/100 ML BAG IV SCH ×3 (06:10→21:14)
[2020-09-26 08:05] LABS: Creatinine Clr Calc Pharmacy 39.4 ml/min; Est GFR (African American) 72.5 ml/min; Est GFR (Non-African American) 62.5 ml/min; Potassium 3.9 mmol/L (3.5-5.1)
--- NOTE | 2020-09-26 09:09 | Hospitalist Progress Note ---
Date of Service September 26, 2020 Assessment & Plan (1) GI bleed: Plan: Pt is 89-year-old female with history of dementia and atrial fibrillation on aspirin presenting with diarrhea and melena. Acute GI bleed, likely from Gastritis Hemoglobin 14 --> 11 Hemoglobin slightly decreased , occasional maroon stools- likely residual Hg around 9-10, cont. to monitor Status post EGD: Positive for medium sized hiatal hernia, gastritis, nonobstructing Schatzi's ring Biopsy result pending Protonix IV--> 40 mg PO twice daily x4 weeks, then daily Sucralfate 1 g p.o. 4 times daily x2 weeks GI recommending decision for repeat EGD in 8 to 12 weeks to be determined by PCP given advanced age 7/24 Per nursing staff, patient had a bowel movement, brown, no blood Aspiration? poss. aspiration PNA 09/23/2020 - AM observed by nursing staff that patient had difficulty swallowing, and sounded gurgly She was suctioned by nursing staff Speech therapist was contacted, and speech eval obtained at bedside recommend n.p.o. Contacted pt's granddaughter (POA), she says "no" to any feeding tubes, however she reports other family members may not be on the same page, CM aware Asked her about palliative medicine consultation She is especially concerned about her psychiatric medications, says that this has been been managed and sometimes changed without psychiatry notice Reports that pt had a catatonic episode in May, and so psychiatry consultation requested Psych consulted - Hold risperidone for now. Hold Remeron for now. No need for urgent psychiatric medication administration. Continue to search for and treat sources of infection Continue to correct patient's electrolytes, there are numerous abnormalities that may be contributing to her poor mental state including hypocalcemia, hypernatremia. Consider palliative consult Palliative medicine consulted - appreciate their help Add glycopyrrolate to reduce secretions as she is aspiration risk and unable to clear her secretions Fever In the evening of September 23 patient developed fever Blood cultures, urine, stool cultx, c. diff, chest x-ray obtained Antibiotics changed to Zosyn from ceftriaxone for poss. aspiration, received dose of vancomycin Now on cefepime + Flagyl for poss. aspiration No other fever Blood cultx - NGTD UA c/w UTI U cultx - negative Stool cultx - prelim. negative CXR 1. Interstitial thickening suggestive of mild pulmonary edema. 2. Mild left lower lung opacities. This could reflect an infectious process or atelectasis. Diarrhea Likely secondary to #1 C. difficile negative Stool cultures negative resolved Stool cultx repeated d/t fever prelim negative E. coli UTI Urine culture E. coli Ceftriaxone day #5/5 - finished (now antibiotics broadened) Follow repeat UA, U cultx Hypertension PRN Hydralazine Added Amlodipine 10 mg p.o. daily (on hold now) BP was improving, then low now at goal, occasionally elevated Chronic A. fib No anticoagulation secondary to bleeding Usually on metoprolol p.o. and aspirin Continue usual metoprolol 25 mg p.o. daily (now NPO) Aspirin on hold secondary to GI bleed discuss with GI re: timing of Aspirin resumption Dementia Patient lethargic when unable to take Risperidone per [facility] staff, patient is mostly awake but can be lethargic at time Always assist with feeding --Mental status improving - Now npo d/t high risk of aspiration - psychiatry consulted - pls see above Hypernatremia Na 141--> 150 D5W at 60cc/hr PRP daily Now Na 144-145 Disposition Not clear at this time Previous plan [facility] when medically stable, Na normalizes Follow-up with PCP in 1 week Admission and Anticipated Discharge Date Admission Date: September 18, 2020 Subjective Pt seen in follow-up for GI bleed, UTI, ?aspiration Patient is sitting up in bed, in no acute distress, resting she is able to answer a few simple questions appropriately Currently not in distress She denies any pain or discomfort Per nursing staff patient had a bowel movement, brown, no blood Review of Systems Review of Systems: Unable to obtain full review of system due to cognitive status, however patient denies any pain or discomfort Physical Exam Physical Exam: General- elderly F, not in distress, however difficult to respond, only answers in 1 word answers Eyes- anicteric Neck- no JVD Lungs- + mild rhonchi/ +upper breath sounds Heart- normal rate, regular rhythm; no murmurs Abdomen- normal bowel sounds, nondistended, soft, nontender Extremities- no pretibial edema, no calf tenderness Neuro- more awake today, only answers very few questions, usually gives 1 word answers Skin- warm & dry Results & Data Results & Data ([facility]) Vital Signs (Past 12 Hours) Vital Signs Temp Pulse Pulse Resp BP BP Pulse Ox 09/26/20 07:27 36.7 C 103 H 20 134/69 98 09/26/20 03:15 36.5 C 110 H 22 145/67 H 98 09/26/20 01:35 84 09/25/20 23:26 36.6 C 91 H 20 163/77 H 98 Laboratory Results 09/26/20 Range/Units 07:32 Sodium 145 (136-145) mmol/L Potassium 3.9 (3.5-5.1) mmol/L Chloride 119 H (98-107) mmol/L Carbon Dioxide 18 L (21-32) mmol/L Anion Gap 8.0 (3-11) BUN 21 H (7-18) mg/dl Creatinine 0.83 (0.6-1.2) mg/dl Est Cr Clr Drug Dosing 39.4 ml/min Est GFR ( Amer) 72.5 ml/min Est GFR (Non-Af Amer) 62.5 ml/min BUN/Creatinine Ratio 25.0 H (10-20) Glucose 84 (70-99) mg/dl Calcium 8.0 L (8.5-10.1) mg/dl Medications Administered Current Inpatient Medications Acetaminophen (Acetaminophen 325 Mg Tab) 650 mg PO Q4H PRN PRN Reason: pain/fever Stop: 10/18/20 02:36 Acetaminophen (Acetaminophen 1000 Mg/100 Ml Iv) 1,000 mg IV Q8H PRN PRN Reason: pain, fever, discomfort Stop: 09/26/20 19:17 Last Admin: 09/23/20 20:05 Dose: 1,000 mg Documented by: Amlodipine Besylate (Amlodipine Besylate 5 Mg Tab) [facility] Stop: 10/21/20 08:59 Last Admin: 09/25/20 11:26 Dose: Not Given Documented by: Glycopyrrolate (Glycopyrrolate 0.2 Mg/Ml Vial) 0.2 mg IV Q4H PRN PRN Reason: secretions Stop: 10/24/20 14:18 Hydralazine HCl (Hydralazine Hcl 20 Mg/Ml Vial) 2.5 mg IV Q6H PRN PRN Reason: hypertension Stop: 10/18/20 08:44 Last Admin: 09/21/20 04:30 Dose: 2.5 mg Documented by: Dextrose (D5w) 1,000 mls @ 60 mls/hr IV .[id number] [facility] Stop: 10/22/20 15:29 Last Infusion: 09/25/20 13:31 Dose: 0 mls/hr Documented by: Pantoprazole Sodium 40 mg/ (Syringe) 10 mls @ 5 mls/min IV BID [facility] Stop: 10/23/20 20:59 Last Admin: 09/25/20 20:33 Dose: 5 mls/min Documented by: Metronidazole (Flagyl) 500 mg in 100 mls @ 100 mls/hr IV Q8 [facility] Stop: 10/01/20 13:59 Last Infusion: 09/26/20 07:25 Dose: Infused Documented by: Cefepime HCl 2,000 mg/ Syringe 20 mls @ 5 mls/min IV Q12 [facility]; Protocol Stop: 10/02/20 08:59 Last Admin: 09/25/20 20:24 Dose: 5 mls/min Documented by: Vancomycin HCl 750 mg/ Sodium (Chloride) 265 mls @ 200 mls/hr IV Q18H [facility] Stop: 10/02/20 19:59 Last Infusion: 09/25/20 21:45 Dose: Infused Documented by: Magnesium Oxide (Magnesium Oxide 400 Mg Tab) 400 mg PO BID [facility] Stop: 10/20/20 20:59 Last Admin: 09/25/20 20:33 Dose: Not Given Documented by: Melatonin (Melatonin 3 Mg Tab) 3 mg PO HS [facility] Stop: 10/18/20 20:59 Last Admin: 09/21/20 20:50 Dose: Not Given Documented by: Metoprolol Succinate (Metoprolol Succ 25mg Ext Rel Tab) 25 mg PO QAM [facility] Stop: 10/20/20 13:44 Last Admin: 09/25/20 09:37 Dose: 25 mg Documented by: Metoprolol Tartrate (Metoprolol Tartrate 1 Mg/Ml Vial) 2.5 mg IV Q6 PRN PRN Reason: tachycardia Stop: 10/18/20 11:29 Last Admin: 09/22/20 23:52 Dose: 2.5 mg Documented by: Miconazole Nitrate (Miconazole Nitrate Powder 43 Gm) 1 appln EXT PRN PRN PRN Reason: Affected Skin Folds Stop: 10/20/20 16:41 Mirtazapine (Mirtazapine Soltab 15 Mg) 15 mg PO HS [facility] Stop: 10/18/20 20:59 Last Admin: 09/25/20 20:33 Dose: Not Given Documented by: Miscellaneous Information (Vancomycin Consult Active) 1 ea N/A UD PRN PRN Reason: Consult Stop: 10/24/20 01:11 Miscellaneous Information (Cefepime Consult Active) 1 ea N/A UD PRN PRN Reason: Consult Stop: 10/24/20 12:09 Multivitamins (Multivitamin Tab) 1 tab PO QAM [facility] Stop: 10/18/20 08:59 Last Admin: 09/25/20 11:26 Dose: Not Given Documented by: Ondansetron HCl (Ondansetron Inj 2 Mg/Ml 2 Ml Vial) 4 mg IV Q6H PRN PRN Reason: Nausea Stop: 10/18/20 02:36 Risperidone (Risperidone Odt 0.5 Mg Soltab) 0.5 mg PO BID [facility] Stop: 10/20/20 12:29 Last Admin: 09/25/20 20:32 Dose: Not Given Documented by: Sucralfate (Sucralfate 1 Gm Tab) 1 gm PO QID [facility] Stop: 10/18/20 16:59 Last Admin: 09/25/20 20:33 Dose: Not Given Documented by:
[2020-09-26] MEDS: CEFEPIME 2,000 MG in SYRINGE 0 ML IV SCH ×2 (09:39→21:12)
[2020-09-26] MEDS: PANTOprazole 40 MG in SYRINGE 0 ML IV SCH ×2 (09:39→21:14)
[2020-09-26] MEDS: amLODIPine BESYLATE 5 MG TAB PO SCH (09:46)
[2020-09-26] MEDS: MULTIVITAMIN TAB PO SCH (09:46)
[2020-09-26] MEDS: MAGNESIUM OXIDE 400 MG TAB PO SCH ×2 (09:46→21:13)
[2020-09-26] MEDS: SUCRALFATE 1 GM TAB PO SCH ×4 (09:46→21:13)
[2020-09-26] MEDS: risperiDONE ODT 0.5 MG SOLTAB PO SCH ×2 (09:46→21:13)
[2020-09-26] MEDS: METOPROLOL SUCC 25MG EXT REL TAB PO SCH (09:46)
[2020-09-26] MEDS ORDERED: VANCOMYCIN TROUGH ONE (13:30)
[2020-09-26] MEDS: MIRTAZAPINE SOLTAB 15 MG PO SCH (21:13)
[2020-09-26] MEDS: DEXTROSE 5% 1,000 ML IV SCH (22:26)
[2020-09-27] MEDS: metroNIDAZOLE 500 MG/100 ML BAG IV SCH ×3 (05:24→23:15)
[2020-09-27 07:09] LABS: Calcium 8.1 mg/dl (8.5-10.1); Creatinine Clr Calc Pharmacy 38.2 ml/min; Est GFR (African American) 69.4 ml/min; Est GFR (Non-African American) 59.9 ml/min; Magnesium 1.9 mg/dl (1.8-2.4); Phosphorus 2.2 mg/dl (2.5-4.9); Potassium 3.7 mmol/L (3.5-5.1)
[2020-09-27] MEDS: PANTOprazole 40 MG in SYRINGE 0 ML IV SCH ×2 (09:36→19:43)
[2020-09-27] MEDS: CEFEPIME 2,000 MG in SYRINGE 0 ML IV SCH ×2 (09:36→19:30)
[2020-09-27] MEDS: METOPROLOL SUCC 25MG EXT REL TAB PO SCH (09:36)
[2020-09-27] MEDS: hydrALAZINE HCL 20 MG/ML VIAL IV PRN (12:19)
--- NOTE | 2020-09-27 12:21 | Hospitalist Progress Note ---
Date of Service September 27, 2020 Assessment & Plan (1) GI bleed: Plan: Pt is 89-year-old female with history of dementia and atrial fibrillation on aspirin presenting with diarrhea and melena. Acute GI bleed, likely from Gastritis Hemoglobin 14 --> 11 Hemoglobin slightly decreased , occasional maroon stools- likely residual Hg around 9-10, cont. to monitor Status post EGD: Positive for medium sized hiatal hernia, gastritis, nonobstructing Schatzi's ring Biopsy result pending Protonix IV--> 40 mg PO twice daily x4 weeks, then daily Sucralfate 1 g p.o. 4 times daily x2 weeks GI recommending decision for repeat EGD in 8 to 12 weeks to be determined by PCP given advanced age 7/24 Per nursing staff, patient had a bowel movement, brown, no blood Aspiration? poss. aspiration PNA 09/23/2020 - AM observed by nursing staff that patient had difficulty swallowing, and sounded gurgly She was suctioned by nursing staff Speech therapist was contacted, and speech eval obtained at bedside recommend n.p.o. Contacted pt's granddaughter (POA), she says "no" to any feeding tubes, however she reports other family members may not be on the same page, CM aware Asked her about palliative medicine consultation She is especially concerned about her psychiatric medications, says that this has been been managed and sometimes changed without psychiatry notice Reports that pt had a catatonic episode in May, and so psychiatry consultation requested Psych consulted - Hold risperidone for now. Hold Remeron for now. No need for urgent psychiatric medication administration. Continue to search for and treat sources of infection Continue to correct patient's electrolytes, there are numerous abnormalities that may be contributing to her poor mental state including hypocalcemia, hypernatremia. Consider palliative consult Palliative medicine consulted - appreciate their help Add glycopyrrolate to reduce secretions as she is aspiration risk and unable to clear her secretions Fever In the evening of September 23 patient developed fever Blood cultures, urine, stool cultx, c. diff, chest x-ray obtained Antibiotics changed to Zosyn from ceftriaxone for poss. aspiration, received dose of vancomycin Now on cefepime + Flagyl for poss. aspiration No other fever Blood cultx - NGTD UA c/w UTI U cultx - negative Stool cultx - prelim. negative CXR 1. Interstitial thickening suggestive of mild pulmonary edema. 2. Mild left lower lung opacities. This could reflect an infectious process or atelectasis. Diarrhea Likely secondary to #1 C. difficile negative Stool cultures negative resolved Stool cultx repeated d/t fever prelim negative E. coli UTI Urine culture E. coli Ceftriaxone day #5/5 - finished (now antibiotics broadened) Follow repeat UA, U cultx Hypertension PRN Hydralazine Added Amlodipine 10 mg p.o. daily (on hold now) BP was improving, then low now at goal, occasionally elevated Chronic A. fib No anticoagulation secondary to bleeding Usually on metoprolol p.o. and aspirin Continue usual metoprolol 25 mg p.o. daily (now NPO) Aspirin on hold secondary to GI bleed discuss with GI re: timing of Aspirin resumption Dementia Patient lethargic when unable to take Risperidone per [facility] staff, patient is mostly awake but can be lethargic at time Always assist with feeding --Mental status improving - Now npo d/t high risk of aspiration - psychiatry consulted - pls see above Hypernatremia Na 141--> 150 D5W at 60cc/hr - now stopped PRP daily Now Na 144-145 Disposition Not clear at this time Previous plan was Return to [facility] facility when medically stable, Na normalizes Follow-up with PCP in 1 week Patient's POA is her granddaughter TOVA Trejo and also Dr. Chan from palliative medicine in contact with Maya. Dispo to be determined. Admission and Anticipated Discharge Date Admission Date: September 18, 2020 Subjective Pt seen in follow-up for GI bleed, UTI, ?aspiration Patient is sitting up in bed, in no acute distress, resting she is able to answer a few simple questions appropriately Currently not in distress She denies any pain or discomfort Per nursing staff patient had a bowel movement yesterday, barbara, no blood- will cont. to monitor Review of Systems Review of Systems: Unable to obtain full review of system due to cognitive status, however patient denies any pain or discomfort Physical Exam Physical Exam: General- elderly F, not in distress, however difficult to respond, only answers in 1 word answers Eyes- anicteric Neck- no JVD Lungs- + mild rhonchi/ +upper breath sounds (much improved) Heart- normal rate, regular rhythm; no murmurs Abdomen- normal bowel sounds, nondistended, soft, nontender Extremities- no pretibial edema, no calf tenderness Neuro- more awake today, only answers very few questions, usually gives 1 word answers Skin- warm & dry Results & Data Results & Data ([facility]) Vital Signs (Past 12 Hours) Vital Signs Temp Pulse Pulse Pulse Resp BP Pulse Ox 09/27/20 12:05 36.5 C 92 H 21 167/82 H 98 09/27/20 09:17 89 09/27/20 06:56 36.3 C L 97 H 22 166/85 H 97 09/27/20 03:15 36.6 C 102 H 20 155/77 H 98 09/27/20 01:50 93 H Laboratory Results 09/27/20 Range/Units 06:31 Sodium 144 (136-145) mmol/L Potassium 3.7 (3.5-5.1) mmol/L Chloride 118 H (98-107) mmol/L Carbon Dioxide 20 L (21-32) mmol/L Anion Gap 6.0 (3-11) BUN 22 H (7-18) mg/dl Creatinine 0.86 (0.6-1.2) mg/dl Est Cr Clr Drug Dosing 38.2 ml/min Est GFR ( Amer) 69.4 ml/min Est GFR (Non-Af Amer) 59.9 ml/min BUN/Creatinine Ratio 26.0 H (10-20) Glucose 120 H (70-99) mg/dl Calcium 8.1 L (8.5-10.1) mg/dl Phosphorus 2.2 L (2.5-4.9) mg/dl Magnesium 1.9 (1.8-2.4) mg/dl Medications Administered Current Inpatient Medications Acetaminophen (Acetaminophen 325 Mg Tab) 650 mg PO Q4H PRN PRN Reason: pain/fever Stop: 10/18/20 02:36 Amlodipine Besylate (Amlodipine Besylate 5 Mg Tab) 5 mg PO QAM [facility] Stop: 10/21/20 08:59 Last Admin: 09/26/20 09:46 Dose: Not Given Documented by: Glycopyrrolate (Glycopyrrolate 0.2 Mg/Ml Vial) 0.2 mg IV Q4H PRN PRN Reason: secretions Stop: 10/24/20 14:18 Hydralazine HCl (Hydralazine Hcl 20 Mg/Ml Vial) 2.5 mg IV Q6H PRN PRN Reason: hypertension Stop: 10/18/20 08:44 Last Admin: 09/21/20 04:30 Dose: 2.5 mg Documented by: Dextrose (D5w) 1,000 mls @ 60 mls/hr IV .[id number] [facility] Stop: 10/22/20 15:29 Last Admin: 09/26/20 22:26 Dose: 60 mls/hr Documented by: Pantoprazole Sodium 40 mg/ (Syringe) 10 mls @ 5 mls/min IV BID [facility] Stop: 10/23/20 20:59 Last Admin: 09/27/20 09:36 Dose: 5 mls/min Documented by: Metronidazole (Flagyl) 500 mg in 100 mls @ 100 mls/hr IV Q8 [facility] Stop: 10/01/20 13:59 Last Infusion: 09/27/20 06:30 Dose: Infused Documented by: Cefepime HCl 2,000 mg/ Syringe 20 mls @ 5 mls/min IV Q12 [facility]; Protocol Stop: 10/02/20 08:59 Last Admin: 09/27/20 09:36 Dose: 5 mls/min Documented by: Magnesium Oxide (Magnesium Oxide 400 Mg Tab) 400 mg PO BID [facility] Stop: 10/20/20 20:59 Last Admin: 09/26/20 21:13 Dose: Not Given Documented by: Melatonin (Melatonin 3 Mg Tab) 3 mg PO [facility] Stop: 10/18/20 20:59 Last Admin: 09/21/20 20:50 Dose: Not Given Documented by: Metoprolol Succinate (Metoprolol Succ 25mg Ext Rel Tab) [facility] Stop: 10/20/20 13:44 Last Admin: 09/27/20 09:36 Dose: 25 mg Documented by: Metoprolol Tartrate (Metoprolol Tartrate 1 Mg/Ml Vial) 2.5 mg IV Q6 PRN PRN Reason: tachycardia Stop: 10/18/20 11:29 Last Admin: 09/22/20 23:52 Dose: 2.5 mg Documented by: Miconazole Nitrate (Miconazole Nitrate Powder 43 Gm) 1 appln EXT PRN PRN PRN Reason: Affected Skin Folds Stop: 10/20/20 16:41 Mirtazapine (Mirtazapine Soltab 15 Mg) 15 mg PO [facility] Stop: 10/18/20 20:59 Last Admin: 09/26/20 21:13 Dose: Not Given Documented by: Miscellaneous Information (Cefepime Consult Active) 1 ea N/A UD PRN PRN Reason: Consult Stop: 10/24/20 12:09 Multivitamins (Multivitamin Tab) 1 tab PO QAM [facility] Stop: 10/18/20 08:59 Last Admin: 09/26/20 09:46 Dose: Not Given Documented by: Ondansetron HCl (Ondansetron Inj 2 Mg/Ml 2 Ml Vial) 4 mg IV Q6H PRN PRN Reason: Nausea Stop: 10/18/20 02:36 Risperidone (Risperidone Odt 0.5 Mg Soltab) 0.5 mg PO BID [facility] Stop: 10/20/20 12:29 Last Admin: 09/26/20 21:13 Dose: Not Given Documented by: Sucralfate (Sucralfate 1 Gm Tab) 1 gm PO QID [facility] Stop: 10/18/20 16:59 Last Admin: 09/26/20 21:13 Dose: Not Given Documented by:
[2020-09-27] MEDS: DEXTROSE 5% 1,000 ML IV SCH (12:22)
[2020-09-27] MEDS: amLODIPine BESYLATE 5 MG TAB PO SCH (12:22)
[2020-09-27] MEDS: risperiDONE ODT 0.5 MG SOLTAB PO SCH ×2 (12:22→19:32)
[2020-09-27] MEDS: MAGNESIUM OXIDE 400 MG TAB PO SCH ×2 (12:22→19:32)
[2020-09-27] MEDS: SUCRALFATE 1 GM TAB PO SCH ×4 (12:22→19:35)
[2020-09-27] MEDS: MULTIVITAMIN TAB PO SCH (12:22)
--- NOTE | 2020-09-27 12:39 | Palliative Care Progress Note ---
Date of Service September 27, 2020 Assessment & Plan (1) Dysphagia: Plan: Tolerating pureed diet and ice chips. Family considering permissive aspiration. (2) Palliative care encounter: Plan: I have spoken with her granddaughter, Maya, who is her POA. She tells me that food and eating are very important to Deedee and she is confident that Deedee would not want a PEG tube. She, personally, feels that Deedee would want to eat with permissive aspiration. She understands that Deedee is declining. She had wanted to discuss this with other family members. I talked with Maya for 30 minutes about goals of care for Deedee. We reviewed her downward trending hemoglobin. She does not want colonoscopy or additional testing and feels that Deedee would not want any surgeries. She would like to continue antibiotic treatment for the current course in the event that infection is contributing to GI bleeding. We also talked about aspiration and feeding. She has discussed this with her uncle and is confident that Deedee would want to have permissive aspiration with foods that she enjoys. She notes that Deedee likes [employer]eps[employer] and ice cream. She also like [employer] cookies. Maya understands that she may aspirate and would not want additional antibiotic treatment beyond the current course. She would want focus of care to be comfort. She asked about where we go from here and we discussed return to [facility]. She has some reservations about whether Deedee would be able to get her comfort foods at [facility]. We talked about this being more likely with focus on comfort and permissive aspiration. We also discussed having hospice follow her at [facility] for additional support and focus on comfort. She would like to discuss with [facility] and will call them. Discussed with Dr. Calixto and RN for focus of comfort with permissive aspiration of Deedee's favorite foods. She has glycopyrrolate ordered. Will add opioid prn for pain or dyspnea. (3) GI bleed: (4) Dementia: Admission and Anticipated Discharge Date Admission Date: September 18, 2020 Subjective Awake. Answering simple questions. Denies pain or shortness of breath. Per RN she is tolerating meds in applesauce and ice chips. Review of Systems Review of Systems: [place] Symptom Assessment Scale Pain 0/3 Dyspnea 0/3 Anxiety 0/3 Fatigue 2/3 Drowsiness 1/3 Palliative Performance Score 20% Physical Exam Constitutional: + frail appearing; no acute distress ENMT: Mouth: + dry oral mucous membranes Respiratory: normal respiratory effort; no labored breathing Gastrointestinal (Abdomen): nontender Musculoskeletal: Extremities: + muscle atrophy Results & Data ([facility]) Vital Signs (Past 12 Hours) Vital Signs Temp Pulse Pulse Pulse Resp BP Pulse Ox 09/27/20 12:05 97.7 F 92 H 21 167/82 H 98 09/27/20 09:17 89 09/27/20 06:56 97.3 F L 97 H 22 166/85 H 97 09/27/20 03:15 97.9 F 102 H 20 155/77 H 98 09/27/20 01:50 93 H PG Care Time/CCT Total # of Minutes Spent Total Time Spent: 70 Total Time Spent with Patient: Total time spent is greater than 50% in coordination of care (as documented) at patient's floor/unit and/or counseling patient: goals of care, symptom management, hospice, disposition Prolonged Care Time Total Prolonged Care Time: 35 70 Coding Level of Care Code 86830 Subseq Hosp Care Lvl 3 Diagnoses Dysphagia R13.10 Palliative care encounter Z51.5 GI bleed K92.2 Dementia F03.90 Dementia behavioral disturbance: without behavioral disturbance Dementia type: unspecified type Time Spent (min) 70 (1) Dementia Dementia behavioral disturbance: without behavioral disturbance Dementia type: unspecified type Qualified Code(s): F03.90 - Unspecified dementia without behavioral disturbance
[2020-09-27] MEDS ORDERED: MoRPHine SULFATE 2 MG/ML CARP IV PRN (14:02)
[2020-09-27] MEDS: MIRTAZAPINE SOLTAB 15 MG PO SCH (19:32)
[2020-09-28] MEDS: DEXTROSE 5% 1,000 ML IV SCH (04:56)
[2020-09-28] MEDS: metroNIDAZOLE 500 MG/100 ML BAG IV SCH ×3 (05:36→20:42)
[2020-09-28] MEDS: MAGNESIUM OXIDE 400 MG TAB PO SCH (08:11)
[2020-09-28] MEDS: METOPROLOL SUCC 25MG EXT REL TAB PO SCH (08:11)
[2020-09-28] MEDS: risperiDONE ODT 0.5 MG SOLTAB PO SCH ×2 (08:11→20:43)
[2020-09-28] MEDS: SUCRALFATE 1 GM TAB PO SCH (08:11)
[2020-09-28] MEDS: CEFEPIME 2,000 MG in SYRINGE 0 ML IV SCH ×2 (08:11→20:42)
[2020-09-28] MEDS: amLODIPine BESYLATE 5 MG TAB PO SCH (08:11)
[2020-09-28] MEDS: PANTOprazole 40 MG in SYRINGE 0 ML IV SCH ×2 (08:11→20:43)
[2020-09-28] MEDS: MULTIVITAMIN TAB PO SCH (08:11)
[2020-09-28 08:41] LABS: Calcium 7.8 mg/dl (8.5-10.1); Creatinine Clr Calc Pharmacy 41.8 ml/min; Est GFR (African American) 76.9 ml/min; Est GFR (Non-African American) 66.4 ml/min; Magnesium 1.8 mg/dl (1.8-2.4); Phosphorus 1.5 mg/dl (2.5-4.9); Potassium 3.3 mmol/L (3.5-5.1)
[2020-09-28] MEDS ORDERED: POTASSIUM PHOS 3 MMOL/1 ML INFUSION IV STA (08:56)
[2020-09-28] MEDS ORDERED: ACETAMINOPHEN 1000 MG/100 ML IV IV PRN (09:01)
[2020-09-28] MEDS ORDERED: POTASSIUM PHOSPHATE 21 MMOL in SODIUM CHLORIDE 0.9% 500 ML IV ONE (09:15)
--- NOTE | 2020-09-28 09:20 | Hospitalist Progress Note ---
Date of Service September 28, 2020 Assessment & Plan (1) GI bleed: Plan: Pt is 89-year-old female with history of dementia and atrial fibrillation on aspirin presenting with diarrhea and melena. Acute GI bleed, likely from Gastritis Hemoglobin 14 --> 11 Hemoglobin slightly decreased , occasional maroon stools- likely residual Hg around 9-10, cont. to monitor Status post EGD: Positive for medium sized hiatal hernia, gastritis, nonobstructing Schatzi's ring Biopsy result pending Protonix IV--> 40 mg PO twice daily x4 weeks, then daily - switch to IV protonix (pt can not take PO) Sucralfate 1 g p.o. 4 times daily x2 weeks- pt not able to take PO (will DC) GI recommending decision for repeat EGD in 8 to 12 weeks to be determined by PCP given advanced age 7/24 Per nursing staff, patient had a bowel movement, brown, no blood Aspiration? poss. aspiration PNA 09/23/2020 - AM observed by nursing staff that patient had difficulty swallowing, and sounded gurgly She was suctioned by nursing staff Speech therapist was contacted, and speech eval obtained at bedside recommend n.p.o. Contacted pt's granddaughter (POA), she says "no" to any feeding tubes, however she reports other family members may not be on the same page, CM aware Asked her about palliative medicine consultation She is especially concerned about her psychiatric medications, says that this has been been managed and sometimes changed without psychiatry notice Reports that pt had a catatonic episode in May, and so psychiatry consultation requested Psych consulted - Hold risperidone for now. Hold Remeron for now. No need for urgent psychiatric medication administration. Continue to search for and treat sources of infection Continue to correct patient's electrolytes, there are numerous abnormalities that may be contributing to her poor mental state including hypocalcemia, hypern atremia. Consider palliative consult Palliative medicine consulted - appreciate their help Add glycopyrrolate to reduce secretions as she is aspiration risk and unable to clear her secretions Maya (granddaughter) - POA, however there was some disagreement within the family about who the POA is. Paperwork given to CM. Appreciate palliative medicine input Per [place], permissive aspiration, as patient likes Pepsi/aspirin. No feeding tubes. Fever In the evening of September 23 patient developed fever Blood cultures, urine, stool cultx, c. diff, chest x-ray obtained Antibiotics changed to Zosyn from ceftriaxone for poss. aspiration, received dose of vancomycin Now on cefepime + Flagyl for poss. aspiration No other fever Blood cultx - NGTD UA c/w UTI U cultx - negative Stool cultx - prelim. negative CXR 1. Interstitial thickening suggestive of mild pulmonary edema. 2. Mild left lower lung opacities. This could reflect an infectious process or atelectasis. Diarrhea Likely secondary to #1 C. difficile negative Stool cultures negative resolved Stool cultx repeated d/t fever prelim negative E. coli UTI Urine culture E. coli Ceftriaxone day #5/5 - finished (now antibiotics broadened) Follow repeat UA, U cultx Hypertension PRN Hydralazine Added Amlodipine 10 mg p.o. daily (on hold now) BP was improving, then low now at goal, occasionally elevated Chronic A. fib No anticoagulation secondary to bleeding Usually on metoprolol p.o. and aspirin Continue usual metoprolol 25 mg p.o. daily (now NPO) Aspirin on hold secondary to GI bleed discuss with GI re: timing of Aspirin resumption Dementia Patient lethargic when unable to take Risperidone per [facility] staff, patient is mostly awake but can be lethargic at time Always assist with feeding --Mental status improving - Now npo d/t high risk of aspiration - psychiatry consulted - pls see above Hypernatremia Na 141--> 150 D5W at 60cc/hr - now stopped PRP daily Sodium improved Na 144-145 Now Na 141 Disposition Not clear at this time Previous plan was Return to long term facility when medically stable, Na normalizes Follow-up with PCP in 1 week Patient's POA is her granddaughter TOVA Trejo and also Dr. Chan from palliative medicine in contact with Maya. Dispo to be determined. Admission and Anticipated Discharge Date Admission Date: September 18, 2020 Subjective Pt seen in follow-up for GI bleed, UTI, ?aspiration Patient is sitting up in bed, in no acute distress, resting she is able to answer a few simple questions appropriately Currently not in distress She denies any pain or discomfort Per nursing staff, patient was able to take p.o. metoprolol with applesauce, ice chips. Patient hardly answers any questions to me today, really doubt that patient can take any p.o. however discussed with nursing staff family wishes and conversation with palliative medicine. If/when patient more awake, can try some Pepsi/ice cream for comfort. Will stay very careful to try to prevent any aspiration. Review of Systems Review of Systems: Unable to obtain full review of system due to cognitive status, however patient denies any pain or discomfort Physical Exam Physical Exam: General- elderly F, not in distress, however difficult to respond, only answers in 1 word answers Eyes- anicteric Neck- no JVD Lungs- CTAB anteriorly Heart- normal rate, regular rhythm; no murmurs Abdomen- normal bowel sounds, nondistended, soft, nontender Extremities- no pretibial edema, no calf tenderness Neuro- more awake today, only answers very few questions, usually gives 1 word answers Skin- warm & dry Results & Data Results & Data ([facility]) Vital Signs (Past 12 Hours) Vital Signs Temp Pulse Pulse Resp BP Pulse Ox 09/28/20 06:48 36.7 C 89 20 126/52 L 98 09/28/20 03:25 36.5 C 85 20 146/92 H 98 09/28/20 00:08 79 09/27/20 23:20 36.4 C L 88 20 150/89 H 97 Laboratory Results 09/28/20 Range/Units 07:46 Sodium 141 (136-145) mmol/L Potassium 3.3 L (3.5-5.1) mmol/L Chloride 114 H (98-107) mmol/L Carbon Dioxide 21 (21-32) mmol/L Anion Gap 7.0 (3-11) BUN 17 (7-18) mg/dl Creatinine 0.79 (0.6-1.2) mg/dl Est Cr Clr Drug Dosing 41.8 ml/min Est GFR ( Amer) 76.9 ml/min Est GFR (Non-Af Amer) 66.4 ml/min BUN/Creatinine Ratio 21.0 H (10-20) Glucose 131 H (70-99) mg/dl Calcium 7.8 L (8.5-10.1) mg/dl Phosphorus 1.5 L* (2.5-4.9) mg/dl Magnesium 1.8 (1.8-2.4) mg/dl Medications Administered Current Inpatient Medications Acetaminophen (Acetaminophen 325 Mg Tab) 650 mg PO Q4H PRN PRN Reason: pain/fever Stop: 10/18/20 02:36 Acetaminophen (Acetaminophen 1000 Mg/100 Ml Iv) 1,000 mg IV Q8H PRN PRN Reason: pain, fever, discomfort Stop: 10/01/20 09:00 Amlodipine Besylate (Amlodipine Besylate 5 Mg Tab) 5 mg PO QAM [facility] Stop: 10/21/20 08:59 Last Admin: 09/28/20 08:11 Dose: Not Given Documented by: Glycopyrrolate (Glycopyrrolate 0.2 Mg/Ml Vial) 0.2 mg IV Q4H PRN PRN Reason: secretions Stop: 10/24/20 14:18 Hydralazine HCl (Hydralazine Hcl 20 Mg/Ml Vial) 2.5 mg IV Q6H PRN PRN Reason: hypertension Stop: 10/18/20 08:44 Last Admin: 09/27/20 12:19 Dose: 2.5 mg Documented by: Dextrose (D5w) 1,000 mls @ 60 mls/hr IV .[id number] [facility] Stop: 10/22/20 15:29 Last Admin: 09/28/20 04:56 Dose: 60 mls/hr Documented by: Pantoprazole Sodium 40 mg/ (Syringe) 10 mls @ 5 mls/min IV BID [facility] Stop: 10/23/20 20:59 Last Admin: 09/28/20 08:11 Dose: 5 mls/min Documented by: Metronidazole (Flagyl) 500 mg in 100 mls @ 100 mls/hr IV Q8 [facility] Stop: 10/01/20 13:59 Last Infusion: 09/28/20 07:30 Dose: Infused Documented by: Cefepime HCl 2,000 mg/ Syringe 20 mls @ 5 mls/min IV Q12 [facility]; Protocol Stop: 10/02/20 08:59 Last Admin: 09/28/20 08:11 Dose: 5 mls/min Documented by: Potassium Phosphate 21 mmol/ (Sodium Chloride) 507 mls @ 145 mls/hr IV 0915 ONE Stop: 09/28/20 12:44 Magnesium Oxide (Magnesium Oxide 400 Mg Tab) 400 mg PO BID [facility] Stop: 10/20/20 20:59 Last Admin: 09/28/20 08:11 Dose: Not Given Documented by: Melatonin (Melatonin 3 Mg Tab) 3 mg PO HS [facility] Stop: 10/18/20 20:59 Last Admin: 09/21/20 20:50 Dose: Not Given Documented by: Metoprolol Succinate (Metoprolol Succ 25mg Ext Rel Tab) 25 mg PO QAM [facility] Stop: 10/20/20 13:44 Last Admin: 09/28/20 08:11 Dose: Not Given Documented by: Metoprolol Tartrate (Metoprolol Tartrate 1 Mg/Ml Vial) 2.5 mg IV Q6 PRN PRN Reason: tachycardia Stop: 10/18/20 11:29 Last Admin: 09/22/20 23:52 Dose: 2.5 mg Documented by: Miconazole Nitrate (Miconazole Nitrate Powder 43 Gm) 1 appln EXT PRN PRN PRN Reason: Affected Skin Folds Stop: 10/20/20 16:41 Mirtazapine (Mirtazapine Soltab 15 Mg) 15 mg PO [facility] Stop: 10/18/20 20:59 Last Admin: 09/27/20 19:32 Dose: Not Given Documented by: Miscellaneous Information (Cefepime Consult Active) 1 ea N/A UD PRN PRN Reason: Consult Stop: 10/24/20 12:09 Morphine Sulfate (Morphine Sulfate 2 Mg/Ml Carp) 2 mg IV Q2H PRN PRN Reason: Pain or dyspnea Stop: 10/11/20 14:01 Multivitamins (Multivitamin Tab) 1 tab PO [facility] Stop: 10/18/20 08:59 Last Admin: 09/28/20 08:11 Dose: Not Given Documented by: Ondansetron HCl (Ondansetron Inj 2 Mg/Ml 2 Ml Vial) 4 mg IV Q6H PRN PRN Reason: Nausea Stop: 10/18/20 02:36 Risperidone (Risperidone Odt 0.5 Mg Soltab) 0.5 mg PO BID [facility] Stop: 10/20/20 12:29 Last Admin: 09/28/20 08:11 Dose: Not Given Documented by: Sucralfate (Sucralfate 1 Gm Tab) 1 gm PO QID [facility] Stop: 10/18/20 16:59 Last Admin: 09/28/20 08:11 Dose: Not Given Documented by:
--- NOTE | 2020-09-28 14:06 | Palliative Care Progress Note ---
Date of Service September 28, 2020 Assessment & Plan (1) Dysphagia: Plan: Per her POA, goal is permissive aspiration. She does want to continue risperidone and mirtazipine which are ODT if possible. (2) Palliative care encounter: Plan: I spoke with Maya and updated her today. She expressed her concerns about Deedee have a recurrence of catatonia. I reassured her that medications are to be given ODT. We did talk about as Deedee gets closer to her dying time, giving meds may be more problematic however, risk of catatonia will be less. She wants Deedee to be comfortable. She would like to come and visit her but has a direct exposure to covid 19 and has pending test results. (3) GI bleed: (4) Dementia: Admission and Anticipated Discharge Date Admission Date: September 18, 2020 Subjective Deedee is lethargic but answers questions and said hello to me. Giving po medications has been difficult. She denies pain or discomfort. Review of Systems Review of Systems: Unobtainable due to reduced consciousness [place] Symptom Assessment Scale Pain 0/3 Anxiety 0/3 Dyspnea 0/3 Drowsiness 2/3 Palliative Performance Score 20% Physical Exam Constitutional: + lethargic; no acute distress ENMT: Mouth: + dry oral mucous membranes Respiratory: normal respiratory effort; no labored breathing Cardiovascular: Rate/Rhythm: regular rate and regular rhythm Gastrointestinal (Abdomen): nontender Results & Data ([facility]) Vital Signs (Past 12 Hours) Vital Signs Temp Pulse Resp BP Pulse Ox 09/28/20 10:59 97.7 F 81 20 137/77 98 09/28/20 06:48 98.1 F 89 20 126/52 L 98 09/28/20 03:25 97.7 F 85 20 146/92 H 98 PG Care Time/CCT Total # of Minutes Spent Total Time Spent with Patient: Total time spent is greater than 50% in coordination of care (as documented) at patient's floor/unit and/or counseling patient: Coding Level of Care Code 31890 Subseq Hosp Care Lvl 2 Diagnoses Dysphagia R13.10 Palliative care encounter Z51.5 GI bleed K92.2 Dementia F03.90 Dementia behavioral disturbance: without behavioral disturbance Dementia type: unspecified type (1) Dementia Dementia behavioral disturbance: without behavioral disturbance Dementia type: unspecified type Qualified Code(s): F03.90 - Unspecified dementia without behavioral disturbance
[2020-09-28] MEDS ORDERED: MAGNESIUM SULFATE / D5W 1 GM/100 ML BAG IV ONE (15:00)
[2020-09-28] MEDS: MIRTAZAPINE SOLTAB 15 MG PO SCH (20:43)
[2020-09-29] MEDS: metroNIDAZOLE 500 MG/100 ML BAG IV SCH ×3 (05:11→21:56)
--- NOTE | 2020-09-29 07:32 | Hospitalist Progress Note ---
Date of Service September 29, 2020 Assessment & Plan (1) GI bleed: Plan: Pt is 89-year-old female with history of dementia and atrial fibrillation on aspirin presenting with diarrhea and melena. Acute GI bleed, likely from Gastritis Hemoglobin 14 --> 11 Hemoglobin slightly decreased , occasional maroon stools- likely residual Hg around 9-10, cont. to monitor Status post EGD: Positive for medium sized hiatal hernia, gastritis, nonobstructing Schatzi's ring Biopsy result pending Protonix IV--> 40 mg PO twice daily x4 weeks, then daily - switch to IV protonix (pt can not take PO) Sucralfate 1 g p.o. 4 times daily x2 weeks- pt not able to take PO (will DC) GI recommending decision for repeat EGD in 8 to 12 weeks to be determined by PCP given advanced age 7/24 Per nursing staff, patient had a bowel movement, brown, no blood 09/29 brown stool, no blood per nursing staff Aspiration? poss. aspiration PNA 09/23/2020 - AM observed by nursing staff that patient had difficulty swallowing, and sounded gurgly She was suctioned by nursing staff Speech therapist was contacted, and speech eval obtained at bedside recommend n .p.o. Contacted pt's granddaughter (POA), she says "no" to any feeding tubes, however she reports other family members may not be on the same page, CM aware Asked her about palliative medicine consultation She is especially concerned about her psychiatric medications, says that this has been been managed and sometimes changed without psychiatry notice Reports that pt had a catatonic episode in May, and so psychiatry consultation requested Psych consulted - Hold risperidone for now. Hold Remeron for now. No need for urgent psychiatric medication administration. Continue to search for and treat sources of infection Continue to correct patient's electrolytes, there are numerous abnormalities that may be contributing to her poor mental state including hypocalcemia, hypernatremia. Consider palliative consult Palliative medicine consulted - appreciate their help Add glycopyrrolate to reduce secretions as she is aspiration risk and unable to clear her secretions Maya (granddaughter) - POA, however there was some disagreement within the family about who the POA is. Paperwork given to CM. Appreciate palliative medicine input Per Maya, permissive aspiration, as patient likes Pepsi/aspirin. No feeding tubes. Maya continued to be concerned about patient not able to take risperidone, discussed further with psychiatry and asked them to please address these concerns Fever In the evening of September 23 patient developed fever Blood cultures, urine, stool cultx, c. diff, chest x-ray obtained Antibiotics changed to Zosyn from ceftriaxone for poss. aspiration, received dose of vancomycin Now on cefepime + Flagyl for poss. aspiration No other fever Blood cultx - NGTD UA c/w UTI U cultx - negative Stool cultx - prelim. negative CXR 1. Interstitial thickening suggestive of mild pulmonary edema. 2. Mild left lower lung opacities. This could reflect an infectious process or atelectasis. Diarrhea Likely secondary to #1 C. difficile negative Stool cultures negative resolved Stool cultx repeated d/t fever prelim negative E. coli UTI Urine culture E. coli Ceftriaxone day #5/ - finished (now antibiotics broadened) Follow repeat UA, U cultx Hypertension PRN Hydralazine Added Amlodipine 10 mg p.o. daily (on hold now) BP was improving, then low now at goal, occasionally elevated Chronic A. fib No anticoagulation secondary to bleeding Usually on metoprolol p.o. and aspirin Continue usual metoprolol 25 mg p.o. daily (now NPO) Aspirin on hold secondary to GI bleed discuss with GI re: timing of Aspirin resumption Dementia Patient lethargic when unable to take Risperidone per [facility] staff, patient is mostly awake but can be lethargic at time Always assist with feeding --Mental status improving - Now npo d/t high risk of aspiration - psychiatry consulted - pls see above Hypernatremia Na 141--> 150 D5W at 60cc/hr - now stopped PRP daily Sodium improved Na 144-145 Now Na 141 [facility]position Not clear at this time [facility] Previous plan was Return to [facility] living facility when medically stable, Na normalizes Follow-up with PCP in 1 week Patient's POA is her granddaughter TOVA Trejo and also Dr. Chan from palliative medicine in contact with Maya. Dispo to be determined. Admission and Anticipated Discharge Date Admission Date: September 18, 2020 Subjective Pt seen in follow-up for GI bleed, UTI, ?aspiration Patient is sitting up in bed, in no acute distress, resting she is able to answer a few simple questions appropriately Currently not in distress She denies any pain or discomfort Psychiatry and palliative medicine following Review of Systems Review of Systems: Unable to obtain full review of system due to cognitive status, however patient denies any pain or discomfort Physical Exam Physical Exam: General- elderly F, not in distress, however difficult to respond, only answers in 1 word answers Eyes- anicteric Neck- no JVD Lungs- CTAB anteriorly Heart- normal rate, regular rhythm; no murmurs Abdomen- normal bowel sounds, nondistended, soft, nontender Extremities- no pretibial edema, no calf tenderness Neuro- more awake today, only answers very few questions, usually gives 1 word answers Skin- warm & dry Results & Data Results & Data ([place]) Vital Signs (Past 12 Hours) Vital Signs Temp Pulse Pulse Resp BP Pulse Ox 09/29/20 07:26 36.6 C 96 H 20 117/71 94 09/29/20 03:16 36.9 C 88 16 112/70 94 09/29/20 00:14 109 H 09/28/20 23:12 36.6 C 88 16 136/61 97 Medications Administered Current Inpatient Medications Acetaminophen (Acetaminophen 1000 Mg/100 Ml Iv) 1,000 mg IV Q8H PRN PRN Reason: pain, fever, discomfort Stop: 10/01/20 09:00 Amlodipine Besylate (Amlodipine Besylate 5 Mg Tab) 5 mg PO QAM [facility] Stop: 10/21/20 08:59 Last Admin: 09/28/20 08:11 Dose: Not Given Documented by: Glycopyrrolate (Glycopyrrolate 0.2 Mg/Ml Vial) 0.2 mg IV Q4H PRN PRN Reason: secretions Stop: 10/24/20 14:18 Hydralazine HCl (Hydralazine Hcl 20 Mg/Ml Vial) 2.5 mg IV Q6H PRN PRN Reason: hypertension Stop: 10/18/20 08:44 Last Admin: 09/27/20 12:19 Dose: 2.5 mg Documented by: Dextrose (D5w) 1,000 mls @ 60 mls/hr IV .[id number] [facility] Stop: 10/22/20 15:29 Last Infusion: 09/28/20 20:40 Dose: Infused Documented by: Pantoprazole Sodium 40 mg/ (Syringe) 10 mls @ 5 mls/min IV BID [facility] Stop: 10/23/20 20:59 Last Admin: 09/28/20 20:43 Dose: 5 mls/min Documented by: Metronidazole (Flagyl) 500 mg in 100 mls @ 100 mls/hr IV Q8 [facility] Stop: 10/01/20 13:59 Last Infusion: 09/29/20 06:13 Dose: Infused Documented by: Cefepime HCl 2,000 mg/ Syringe 20 mls @ 5 mls/min IV Q12 [facility]; Protocol Stop: 10/02/20 08:59 Last Admin: 09/28/20 20:42 Dose: 5 mls/min Documented by: Melatonin (Melatonin 3 Mg Tab) 3 mg PO [facility] Stop: 10/18/20 20:59 Last Admin: 09/21/20 20:50 Dose: Not Given Documented by: Metoprolol Succinate (Metoprolol Succ 25mg Ext Rel Tab) 25 mg PO QAM [facility] Stop: 10/20/20 13:44 Last Admin: 09/28/20 08:11 Dose: Not Given Documented by: Metoprolol Tartrate (Metoprolol Tartrate 1 Mg/Ml Vial) 2.5 mg IV Q6 PRN PRN Reason: tachycardia Stop: 10/18/20 11:29 Last Admin: 09/22/20 23:52 Dose: 2.5 mg Documented by: Miconazole Nitrate (Miconazole Nitrate Powder 43 Gm) 1 appln EXT PRN PRN PRN Reason: Affected Skin Folds Stop: 10/20/20 16:41 Mirtazapine (Mirtazapine Soltab 15 Mg) 15 mg PO [facility] Stop: 10/18/20 20:59 Last Admin: 09/28/20 20:43 Dose: 15 mg Documented by: Miscellaneous Information (Cefepime Consult Active) 1 ea N/A UD PRN PRN Reason: Consult Stop: 10/24/20 12:09 Morphine Sulfate (Morphine Sulfate 2 Mg/Ml Carp) 2 mg IV Q2H PRN PRN Reason: Pain or dyspnea Stop: 10/11/20 14:01 Ondansetron HCl (Ondansetron Inj 2 Mg/Ml 2 Ml Vial) 4 mg IV Q6H PRN PRN Reason: Nausea Stop: 10/18/20 02:36 Risperidone (Risperidone Odt 0.5 Mg Soltab) 0.5 mg PO BID [facility] Stop: 10/20/20 12:29 Last Admin: 09/28/20 20:43 Dose: 0.5 mg Documented by:
[2020-09-29] MEDS: CEFEPIME 2,000 MG in SYRINGE 0 ML IV SCH ×2 (07:44→20:00)
[2020-09-29] MEDS: PANTOprazole 40 MG in SYRINGE 0 ML IV SCH ×2 (07:44→20:00)
[2020-09-29] MEDS: risperiDONE ODT 0.5 MG SOLTAB PO SCH ×2 (07:44→20:00)
[2020-09-29] MEDS: METOPROLOL SUCC 25MG EXT REL TAB PO SCH (07:45)
--- NOTE | 2020-09-29 11:01 | Communication Note ---
Date of Service: September 29, 2020 89-year-old female with altered mental status secondary to dementia/delirium. 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 Discussion was had with the patient's granddaughter, Maya, this morning and it was explained that a diagnosis of catatonia currently is very unlikely given her laboratory abnormalities as well as her current mental state. Patient was able to give 1 word answers in response to some questions asked by nursing staff this morning, which is not indicative of catatonia. It was explained to the daughter that the treatment for catatonia would be IV lorazepam which could potentially be life ending for this patient. Furthermore it was explained that lorazepam and risperidone would serve to make the patient more lethargic at this time, and it is the recommendation of the psychiatry team that the patient does not continue taking risperidone and lorazepam, and that treatment should be focused on making patient comfortable. Granddaughter expressed agreement. Recommendations: Palliative for primary team to continue to have end-of-life discussions with family Discontinue risperidone and lorazepam
[2020-09-29] MEDS: MIRTAZAPINE SOLTAB 15 MG PO SCH (20:00)
[2020-09-30] MEDS: metroNIDAZOLE 500 MG/100 ML BAG IV SCH ×2 (05:43→15:20)
[2020-09-30] MEDS: risperiDONE ODT 0.5 MG SOLTAB PO SCH (09:44)
[2020-09-30] MEDS: METOPROLOL SUCC 25MG EXT REL TAB PO SCH (09:44)
[2020-09-30] MEDS: PANTOprazole 40 MG in SYRINGE 0 ML IV SCH (09:46)
[2020-09-30] MEDS: CEFEPIME 2,000 MG in SYRINGE 0 ML IV SCH (09:46)
[2020-09-30] MEDS ORDERED: ONDANSETRON INJ 2 MG/ML 2 ML VIAL IV PRN (15:43)
[2020-09-30] MEDS ORDERED: LORazepam 0.5 MG TAB PO PRN (15:43)
[2020-09-30] MEDS ORDERED: ONDANSETRON 4 MG OD TAB SL PRN (15:43)
[2020-09-30] MEDS ORDERED: LORazepam 0.5 MG/1 ML VIAL IV PRN (15:43)
[2020-09-30] MEDS ORDERED: COUGH DROP (SUGAR FREE) LOZ 24 LOZ/1 BOX BUCCAL PRN (15:56)
--- NOTE | 2020-09-30 16:27 | Palliative Care Progress Note ---
Date of Service September 30, 2020 Assessment & Plan (1) Dysphagia: Plan: Has been on permissive aspiration but now unable to take anything by mouth. (2) Palliative care encounter: Plan: Deedee has had decline and appears to be near her dying time. I spoke with her granddaughter, Maya, on the phone and updated her. At this time she does not appear to have any benefit from antibiotic therapy and Maya would like focus to be entirely comfort directed. Comfort measures ordered. RN will arrange zoom visit with Maya as she is out of state and unable to travel. She has positive covid test after direct exposure. Deedee does have some family in the area who will be in to visit her. (3) Rectal bleeding: (4) Dementia: (5) AMS (altered mental status): Admission and Anticipated Discharge Date Admission Date: September 18, 2020 Subjective More lethargic today. Not able to tolerate any po medications. Review of Systems Review of Systems: Unobtainable due to reduced consciousness [place] Symptom Assessment Scale Pain 0/3 Dyspnea 0/3 Palliative Performance Score 10% Physical Exam Constitutional: + lethargic; no acute distress ENMT: Mouth: + dry oral mucous membranes Respiratory: normal respiratory effort; no labored breathing Cardiovascular: knees and feet mottled, edema Gastrointestinal (Abdomen): soft, nontender Neurologic: + obtunded positive corneal reflex Results & Data ([facility]) Vital Signs (Past 12 Hours) Vital Signs Temp Pulse Resp BP Pulse Ox 09/30/20 15:51 97.9 F 102 H 97 H 139/82 97 09/30/20 11:15 98.2 F 114 H 20 132/75 96 09/30/20 07:26 97.9 F 107 H 20 125/72 97 PG Care Time/CCT Total # of Minutes Spent Total Time Spent: 30 Total Time Spent with Patient: Total time spent is greater than 50% in coordination of care (as documented) at patient's floor/unit and/or counseling patient: prognosis, symptom management, family education and support Coding Level of Care Code 84148 Subseq Hosp Care Lvl 2 Diagnoses Dysphagia R13.10 Palliative care encounter Z51.5 Rectal bleeding K62.5 Dementia F03.90 Dementia behavioral disturbance: without behavioral disturbance Dementia type: unspecified type AMS (altered mental status) R41.82 (1) Dementia Dementia behavioral disturbance: without behavioral disturbance Dementia type: unspecified type Qualified Code(s): F03.90 - Unspecified dementia without behavioral disturbance
--- NOTE | 2020-09-30 17:20 | Hospitalist Progress Note ---
Date of Service September 30, 2020 Assessment & Plan (1) GI bleed: Plan: Patient is an 89 yr female with history of dementia and atrial fibrillation on aspirin presenting with diarrhea and melena. Acute GI bleed, likely from Gastritis Aspiration? poss. aspiration PNA Diarrhea E. coli UTI Hypertension Chronic A. fib Dementia Hypernatremia Plan Transitioned to comfort measures only as per patient;s Family wishes Appreciate Palliative care help Admission and Anticipated Discharge Date Admission Date: September 18, 2020 Subjective Patient is seen and examined at bedside Obtunded during my encounter Unable to provide any history Discussed with palliative care today Transitioned to comfort measures only Review of Systems Review of Systems: Unobtainable due to reduced consciousness Physical Exam Physical Exam: Physical Exam: Vitals signs as noted above General Appearance:Ill appearing, Obtunded, Elderly Head: normocephalic, Atraumatic Eyes: normal inspection Neck: supple, Trachea midline Respiratory/Chest: Normal breath sounds, CTA Cardiovascular: Irregularly irregular,, No murmur Abdomen/GI:Soft, Non tender, Bowel sounds present Extremities/Musculoskeletal:normal inspection, B/L LE edema Neurologic/Psych:Obtunded, Unable to perform complete neuro exam Skin: normal color, warm Results & Data Results & Data ([facility]) Vital Signs (Past 12 Hours) Vital Signs Temp Pulse Resp BP Pulse Ox 09/30/20 15:51 36.6 C 102 H 97 H 139/82 97 09/30/20 11:15 36.8 C 114 H 20 132/75 96 09/30/20 07:26 36.6 C 107 H 20 125/72 97
--- NOTE | 2020-10-01 12:47 | Palliative Care Progress Note ---
Date of Service October 01, 2020 Assessment & Plan (1) Dysphagia: Plan: Permissive aspiration per family with goal being comfort care. Her mental status appears to wax and wane. She would be stable for return to [facility] with hospice care. (2) Palliative care encounter: Plan: Her granddaughter is unable to visit due to covid 19. RN to arrange zoom visit for her today with Deedee's improved mental status. (3) GI bleed: (4) Dementia: (5) AMS (altered mental status): Admission and Anticipated Discharge Date Admission Date: September 18, 2020 Subjective More responsive today. Answers questions. Taking sips of Pepsi and asking for more. Denies pain. Review of Systems Review of Systems: [place] Symptom Assessment Scale Pain 0/3 Dyspnea 0/3 Anxiety 0/3 Fatigue 3/3 Drowsiness 2/3 Palliative Performance Score 20% Physical Exam Constitutional: + lethargic; no acute distress ENMT: Mouth: + dry oral mucous membranes no obvious aspiration with small sips of Pepsi Respiratory: normal respiratory effort; no labored breathing Gastrointestinal (Abdomen): nontender Musculoskeletal: Extremities: + muscle atrophy PG Care Time/CCT Total # of Minutes Spent Total Time Spent with Patient: Total time spent is greater than 50% in coordination of care (as documented) at patient's floor/unit and/or counseling patient: Coding Level of Care Code 69870 Subseq Hosp Care Lvl 2 Diagnoses Dysphagia R13.10 Palliative care encounter Z51.5 GI bleed K92.2 Dementia F03.90 Dementia behavioral disturbance: without behavioral disturbance Dementia type: unspecified type AMS (altered mental status) R41.82 (1) Dementia Dementia behavioral disturbance: without behavioral disturbance Dementia type: unspecified type Qualified Code(s): F03.90 - Unspecified dementia without behavioral disturbance
--- NOTE | 2020-10-01 17:00 | Hospitalist Progress Note ---
Date of Service October 01, 2020 Assessment & Plan (1) GI bleed: Plan: Patient is an 89 yr female with history of dementia and atrial fibrillation on aspirin presenting with diarrhea and melena. Acute GI bleed, likely from Gastritis Aspiration? poss. aspiration PNA Diarrhea E. coli UTI Hypertension Chronic A. fib Dementia Hypernatremia Plan Currently on comfort measures only Appreciate Palliative care help Continue comfort medications Admission and Anticipated Discharge Date Admission Date: September 18, 2020 Subjective Patient is seen and examined at bedside More alert, awake today Nonverbal mostly No distress on exam Palliative care following Review of Systems Review of Systems: Other Physical Exam Physical Exam: Physical Exam: Vitals signs as noted above General Appearance:Ill appearing, Obtunded, Elderly Head: normocephalic, Atraumatic Eyes: normal inspection Neck: supple, Trachea midline Respiratory/Chest: Normal breath sounds, CTA Cardiovascular: Irregularly irregular,, No murmur Abdomen/GI:Soft, Non tender, Bowel sounds present Extremities/Musculoskeletal:normal inspection, B/L LE edema Neurologic/Psych:Obtunded, Unable to perform complete neuro exam Skin: normal color, warm
--- NOTE | 2020-10-02 12:19 | Palliative Care Progress Note ---
Date of Service October 02, 2020 Assessment & Plan (1) Dysphagia: Plan: Permissive aspiration per family wishes. Mental status varies but she is tolerating fluids on sponge when awake. (2) Palliative care encounter: Plan: Plan for return to [facility] today with hospice. I spoke with her granddaughter and POA, Meagan Kincaid, on the phone. She had a zoom visit with Deedee the other day. They are recovering from covid and planning to drive in next week from [place] of [place]. We reviewed goals of care and completed POLST form accordingly with DNR, comfort measures only, no artificial feeding, no antibiotics. (3) Rectal bleeding: (4) Dementia: (5) AMS (altered mental status): Admission and Anticipated Discharge Date Admission Date: September 18, 2020 Subjective Less responsive today which is variable. Appears comfortable. Review of Systems Review of Systems: Unobtainable due to reduced consciousness [place] Symptom Assessment Scale PainAD 0/3 Dyspnea by observation 0/3 Palliative Performance Score 20% Physical Exam Constitutional: no acute distress ENMT: Mouth: + dry oral mucous membranes Respiratory: normal respiratory effort; no labored breathing Gastrointestinal (Abdomen): Inspection/Auscultation: abdomen not distended Musculoskeletal: Extremities: + muscle atrophy Neurologic: + obtunded PG Care Time/CCT Total # of Minutes Spent Total Time Spent: 35 Total Time Spent with Patient: Total time spent is greater than 50% in coordination of care (as documented) at patient's floor/unit and/or counseling patient: family education and support, goals of care, POLST Coding Level of Care Code 53735 Subseq Hosp Care Lvl 3 Diagnoses Dysphagia R13.10 Palliative care encounter Z51.5 Rectal bleeding K62.5 Dementia F03.90 Dementia behavioral disturbance: without behavioral disturbance Dementia type: unspecified type AMS (altered mental status) R41.82 (1) Dementia Dementia behavioral disturbance: without behavioral disturbance Dementia type: unspecified type Qualified Code(s): F03.90 - Unspecified dementia without behavioral disturbance
--- NOTE | 2020-10-02 13:19 | Hospitalist Progress Note ---
Date of Service October 02, 2020 Assessment & Plan (1) GI bleed: Plan: Patient is an 89 yr female with history of dementia and atrial fibrillation on aspirin presenting with diarrhea and melena. Acute GI bleed, likely from Gastritis Aspiration? poss. aspiration PNA Diarrhea E. coli UTI Hypertension Chronic A. fib Dementia Hypernatremia Plan Currently on comfort measures only Appreciate Palliative care help Continue comfort medications Plan to discharge to hospice today Admission and Anticipated Discharge Date Admission Date: September 18, 2020 Subjective Patient is seen and examined at bedside No distress on exam Denies any pain, dyspnea Plan to be discharged today Review of Systems Review of Systems: Other Physical Exam Physical Exam: Physical Exam: Vitals signs as noted above General Appearance:Ill appearing, Elderly Head: normocephalic, Atraumatic Eyes: normal inspection Neck: supple, Trachea midline Respiratory/Chest: Normal breath sounds, CTA Cardiovascular: Irregularly irregular,, No murmur Abdomen/GI:Soft, Non tender, Bowel sounds present Extremities/Musculoskeletal:normal inspection, B/L LE edema Neurologic/Psych:Unable to perform complete neuro exam Skin: normal color, warm
--- NOTE | 2020-10-02 13:31 | Discharge Summary ---
Date of Service October 02, 2020 Admission HPI Per Admitting Provider The patient is an 89 yo female with a PMH including HTN, AMS, COVID-19, insomnia, dementia, CHF, anxiety with depression who is referred from [facility] due to the above symptoms.. Work-up in the emergency department included the following abnormalities: AST 65, creatinine 1.23, glucose 177, WBC 11.80, C. difficile negative. Urinalysis was positive for UTI, and patient received ceftriaxone 1 g IV in the ED Admission Exam Per Admitting Provider Physical Exam Physical Exam: The patient is awake and unresponsive, normocephalic and atraumatic, lying in bed and in no acute distress. HEENT--PERRL, EOMI, mucous membranes and oropharynx dry. Neck--supple. No JVD. No bruits. Thyroid normal, trachea midline, no adenopathy. Heart--normal S1 and S2. No murmurs, rubs or gallops. Lungs--clear bilaterally, no respiratory distress, no accessory muscle use. Abdomen--normal bowel sounds and soft. Nontender. Nondistended, no hernias or masses, no organomegaly. Extremities--no cyanosis or clubbing. No edema. Dermatologic--normal skin turgor, normal color, no abnormal lymph nodes, no rash. Neurologic--cranial nerves II through XII grossly intact. Rheumatologic--limited exam Psychiatric--unresponsive Principal Diagnosis Acute GI bleed Possible Aspiration Pneumonia E. coli UTI Hypertension Chronic A. fib Dementia Hypernatremia Discharge Data Allergies Allergy/AdvReac Type Severity Reaction Status Date / Time clonidine Allergy Unknown Unknown Verified 09/20/20 13:40 hydrochlorothiazide Allergy Unknown Unknown Verified 09/20/20 13:40 nitrofurantoin Allergy Unknown Unknown Verified 09/20/20 13:40 Sulfa (Sulfonamide Allergy Unknown Unknown Verified 09/20/20 13:40 Antibiotics) lactose AdvReac Unknown Gastrointestinal Verified 09/26/20 11:13 Upset Consultations 09/18/20 00:49 ED Decision to Admit Stat 09/18/20 08:43 Consult Gastroenterology Routine 09/23/20 13:55 Consult Psychiatry Routine 09/23/20 15:47 Consult Palliative Care Routine 09/30/20 15:44 Consult Palliative Care Routine Procedures Performed Operation Date: 09/18/20 17:00 Actual Procedures p EGD Biopsy Cytology(Not Applicable) - Dustin Steiner, Ordered Studies 09/17/20 22:13 CT abd pelvis IV con only Urgent 09/20/20 09:35 CT head/brain wo con Stat 09/24/20 04:07 CT head/brain wo con Urgent Hospital Course (1) GI bleed: Patient is an 89 yr female with history of dementia and atrial fibrillation on aspirin presenting with diarrhea and melena. Acute GI bleed, likely from Gastritis Aspiration? poss. aspiration PNA Diarrhea E. coli UTI Hypertension Chronic A. fib Dementia Hypernatremia Plan Currently on comfort measures only Appreciate Palliative care help Continue comfort medications Plan to discharge to hospice today Total Time Total Time Spent Total Time Spent (In Minutes): 39 minutes Discharge Plan Discharge Items Patient Disposition: Hospice - Medical Facility Reason For Visit: UTI, DIARRHEA Discharge Diagnosis: Acute GI bleed Possible Aspiration Pneumonia E. coli UTI Hypertension Chronic A. fib Dementia Hypernatremia Goals: Per POA, Meagan Bregar, monitor for catatonia. Activity: Per Instructions section Exercise/Sports: None Non-emergency contact: Primary Care Provider Call non-emergency contact if: you have any medication questions, your symptoms worsen, your pain is concerning for you and you have a fever [facility] - Diet: Regular Diet Texture: Pureed (blended smooth) Addtl Attending Provider Instructions: Follow up with your Physician at [facility] for further management Pending Studies at Discharge: No Stand-Alone Forms: My [facility] Skilled Items Patient informed of condition?: Yes DNR: Yes Discharge Level of Care: Other Communicable Disease: No Discharge Prognosis: Other Lines: None Urinary Catheter: No Medications and DC Order Prescriptions: New lorazepam 0.5 mg Tablet 0.5 mg PO Q4H PRN (Reason: anxiety) Qty: 7 RF: 0 ondansetron 4 mg Tablet,Disintegrating 4 mg sublingual Q4H PRN (Reason: nausea and vomiting) Qty: 7 RF: 0 Continued acetaminophen 325 mg Tablet 650 mg PO Q8H MDD 3 GMS APAP/24 HOURS PRN (Reason: Fever Or Pain) RF: 0 melatonin 3 mg Tablet 3 mg PO HS RF: 0 Discontinued multivitamin [Daily-Shaunna] Tablet 1 tab PO QAM RF: 0 aspirin [Aspirin Low Dose] 81 mg Tablet,Delayed Release (Dr/Ec) 81 mg PO QAM RF: 0 metoprolol succinate 25 mg tablet extended release 24 hr 25 mg PO QAM RF: 0 risperidone 0.5 mg tablet 0.5 mg PO BID RF: 0 furosemide 20 mg tablet 20 mg PO MOWEFR RF: 0 lorazepam 0.5 mg tablet 0.5 mg PO BID RF: 0 mirtazapine 15 mg tablet,disintegrating 15 mg PO HS RF: 0 Discharge Orders: Discharge Order (Routine); Ordered 10/02/20 Ordered By: Derik Kinsey Admission Data Admit Date/Time: 09/18/20 01:03 Attending Provider: Derik Kinsey Admit Provider: Lane Beckman Primary Care Provider: DemarcoSydnee rowe Providers: Lane Beckman ; Dustin Steiner ; Augustine Zhao ; Sona Ann ; [facility], ; Yamile Hansen ; Jorge Barriga ; Kenia Chan ; [facility] ; [facility], Other Interventions: Discharge Summary Assessment (RN) Last Done: 10/02/20 13:56
== END 2020-10-02 18:34 | disposition hospice, home (50) | DRG 377 ==
LOC: ED 20:46 → 3W 09-18 01:03 → SUATTDRO 09-18 01:03 → 3W 09-18 02:01 → 2W 09-18 09:35